=== PATIENT | male | born 1940 | race Caucasian/White ===

== ENCOUNTER 2018-07-21 14:22 | Observation (INO) ==
[2018-07-21] MEDS ORDERED: 0.9 % Sodium Chloride 1,000 ML IVC ONE (15:21)
[2018-07-21] MEDS ORDERED: methylPREDNISolone 125 MG/2 ML VIAL IVP ONE (15:21)
[2018-07-21] MEDS ORDERED: Isovue-370 500 ML INFUS..BTL IV ONE (15:21)
[2018-07-21] MEDS ORDERED: Azithromycin 500 MG in D5% in Water 250 ML IVPB ONE (15:21)
[2018-07-21] MEDS ORDERED: cefTRIAXone 1,000 MG in Water for inj. (sterile) 20 ML 10 ML IVP ONE (15:21)
[2018-07-21] MEDS ORDERED: Ipratropium/Albuterol Neb 3 ML IH ONE (15:21)
--- NOTE | 2018-07-21 15:53 | Emergency Department Note ---
Disposition Clinical Impression: Community acquired pneumonia Qualifiers: Laterality: right Lung location: lower lobe of lung Qualified Code(s): J18.1 - Lobar pneumonia, unspecified organism Disposition: Admitted As Inpatient Condition: Fair Referrals: Igor Casarez MD [Partnered Physician] - Forms: ED Satisfaction Letter Time of Disposition: 18:46 SOB HPI - General Chief Complaint: ED Shortness of Breath/Dyspnea Stated Complaint: SOB, constipation Time Seen by Provider: 07/21/18 14:50 Source: patient Mode of arrival: ambulatory Limitations: no limitations Nursing Notes Reviewed: Yes Vital Signs Reviewed: Yes - History of Present Illness 77-year-old male with medical history including liver cancer currently undergoing chemotherapy treatment as well as COPD. Patient did have surgery partially one year ago to remove part of the liver to remove the cancer there st ill seasonally still undergoing chemotherapy treatment. Did have chemotherapy done on currently on no 4 week course. He said he has not had a bowel movement since last which is abnormal for him but the main reasoning's years of hard time breathing that worsened over the last week and discontinued it worse. Does have COPD while or congestion a lot more sinus drainage. Patient status does not feel well they have noted fevers at home as well. Patient said he does not have pain anywhere or no abdominal pain no chest pain just does not feel well all over. Otherwise has no other complaints including nausea, vomiting, headache, blurry vision, neck pain, back pain, chest pain, abdominal pain, changes with pain with urination, pain or tingling going down the arms or legs or generalized weakness. - Related Data Home Medications Medication Instructions Recorded Confirmed ARIPiprazole [Abilify] 2 mg PO HS 06/11/18 07/17/18 Amlodipine Besylate 5 mg PO DAILY 06/11/18 07/17/18 Omeprazole [PriLOSEC] 20 mg PO DAILY 06/11/18 07/17/18 Ciclopirox/Ure/Camph/Menth/Euc 34.6 ml TP AD 06/26/18 07/17/18 [Ciclodan 8% Kit] Ipratropium/Albuterol Neb [Duoneb] 3 ml IH Q6HR 07/21/18 07/21/18 Trazodone HCl 100 mg PO HS 01/07/19 01/07/19 Previous Rx's Medication Instructions Recorded Ondansetron [Zofran] 8 mg PO Q8HR PRN #90 tablet 06/11/18 Prochlorperazine Maleate 10 mg PO Q8HR PRN #90 tablet 06/11/18 [Compazine] Allergies Allergy/AdvReac Type Severity Reaction Status Date / Time Bzjbosq-Hnj-Nsb Reductase AdvReac Joint Pain Verified 07/17/18 13:24 Inhibitor [Statins] Tetanus Vaccines and Toxoid AdvReac Rash Verified 07/17/18 13:24 [Tetanus Vaccines & Toxoid] All systems ED: reviewed and negative except as stated. Review of Systems: As Per HPI Past Medical History - Past Medical History Attestation: Yes The following information was validated with the patient. Source: patient Medical history: Reports: arthritis, cancer, COPD, coronary artery disease, RA, other Surgical history: Reports: angioplasty/stent, appendectomy Psychiatric history: Reports: no psych history - Social History Smoking Status: Former smoker Smokeless Tobacco Status: No Alcohol use: Reports: none Drug use: Reports: none Physical Exam - General Limitations: no limitations General appearance: alert, in no apparent distress - Head Head exam: atraumatic, normocephalic, normal inspection - Eye Eye exam: Present: normal appearance, PERRL, EOMI - ENT ENT exam: normal exam, normal oropharynx, mucous membranes moist - Neck Neck exam: Present: normal inspection, full ROM, trachea midline - Chest Chest inspection: Present: normal inspection, symmetric chest wall rise - Respiratory Respiratory exam: Present: wheezes (And rhonchi bilaterally throughout), accessory muscle use, prolonged expiratory phase. Absent: respiratory distress, stridor - Cardiovascular Cardiovascular exam: Present: normal rhythm, tachycardia, normal heart sounds - Abdominal Exam Abdominal exam: Present: soft, Non-Tender, normal bowel sounds. Absent: tenderness, distention, guarding, rebound, rigidity - Extremities Exam Extremities exam: Present: pedal edema (1+) - Expanded Lower Extremity Exam Hip/Pelvis exam: Present: normal inspection, full ROM Upper leg exam: Present: normal inspection, full ROM Knee exam: Present: normal inspection, full ROM Lower leg exam: Present: normal inspection, full ROM Ankle exam: Present: normal inspection, full ROM Foot/toe exam: Present: normal inspection, full ROM Neurovascular/Tendon exam: Absent: motor deficit, sensory deficit, tendon deficit - Back Exam Back exam: Present: normal inspection, full ROM. Absent: tenderness - Neurological Exam Neurological exam: Present: alert, oriented X3 - Skin Skin exam: Present: warm, dry, intact, normal color Course Course Narrative: Patient does meet Sirs criteria so we will get septic protocol set including CBC, BMP, lactate, blood cultures we will give patient 1 L IV fluids and reassess patient does have history of fluid overloaded so we will not give him the full 20 ml per kilogram bolus. We will give patient azithromycin and ceftriaxone IV as this most likely sounds like pneumonia. We will get chest x- ray. Patient does have cancer so there is risk for possible pulmonary embolism due to patient being hypoxic as well as tachycardic we will get CT Lilly of the chest. Patient most likely will be admitted for further evaluation. Patient is not in severe sepsis or septic shock at this time blood pressure is stable. - Reevaluation(s) Reevaluation #1: Patient was actively vomiting he says he normally takes Compazine and Zofran due to the worry about akathisia as I will just give patient 4 mg Zofran see if that helps and then reevaluate. Time: 16:01 Vital Signs Temperature 99.5 F 07/21/18 14:28 Pulse Rate 106 07/21/18 14:28 Respiratory Rate 22 07/21/18 14:28 Blood Pressure 145/66 07/21/18 14:28 O2 Sat by Pulse Oximetry 93 07/21/18 14:28 Temperature 100.1 F H 07/21/18 14:49 Pulse Rate 118 07/21/18 15:44 Respiratory Rate 26 07/21/18 15:44 Blood Pressure 145/66 07/21/18 14:49 O2 Sat by Pulse Oximetry 95 07/21/18 15:44 Oxygen Delivery Oxygen Delivery Nasal Cannula Shortness of Breath/Dyspnea - [facility] Narrative Medical decision making narrative: Patient here with history of hepatic carcinoma. He is currently on chemotherapy. He did meet Sirs criteria so we started patient on his 1 L of IV fluid as did not want to fluid overload the patient. He was on septic shock or and severe sepsis. Did start antibiotics ceftriaxone and azithromycin is most likely ischemia acquired pneumonia. Did get blood cultures which are still pending. Otherwise no labs at any acute findings. Patient was not neutropenic but did have low white count. Patient did have a fever. Patient is feeling much better after receiving 2 nebs antibiotics and fluid bolus. Due to patient having the kidney acquired pneumonia based on CT Lilly the chest with no pulmonary embolism we felt that admission was warranted. I spoke with Dr. Spicer who agreed to admit the patient to the hospitalist service. Patient is admitted in stable condition. Chest X-Ray 07/21/18 15:21 IMPRESSION: Mild pulmonary edema. D/ / 07/21/2018 16:38:55 Vinnie Hutchison MD / denton Interpreting Provider: Vinnie Hutchison MD Chest CTA 07/21/18 15:23 IMPRESSION: 1. No evidence for acute pulmonary embolism but note that studies somewhat limited due to less than optimal enhancement of particularly in the lobar and segmental pulmonary arteries. 2. New posterior right lower lobe bronchiolar wall thickening with some new patchy parenchymal densities and increase in bandlike reticular densities suggest bronchitis and atelectasis and possible developing pneumonia. D/ / Scout Pineda MD / Scout Pineda MD Interpreting Provider: Scout Pineda MD - Medical Records Medical records reviewed: Yes I reviewed the patient's medical records. - Lab Data Lab results reviewed: Yes I reviewed the patient's lab results. Result diagrams: 07/21/18 16:24 07/21/18 15:21 Lab Results 07/21/18 07/21/18 07/21/18 Range/Units 15:21 15:30 15:50 WBC (4.3-11.1) K/mcL RBC (4.19-5.50) M/mcL Hgb (12.9-16.9) g/dL Hct (37.5-50.1) % MCV (83.0-100.0) fL MCH (28.0-33.3) pg MCHC (31.6-35.5) g/dL RDW (11.5-14.5) % Plt Count (140-400) K/mcL MPV (9.4-12.4) fL Immature Gran % (0-4) % Seg Neutrophils % % Lymphocytes % % Monocytes % % Eosinophils % % Basophils % % Neutrophils # (1.6-8.9) K/mcL Lymphocytes # (0.6-4.6) K/mcL Monocytes # (0.0-1.3) K/mcL Eosinophils # (0.0-0.6) K/mcL Basophils # (0.0-0.2) K/mcL Sodium 133 L (136-145) mEq/L Potassium 4.5 (3.5-5.1) mEq/L Chloride 99 (98-107) mEq/L Carbon Dioxide 26 (23-29) mEq/L BUN 24 H (8-23) mg/dL Creatinine 0.99 (0.70-1.30) mg/dL Est GFR ( Amer) > 60 (> 60) Est GFR (Non-Af Amer) > 60 (> 60) BUN/Creatinine Ratio 24 (6-26) Glucose 180 H (70-105) mg/dL Calculated Osmolality 285 (280-300) Lactic Acid 1.1 (0.5-2.2) mmol/L Calcium 9.6 (8.6-10.3) mg/dL Troponin I < 0.03 (< 0.04) ng/mL B-Natriuretic Peptide (Less than 100) pg/mL Urine Color (Yellow) Urine Clarity (Clear) Urine pH (5.0-8.0) pH Units Ur Specific [place] (1.010-1.025) Urine Protein (Neg-Trace) mg/dL Urine Glucose (UA) (Normal) mg/dL Urine Ketones (Negative) mg/dL Urine Blood (Negative) Urine Nitrite (Negative) Urine Bilirubin (Negative) Urine Urobilinogen (Normal) mg/dL Ur Leukocyte Esterase (Negative) Urine Microscopic RBC (0-3) per hpf Urine Microscopic WBC (0-3) per hpf Ur Squamous Epith Cells (None-Few) per lpf Urine Bacteria (None-Few) per hpf Hyaline Casts (None-Few) per lpf Ur Culture Indicated? (NO) Specimen Rejected Clotted 07/21/18 07/21/18 07/21/18 Range/Units 16:00 16:24 16:24 WBC 4.5 (4.3-11.1) K/mcL RBC 4.45 (4.19-5.50) M/mcL Hgb 13.7 D (12.9-16.9) g/dL Hct 39.5 (37.5-50.1) % MCV 88.8 (83.0-100.0) fL MCH 30.8 (28.0-33.3) pg MCHC 34.7 (31.6-35.5) g/dL RDW 15.9 H (11.5-14.5) % Plt Count 155 (140-400) K/mcL MPV 10.0 (9.4-12.4) fL Immature Gran % 1.8 (0-4) % Seg Neutrophils % 53.4 % Lymphocytes % 34.7 % Monocytes % 6.5 % Eosinophils % 2.9 % Basophils % 0.7 % Neutrophils # 2.4 (1.6-8.9) K/mcL Lymphocytes # 1.6 (0.6-4.6) K/mcL Monocytes # 0.3 (0.0-1.3) K/mcL Eosinophils # 0.1 (0.0-0.6) K/mcL Basophils # 0.0 (0.0-0.2) K/mcL Sodium (136-145) mEq/L Potassium (3.5-5.1) mEq/L Chloride (98-107) mEq/L Carbon Dioxide (23-29) mEq/L BUN (8-23) mg/dL Creatinine (0.70-1.30) mg/dL Est GFR ( Amer) (> 60) Est GFR (Non-Af Amer) (> 60) BUN/Creatinine Ratio (6-26) Glucose (70-105) mg/dL Calculated Osmolality (280-300) Lactic Acid (0.5-2.2) mmol/L Calcium (8.6-10.3) mg/dL Troponin I (< 0.04) ng/mL B-Natriuretic Peptide 36 (Less than 100) pg/mL Urine Color Yellow (Yellow) Urine Clarity Clear (Clear) Urine pH 6.0 (5.0-8.0) pH Units Ur Specific [place] 1.016 (1.010-1.025) Urine Protein 30 H (Neg-Trace) mg/dL Urine Glucose (UA) Normal (Normal) mg/dL Urine Ketones Negative (Negative) mg/dL Urine Blood Negative (Negative) Urine Nitrite Negative (Negative) Urine Bilirubin Negative (Negative) Urine Urobilinogen Normal (Normal) mg/dL Ur Leukocyte Esterase Negative (Negative) Urine Microscopic RBC 0-3 (0-3) per hpf Urine Microscopic WBC 0-3 (0-3) per hpf Ur Squamous Epith Cells Moderate H (None-Few) per lpf Urine Bacteria None Seen (None-Few) per hpf Hyaline Casts None Seen (None-Few) per lpf Ur Culture Indicated? NO (NO) Specimen Rejected - Radiology Data Radiology results reviewed: Yes I reviewed the patient's radiology results. - EKG Data EKG attestation: Yes I reviewed and interpreted this EKG. EKG results narrative: EKG done at 1435 review myself and the attending shows sinus rhythm with a right bundle-branch block and PVCs at a rate of 114, GA interval 146, QRS 150, QTC 409. There is no acute ST changes no acute T-wave changes no other signs of ischemia. There is a right bundle branch block no other blocks. No hypertrophy, heart stent. No WPW/Brugada/HOCM. There are various PVCs. No changes except for the tachycardia in the old EKG done 08/17/16.
[2018-07-21] MEDS ORDERED: Prochlorperazine 10 MG/2 ML VIAL IVP STA (15:54)
[2018-07-21] MEDS ORDERED: Ondansetron 4 MG/2 ML VIAL IVP ONE (15:57)
--- NOTE | 2018-07-21 16:13 | Emergency Department Note ---
Disposition Clinical Impression: Community acquired pneumonia Disposition: Admitted As Inpatient Condition: Fair General Adult HPI - General Chief complaint: ED Shortness of Breath/Dyspnea Stated complaint: SOB, constipation Time Seen by Provider: 07/21/18 14:50 Source: patient Mode of arrival: ambulatory Limitations: no limitations Nursing Notes Reviewed: Yes Vital Signs Reviewed: Yes - History of Present Illness Pain Scale: 0 - Related Data Home Medications Medication Instructions Recorded Confirmed ARIPiprazole [Abilify] 2 mg PO HS 06/11/18 07/21/18 Omeprazole [PriLOSEC] 20 mg PO DAILY 06/11/18 07/21/18 RX: Amlodipine Besylate 5 mg PO DAILY 06/11/18 07/21/18 Ciclopirox/Ure/Camph/Menth/Euc 34.6 ml TP AD 06/26/18 07/21/18 [Ciclodan 8% Kit] Ipratropium/Albuterol Neb [Duoneb] 3 ml IH Q6HR 07/21/18 07/21/18 RX: Trazodone HCl 100 mg PO HS 07/21/18 07/21/18 Previous Rx's Medication Instructions Recorded Ondansetron [Zofran] 8 mg PO Q8HR PRN #90 tablet 06/11/18 Prochlorperazine Maleate 10 mg PO Q8HR PRN #90 tablet 06/11/18 [Compazine] Allergies Allergy/AdvReac Type Severity Reaction Status Date / Time Opdaisk-Aju-Jts Reductase AdvReac Joint Pain Verified 07/17/18 13:24 Inhibitor [Statins] Tetanus Vaccines and Toxoid AdvReac Rash Verified 07/17/18 13:24 [Tetanus Vaccines & Toxoid] Past Medical History - Past Medical History Medical history: Reports: arthritis, cancer, COPD, coronary artery disease, RA, other Surgical history: Reports: angioplasty/stent, appendectomy Psychiatric history: Reports: no psych history - Social History Smoking Status: Former smoker Smokeless Tobacco Status: No Alcohol use: Reports: none Drug use: Reports: none Physical Exam - General Limitations: no limitations General appearance: alert, in no apparent distress Course Vital Signs Temperature 99.5 F 07/21/18 14:28 Pulse Rate 106 07/21/18 14:28 Respiratory Rate 22 07/21/18 14:28 Blood Pressure 145/66 07/21/18 14:28 O2 Sat by Pulse Oximetry 93 07/21/18 14:28 Temperature 100.1 F H 07/21/18 14:49 Pulse Rate 118 07/21/18 15:44 Respiratory Rate 26 07/21/18 15:44 Blood Pressure 145/66 07/21/18 14:49 O2 Sat by Pulse Oximetry 95 07/21/18 15:44 Oxygen Delivery Oxygen Delivery Nasal Cannula Medical Decision Making - MDM Narrative Medical decision making narrative: Chest X-Ray 07/21/18 15:21 IMPRESSION: Mild pulmonary edema. D/ / 07/21/2018 16:38:55 Vinnie Hutchison MD / denton Interpreting Provider: Vinnie Hutchison MD 1643 hrs.: We will admit him into the hospital start him on antibiotics and then speak with oncology and hospitalist. Chest X-Ray 07/21/18 15:21 IMPRESSION: Mild pulmonary edema. D/ / 07/21/2018 16:38:55 Vinnie Hutchison MD / denton Interpreting Provider: Vinnie Hutchison MD Chest CTA 07/21/18 15:23 IMPRESSION: 1. No evidence for acute pulmonary embolism but note that studies somewhat limited due to less than optimal enhancement of particularly in the lobar and segmental pulmonary arteries. 2. New posterior right lower lobe bronchiolar wall thickening with some new patchy parenchymal densities and increase in bandlike reticular densities suggest bronchitis and atelectasis and possible developing pneumonia. D/ / Scout Pineda MD / Scout Pineda MD Interpreting Provider: Scout Pineda MD I controlled 2 1737 hrs.: Patient does have a developing pneumonia on CTA. Has not been in the hospital last 90 days so we will go and treat him as an outpatient pneumonia. Admission to the hospital. Patient's in agreement with plan. - Lab Data Result diagrams: 07/21/18 16:24 07/21/18 15:21 Lab Results 07/21/18 07/21/18 07/21/18 Range/Units 15:21 15:30 15:50 WBC (4.3-11.1) K/mcL RBC (4.19-5.50) M/mcL Hgb (12.9-16.9) g/dL Hct (37.5-50.1) % MCV (83.0-100.0) fL MCH (28.0-33.3) pg MCHC (31.6-35.5) g/dL RDW (11.5-14.5) % Plt Count (140-400) K/mcL MPV (9.4-12.4) fL Immature Gran % (0-4) % Seg Neutrophils % % Lymphocytes % % Monocytes % % Eosinophils % % Basophils % % Neutrophils # (1.6-8.9) K/mcL Lymphocytes # (0.6-4.6) K/mcL Monocytes # (0.0-1.3) K/mcL Eosinophils # (0.0-0.6) K/mcL Basophils # (0.0-0.2) K/mcL Sodium 133 L (136-145) mEq/L Potassium 4.5 (3.5-5.1) mEq/L Chloride 99 (98-107) mEq/L Carbon Dioxide 26 (23-29) mEq/L BUN 24 H (8-23) mg/dL Creatinine 0.99 (0.70-1.30) mg/dL Est GFR ( Amer) > 60 (> 60) Est GFR (Non-Af Amer) > 60 (> 60) BUN/Creatinine Ratio 24 (6-26) Glucose 180 H (70-105) mg/dL Calculated Osmolality 285 (280-300) Lactic Acid 1.1 (0.5-2.2) mmol/L Calcium 9.6 (8.6-10.3) mg/dL Troponin I < 0.03 (< 0.04) ng/mL B-Natriuretic Peptide (Less than 100) pg/mL Urine Color (Yellow) Urine Clarity (Clear) Urine pH (5.0-8.0) pH Units Ur Specific [place] (1.010-1.025) Urine Protein (Neg-Trace) mg/dL Urine Glucose (UA) (Normal) mg/dL Urine Ketones (Negative) mg/dL Urine Blood (Negative) Urine Nitrite (Negative) Urine Bilirubin (Negative) Urine Urobilinogen (Normal) mg/dL Ur Leukocyte Esterase (Negative) Urine Microscopic RBC (0-3) per hpf Urine Microscopic WBC (0-3) per hpf Ur Squamous Epith Cells (None-Few) per lpf Urine Bacteria (None-Few) per hpf Hyaline Casts (None-Few) per lpf Ur Culture Indicated? (NO) Specimen Rejected Clotted 07/21/18 07/21/18 07/21/18 Range/Units 16:00 16:24 16:24 WBC 4.5 (4.3-11.1) K/mcL RBC 4.45 (4.19-5.50) M/mcL Hgb 13.7 D (12.9-16.9) g/dL Hct 39.5 (37.5-50.1) % MCV 88.8 (83.0-100.0) fL MCH 30.8 (28.0-33.3) pg MCHC 34.7 (31.6-35.5) g/dL RDW 15.9 H (11.5-14.5) % Plt Count 155 (140-400) K/mcL MPV 10.0 (9.4-12.4) fL Immature Gran % 1.8 (0-4) % Seg Neutrophils % 53.4 % Lymphocytes % 34.7 % Monocytes % 6.5 % Eosinophils % 2.9 % Basophils % 0.7 % Neutrophils # 2.4 (1.6-8.9) K/mcL Lymphocytes # 1.6 (0.6-4.6) K/mcL Monocytes # 0.3 (0.0-1.3) K/mcL Eosinophils # 0.1 (0.0-0.6) K/mcL Basophils # 0.0 (0.0-0.2) K/mcL Sodium (136-145) mEq/L Potassium (3.5-5.1) mEq/L Chloride (98-107) mEq/L Carbon Dioxide (23-29) mEq/L BUN (8-23) mg/dL Creatinine (0.70-1.30) mg/dL Est GFR ( Amer) (> 60) Est GFR (Non-Af Amer) (> 60) BUN/Creatinine Ratio (6-26) Glucose (70-105) mg/dL Calculated Osmolality (280-300) Lactic Acid (0.5-2.2) mmol/L Calcium (8.6-10.3) mg/dL Troponin I (< 0.04) ng/mL B-Natriuretic Peptide 36 (Less than 100) pg/mL Urine Color Yellow (Yellow) Urine Clarity Clear (Clear) Urine pH 6.0 (5.0-8.0) pH Units Ur Specific [place] 1.016 (1.010-1.025) Urine Protein 30 H (Neg-Trace) mg/dL Urine Glucose (UA) Normal (Normal) mg/dL Urine Ketones Negative (Negative) mg/dL Urine Blood Negative (Negative) Urine Nitrite Negative (Negative) Urine Bilirubin Negative (Negative) Urine Urobilinogen Normal (Normal) mg/dL Ur Leukocyte Esterase Negative (Negative) Urine Microscopic RBC 0-3 (0-3) per hpf Urine Microscopic WBC 0-3 (0-3) per hpf Ur Squamous Epith Cells Moderate H (None-Few) per lpf Urine Bacteria None Seen (None-Few) per hpf Hyaline Casts None Seen (None-Few) per lpf Ur Culture Indicated? NO (NO) Specimen Rejected Attestation Statement - Attestation Attestation: This documentation is done with the assistance of Dragon dictation. Despite efforts made to ensure accuracy, there may be inaccuracies in hair or beauty salon manager or spelling and typographical errors. I examined this patient and my medical decision-making was reviewed with the Resident Physician. I agree with the documented findings, disposition and treatment plan as described except to the extent set forth below. Patient seen and evaluated by Dr. Aguilar and myself, agree with his evaluation and treatment plan, I supervised the care the patient's stay. Patient's in the cancer center with liver and kidney cancer. He is getting chemotherapy now. He said a history of COPD and has not been feeling very well. We will order a workup on him and he most likely will need admission. No focal deficits he needs SIRS criteria but does not appear toxic.
[2018-07-21 16:26] LABS: BUN/Creatinine Ratio 24 (6-26); Blood Urea Nitrogen 24 mg/dL (8-23); Calcium 9.6 mg/dL (8.6-10.3); Carbon Dioxide 26 mEq/L (23-29); Chloride 99 mEq/L (98-107); Glucose 180 mg/dL (70-105); Osmolality,Calculated 285 (280-300); Potassium 4.5 mEq/L (3.5-5.1); Sodium 133 mEq/L (136-145); Troponin I < 0.03 ng/mL (< 0.04); eGFR For Non-African Americans > 60 (> 60)
[2018-07-21 16:35] LABS: Basophils % 0.7 %; Eosinophils # 0.1 K/mcL (0.0-0.6); Eosinophils % 2.9 %; Hematocrit 39.5 % (37.5-50.1); Hemoglobin 13.7 g/dL (12.9-16.9); Immature Granulocytes % 1.8 % (0-4); Lymphocytes # 1.6 K/mcL (0.6-4.6); Lymphocytes % 34.7 %; Mean Corpuscular HGB Conc 34.7 g/dL (31.6-35.5); Mean Corpuscular Hemoglobin 30.8 pg (28.0-33.3); Mean Corpuscular Volume 88.8 fL (83.0-100.0); Monocytes # 0.3 K/mcL (0.0-1.3); Monocytes % 6.5 %; Neutrophils # 2.4 K/mcL (1.6-8.9); Platelet Count 155 K/mcL (140-400); Red Blood Count 4.45 M/mcL (4.19-5.50); Red Cell Distribution Width 15.9 % (11.5-14.5); Segmented Neutrophils % 53.4 %
[2018-07-21 16:47] LABS: Bilirubin,Urine Negative (Negative); Blood,Urine Negative (Negative); Clarity,Urine Clear (Clear); Color,Urine Yellow (Yellow); Glucose,Urine (UA) Normal (Normal); Ketones,Urine Negative (Negative); Leukocyte Esterase,Urine Negative (Negative); Nitrite,Urine Negative (Negative); Protein,Urine 30 mg/dL (Neg-Trace); Specific Gravity,Urine 1.016 (1.010-1.025); Urobilinogen,Urine Normal (Normal)
[2018-07-21 16:49] LABS: Bacteria,Urine None Seen per hpf (None-Few); Hyaline Casts,Urine None Seen per lpf (None-Few); RBC,Urine 0-3 per hpf (0-3); Squamous Epithelial Cell,Urine Moderate per lpf (None-Few); WBC,Urine 0-3 per hpf (0-3)
--- NOTE | 2018-07-21 20:46 | Internal Med History&Physical ---
Date of Encounter: 07/21/18 Time of Encounter: 20:35 Internal Medicine - H&P: HPI Chief complaint: SOB History of present illness: Mr. 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 Patient is currently on chemotherapy for his history of cholangiocarcinoma the last treatment of which was received . Comes in now with progressive shortness of breath for the past week. Patient was give only 1 L of IV fluid in ED due to concern for fluid overload. Patient was not neutropenic but did have low white count. Patient did have a low grade fever. Patient is feeling much better after receiving 2 nebs antibiotics and fluid bolus. Admitted for possible community-acquired pneumonia. Past Med Surg Social Fam HX - Past Medical History Medical history: arthritis, cancer, COPD, coronary artery disease, RA, other Additional medical history: Liver CA Psychiatric history: no psych history - Past Surgical History Surgical History: angioplasty/stent, appendectomy Additional surgical history: 2 stents 2009 - Social History Smoking Status: Former smoker Smokeless Tobacco Status: No Alcohol use: none Drug use: none Internal Medicine - H&P: Meds ARIPiprazole [Abilify] 2 mg PO HS 06/11/18 [History] Amlodipine Besylate 5 mg PO DAILY 06/11/18 [History] Omeprazole [PriLOSEC] 20 mg PO DAILY 06/11/18 [History] Ondansetron [Zofran] 8 mg PO Q8HR PRN #90 tablet 06/11/18 [Rx] Prochlorperazine Maleate [Compazine] 10 mg PO Q8HR PRN #90 tablet 06/11/18 [Rx] Ciclopirox/Ure/Camph/Menth/Euc [Ciclodan 8% Kit] 34.6 ml TP AD 06/26/18 [History] Ipratropium/Albuterol Neb [Duoneb] 3 ml IH Q6HR 07/21/18 [History] Trazodone HCl 100 mg PO HS 07/21/18 [History] Allergy/AdvReac Type Severity Reaction Status Date / Time Csoabct-Isd-Ino Reductase AdvReac Joint Pain Verified 07/17/18 13:24 Inhibitor [Statins] Tetanus Vaccines and Toxoid AdvReac Rash Verified 07/17/18 13:24 [Tetanus Vaccines & Toxoid] All Systems PM: A 10-system review of systems was performed and is negative for pertinent findings except as documented above in the HPI. - Constitutional Constitutional: no chills, no fever(s), no night sweats - EENT Eyes: no change in vision, no discharge, no pain, no photophobia Ears: no ear discharge, no ear pain, no tinnitus Nose, mouth and throat: no dysphagia, no nasal discharge, no neck pain, no sore throat - Cardiovascular Cardiovascular ROS IM: no chest pain, no diaphoresis, no dyspnea, no lightheadedness, no palpitations, no syncope - Respiratory Respiratory: no cough, no dyspnea, no wheezing, no excessive phlegm production - Gastrointestinal Gastrointestinal: no abdominal pain, no diarrhea, no hematemesis, no hematoche stormy, no melena, no nausea, no vomiting - Musculoskeletal Musculoskeletal ROS IM: no numbness, no tingling - Integumentary Integumentary IM: no rash, no unusual bruising - Neurological Neurological ROS: no confusion, no convulsions, no focal weakness, no numbness, no tingling, no tremor(s) - Hematologic/Lymphatic Hematologic/Lymphatic: no easy bruising - Constitutional Vitals: Temp Pulse Resp BP Pulse Ox 100.1 F H 118 26 145/66 95 07/21/18 14:49 07/21/18 15:44 07/21/18 15:44 07/21/18 14:49 07/21/18 15:44 Exam: General: Alert and oriented 3 lying in bed in no acute distress Skin:Normal color, no rash, no lesions. HEENT:EOM, pupils equal, round and reactive. Cardiovascular:Normal S1 & S2, no rubs, murmurs or gallops. No JVD. Pulse regular. Lungs: Diffuse expiratory wheeze noted Abdomen:Soft, non-tender, no rigidity. Extremities:No deformity, no edema or tenderness, no joint swelling or clubbing. Neurological:Normal cognition and motor skills. Pulses:Carotid and radial pulses normal +2. Rest of the physical exam is non contributory Internal Med - H&P Results - Labs CBC & Chem 7: 07/21/18 16:24 07/21/18 15:21 Labs: Short CBC 07/21/18 Range/Units 16:24 WBC 4.5 (4.3-11.1) K/mcL Hgb 13.7 D (12.9-16.9) g/dL Hct 39.5 (37.5-50.1) % Plt Count 155 (140-400) K/mcL Neutrophils # 2.4 (1.6-8.9) K/mcL BMP 07/21/18 15:21 Sodium 133 L Potassium 4.5 Chloride 99 Carbon Dioxide 26 BUN 24 H Creatinine 0.99 Glucose 180 H Calcium 9.6 Cardiac Enzymes 07/21/18 Range/Units 15:21 Troponin I < 0.03 (< 0.04) ng/mL Urine 07/21/18 Range/Units 16:00 Urine Color Yellow (Yellow) Urine Clarity Clear (Clear) Urine pH 6.0 (5.0-8.0) pH Units Ur Specific [place] 1.016 (1.010-1.025) Urine Protein 30 H (Neg-Trace) mg/dL Urine Glucose (UA) Normal (Normal) mg/dL - Impressions ITS Impressions Chest X-Ray 07/21/18 15:21 IMPRESSION: Mild pulmonary edema. D/ / 07/21/2018 16:38:55 Vinnie Hutchison MD / denton Interpreting Provider: Vinnie Hutchison MD Chest CTA 07/21/18 15:23 IMPRESSION: 1. No evidence for acute pulmonary embolism but note that studies somewhat limited due to less than optimal enhancement of particularly in the lobar and segmental pulmonary arteries. 2. New posterior right lower lobe bronchiolar wall thickening with some new patchy parenchymal densities and increase in bandlike reticular densities suggest bronchitis and atelectasis and possible developing pneumonia. D/ / Scout Pineda MD / Scout Pineda MD Interpreting Provider: Scout Pineda MD - Assessment and plan (1) Community acquired pneumonia Current Visit: Yes Status: Acute Assessment and plan: Patient presenting with several day history of progressive shortness of breath. Does have a history of COPD patient was started on antibiotics due to findings on CTA suggestive of pneumonia in the right lower lobe. Patient has a low-grade fever, was mildly tachypneic, tachycardic on arrival. Does not have leukocytosis. Was started on ceftriaxone and azithromycin for community-a cquired pneumonia. -Continue with antibiotics -Follow-up blood cultures -We will obtain respiratory infectious panel Qualifiers: Laterality: right Lung location: lower lobe of lung Qualified Code(s): J18.1 - Lobar pneumonia, unspecified organism (2) COPD with acute exacerbation Current Visit: No Status: Acute Assessment and plan: Mild COPD exacerbation in the setting of community-acquired pneumonia -Continue duo nebs -Steroids -Antibiotics (3) Hyponatremia Current Visit: No Status: Acute Assessment and plan: Mild hyponatremia of 133. Was given gentle hydration in the ED. 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 (6) DVT prophylaxis Current Visit: Yes Status: Acute Assessment and plan: Subcutaneous heparin - Time Spent With Patient Total time spent is greater than 50% in coordination of care (as documented) at patient's floor/unit and/or counseling patient:
[2018-07-21] MEDS ORDERED: Ondansetron ODT 4 MG TAB.RAPDIS PO PRN (20:49)
[2018-07-21] MEDS ORDERED: [UNRECOGNIZED DRUG - OTHER] TP SCH (21:00)
[2018-07-21] MEDS ORDERED: Sennosides 8.6 MG TABLET PO PRN (21:22)
[2018-07-21] MEDS: Ipratropium/Albuterol Neb 3 ML IH SCH (22:41)
[2018-07-21] MEDS: MethylPREDNISolone 40 MG/ML VIAL IVP SCH (23:21)
[2018-07-21] MEDS: ARIPiprazole 2 MG TABLET PO SCH (23:21)
[2018-07-21] MEDS: *HR* Heparin 5,000 UNIT/ML VIAL SQ SCH (23:22)
[2018-07-21] MEDS: traZODone 50 MG TABLET PO SCH (23:22)
[2018-07-22 00:40] LABS: Adenovirus Not Detected (Not Detect); Bordetella Pertussis Not Detected (Not Detect); Chlamydophila pneumoniae Not Detected (Not Detect); Coronavirus 229E Not Detected (Not Detect); Coronavirus HKU1 Not Detected (Not Detect); Coronavirus NL63 Not Detected (Not Detect); Coronavirus OC43 Not Detected (Not Detect); Human Metapneumovirus Not Detected (Not Detect); Human Rhinovirus/Enterovirus Not Detected (Not Detect); Influenza A Subtype 2009 H1 Not Detected (Not Detect); Influenza A Untypeable Not Detected (Not Detect); Influenza B Not Detected (Not Detect); Mycoplasma pneumoniae Not Detected (Not Detect); Parainfluenza Virus 1 Not Detected (Not Detect); Parainfluenza Virus 2 Not Detected (Not Detect); Parainfluenza Virus 3 Not Detected (Not Detect); Parainfluenza Virus 4 Not Detected (Not Detect); Respiratory Syncytial Virus DETECTED (Not Detect)
[2018-07-22] MEDS: Ipratropium/Albuterol Neb 3 ML IH SCH ×4 (04:02→22:56)
[2018-07-22] MEDS: *HR* Heparin 5,000 UNIT/ML VIAL SQ SCH ×3 (06:04→21:08)
[2018-07-22] MEDS: MethylPREDNISolone 40 MG/ML VIAL IVP SCH ×3 (06:04→17:19)
[2018-07-22] MEDS: amLODIPine 5 MG TABLET PO SCH (08:15)
[2018-07-22] MEDS: cefTRIAXone 1,000 MG in Water for inj. (sterile) 20 ML 10 ML IVP SCH (08:17)
[2018-07-22] MEDS: Azithromycin 500 MG in D5% in Water 250 ML IVPB SCH (08:19)
--- NOTE | 2018-07-22 09:29 | Internal Med Progress Note ---
Hospitalist Progress Note - Encounter Date of Encounter: 07/22/18 Time of Encounter: 11:00 - Subjective Interval History: Patient with a past medical history significant for adenocarcinoma, cholangiocarcinoma with liver metastases and COPD presents with shortness of breath found to have RSV and questionable pneumonia with COPD exacerbation. - Exam Vitals: Temp Pulse Resp BP Pulse Ox 97.6 F 82 16 110/70 95 07/22/18 07:38 07/22/18 07:38 07/22/18 07:38 07/22/18 07:38 07/22/18 07:38 Exam: General: Alert and oriented 3 lying in bed in no acute distress Skin:Normal color, no rash, no lesions. HEENT:EOM, pupils equal, round and reactive. Cardiovascular:Normal S1 & S2, no rubs, murmurs or gallops. No JVD. Pulse regular. Lungs: Diffuse expiratory wheeze noted Abdomen:Soft, non-tender, no rigidity. Extremities:No deformity, no edema or tenderness, no joint swelling or clubbing. Neurological:Normal cognition and motor skills. Pulses:Carotid and radial pulses normal +2. Rest of the physical exam is non contributory - Assessment and Plan (1) RSV (acute bronchiolitis due to respiratory syncytial virus) Current Visit: Yes Status: Acute Assessment and Plan: Patient presented with shortness of breath secondary to RSV and questionable pneumonia on CTPA Will continue supportive care for RSV and treatment for questionable pneumonia and COPD exacerbation as below (2) Community acquired pneumonia Current Visit: Yes Status: Acute Assessment and Plan: She presented with shortness of breath and findings on CTA suggestive of pneumonia in the right lower lobe. Patient with a MAXIMUM TEMPERATURE of 100.1 overnight Continue day 2 of IV azithromycin and ceftriaxone (3) COPD with acute exacerbation Current Visit: No Status: Acute Assessment and Plan: Suspect secondary to the above Will continue scheduled DuoNeb with IV Solu-Medrol (4) Cholangiocarcinoma Current Visit: No Status: Acute Assessment and Plan: Patient with a past medical history significant for adenocarcinoma, cholangiocarcinoma with liver metastases;currently receiving chemotherapy. DVT Prophylaxis: Heparin subcutaneous - Time Spent with Patient Total time spent is greater than 50% in coordination of care (as documented) at patient's floor/unit and/or counseling patient: Internal Medicine: Result - Labs CBC & Chem 7: 07/22/18 09:30 07/22/18 09:30 Labs: Short CBC 07/21/18 Range/Units 16:24 WBC 4.5 (4.3-11.1) K/mcL Hgb 13.7 D (12.9-16.9) g/dL Hct 39.5 (37.5-50.1) % Plt Count 155 (140-400) K/mcL Neutrophils # 2.4 (1.6-8.9) K/mcL BMP 07/21/18 15:21 Sodium 133 L Potassium 4.5 Chloride 99 Carbon Dioxide 26 BUN 24 H Creatinine 0.99 Glucose 180 H Calcium 9.6 Cardiac Enzymes 07/21/18 Range/Units 15:21 Troponin I < 0.03 (< 0.04) ng/mL Urine 07/21/18 Range/Units 16:00 Urine Color Yellow (Yellow) Urine Clarity Clear (Clear) Urine pH 6.0 (5.0-8.0) pH Units Ur Specific [place] 1.016 (1.010-1.025) Urine Protein 30 H (Neg-Trace) mg/dL Urine Glucose (UA) Normal (Normal) mg/dL - Impressions Impressions Chest X-Ray 07/21/18 15:21 IMPRESSION: Mild pulmonary edema. D/ / 07/21/2018 16:38:55 Vinnie Hutchison MD / denton Interpreting Provider: Vinnie Hutchison MD Chest CTA 07/21/18 15:23 IMPRESSION: 1. No evidence for acute pulmonary embolism but note that studies somewhat limited due to less than optimal enhancement of particularly in the lobar and segmental pulmonary arteries. 2. New posterior right lower lobe bronchiolar wall thickening with some new patchy parenchymal densities and increase in bandlike reticular densities suggest bronchitis and atelectasis and possible developing pneumonia. D/ / Scout Pineda MD / Scout Pineda MD Interpreting Provider: Scout Pineda MD Consult Discharge Plan - Plan Referrals: Igor Casarez MD [Primary Care Provider] - (2) Community acquired pneumonia Qualifiers: Laterality: right Lung location: lower lobe of lung Qualified Code(s): J18.1 - Lobar pneumonia, unspecified organism
[2018-07-22 09:59] LABS: Hematocrit 39.3 % (37.5-50.1); Hemoglobin 13.1 g/dL (12.9-16.9); Mean Corpuscular HGB Conc 33.3 g/dL (31.6-35.5); Mean Corpuscular Hemoglobin 30.3 pg (28.0-33.3); Platelet Count 174 K/mcL (140-400); Red Blood Count 4.32 M/mcL (4.19-5.50); Red Cell Distribution Width 15.3 % (11.5-14.5)
[2018-07-22 10:20] LABS: Alanine Aminotransferase 78 Units/L (7-52); Albumin 3.6 g/dL (3.5-5.7); Albumin/Globulin Ratio 1.7 (1.1-2.2); Alkaline Phosphatase 64 Units/L (34-104); Aspartate Amino Transferase 28 Units/L (13-39); BUN/Creatinine Ratio 26 (6-26); Bilirubin,Total 0.4 mg/dL (0.3-1.0); Blood Urea Nitrogen 28 mg/dL (8-23); Calcium 8.8 mg/dL (8.6-10.3); Carbon Dioxide 21 mEq/L (23-29); Chloride 100 mEq/L (98-107); Globulin 2.1 g/dL (2.4-3.5); Glucose 487 mg/dL (70-105); Osmolality,Calculated 299 (280-300); Potassium 4.4 mEq/L (3.5-5.1); Sodium 131 mEq/L (136-145); Total Protein 5.7 g/dL (6.4-8.9); eGFR For Non-African Americans > 60 (> 60)
[2018-07-22 10:22] LABS: Lymphocytes # 0.5 K/mcL (0.6-4.6); Monocytes # 0.1 K/mcL (0.0-1.3); Neutrophils # 2.9 K/mcL (1.6-8.9); Platelet Estimate Normal (Normal)
[2018-07-22] MEDS ORDERED: Lactulose Oral Soln 20 GM/30 ML UDC PO ONE (12:51)
[2018-07-22] MEDS ORDERED: Dextrose Gel 15 GM/37.5 ML TUBE PO PRN ×2 (13:03)
[2018-07-22] MEDS ORDERED: D5% in Water 1,000 ML IVC PRN (13:03)
[2018-07-22] MEDS ORDERED: *HR* Dextrose 50 % in Water (Syg) 50 ML SYRINGE IVP PRN (13:03)
[2018-07-22] MEDS: Insulin LISPRO 300 UNITS/3 ML VIAL SQ SCH (17:17)
--- NOTE | 2018-07-22 18:10 | Oncology Inp Consult Note ---
<Anna Garza - Last Filed: 07/23/18 11:25> Date of Encounter: 07/22/18 Time of Encounter: 16:45 Assessment and Plan (1) Cholangiocarcinoma Status: Acute Assessment and plan: Patient is due for cycle 2, day 8 gemcitabine this week. Discussed with patient that we will hold this week's treatment and likely continue with his week off as scheduled next week. We will plan to resume treatment the following week after discussing with Dr. Stevens Continue to monitor blood counts and treat supportively as below (2) RSV (acute bronchiolitis due to respiratory syncytial virus) Status: Acute Assessment and plan: Respiratory PCR reveals RSV. Admitted with COPD exacerbation and new developing right lower lobe pneumonia present on CTA. Reports subjective fevers at home, TMAX 100.1 since admission No neutropenia noted on labs currently, CBC mainly unrevealing Continue supportive management COPD exacerbation with IV Solu-Medrol and DuoNeb's. Currently on day 2 of IV azithromycin and ceftriaxone for pneumonia. (3) Constipation Status: Acute Assessment and plan: Continue senna-docusate and miralax Consider lactulose or RC for no BM on current regimen Qualifiers: Constipation type: unspecified constipation type Qualified Code(s): K59.00 - Constipation, unspecified - Data of Consult Requesting Physician: Alec Smith Primary Care Provider: Igor Casarez MD - Consult Narrative Reason for consult: Cholangiocarcinoma History of present illness: Mr. Louis is a 77 year old make currently in active treatment with gemcitabine single agent 2 weeks on, one week off regimen for poorly differentiated adenocarcinoma, cholangiocarcinoma with metastatic lesions in the liver. Prior treatment includes palliative Xeloda with radiographic regression and poor tolerability of medication. He does not have any targetable mutation per [facility] testing. She was evaluated at [facility] with recommendations to start gemcitabine on day 1, day 8 with 21 day regimen. Most recent cycle of gemcitabine was on 07/17/2018 Patient presented to [facility] ED with reports of increased shortness of breath, weakness and fevers. On admission he had a CTA of the chest which revealed no evidence of PE but did find new posterior right lower lobe wall thickening with new patchy parenchymal densities suggestive of colitis and possible developing pneumonia. Respiratory PCR is positive for RSV. He has been admitted with COPD exacerbation, supportive management of RSV and treatment of HCAP. Past Med Surg Social Fam HX - Past Medical History Medical history: arthritis, cancer, COPD, coronary artery disease, RA, other Additional medical history: Liver CA Psychiatric history: no psych history - Past Surgical History Surgical History: angioplasty/stent, appendectomy Additional surgical history: 2 stents 2009 - Social History Smoking Status: Former smoker Smokeless Tobacco Status: No Alcohol use: none Drug use: none Medications and Allergies ARIPiprazole [Abilify] 2 mg PO HS 06/11/18 [History] Amlodipine Besylate 5 mg PO DAILY 06/11/18 [History] Omeprazole [PriLOSEC] 20 mg PO DAILY 06/11/18 [History] Ondansetron [Zofran] 8 mg PO Q8HR PRN #90 tablet 06/11/18 [Rx] Prochlorperazine Maleate [Compazine] 10 mg PO Q8HR PRN #90 tablet 06/11/18 [Rx] Ciclopirox/Ure/Camph/Menth/Euc [Ciclodan 8% Kit] 34.6 ml TP AD 06/26/18 [History] Ipratropium/Albuterol Neb [Duoneb] 3 ml IH Q6HR 07/21/18 [History] Trazodone HCl 100 mg PO HS 07/21/18 [History] Allergy/AdvReac Type Severity Reaction Status Date / Time Ualqfiy-Exf-Ozz Reductase AdvReac Joint Pain Verified 07/17/18 13:24 Inhibitor [Statins] Tetanus Vaccines and Toxoid AdvReac Rash Verified 07/17/18 13:24 [Tetanus Vaccines & Toxoid] Constitutional: Present: anorexia, chills, fatigue, fever(s), malaise, weakness, weight loss Eyes: Absent: change in vision Nose, mouth and throat: Absent: dysphagia, odynophagia Cardiovascular: Absent: chest pain, palpitations Respiratory: Present: cough, dyspnea, chest congestion. Absent: hemoptysis Gastrointestinal: Present: constipation, nausea. Absent: diarrhea, vomiting Genitourinary: Absent: dysuria, hematuria Musculoskeletal: Present: muscle weakness Integumentary: Absent: rash, wounds Neurological: Absent: focal weakness, frequent falls Psychiatric: Present: as per HPI Hematologic/Lymphatic: Present: as per HPI Oncology - Exam - Constitutional General appearance: cooperative, no acute distress, no febrile - Head Head exam: Present: atraumatic - ENT ENT exam: Present: mucous membranes moist, normal oropharynx - Respiratory Respiratory exam: Present: wheezes. Absent: respiratory distress - Cardiovascular Cardiovascular exam: Present: RRR, +S1, +S2 - GI/Abdominal GI/Abdominal exam: Present: normal bowel sounds, soft. Absent: tenderness - Extremities Exam Extremities exam: Present: pedal edema. Absent: calf tenderness - Neurological Exam Neurological exam: Present: alert, oriented X3, no focal deficits, strengths equal and symetr throughout - Psychiatric Psychiatric exam: Present: normal affect, normal mood - Skin Skin exam: Present: dry, intact, normal color, warm Consult Discharge Plan - Plan Referrals: Igor Casarez MD [Primary Care Provider] - Inpatient Charges Provider: Dr. Smita Pollard <Clem Pollard - Last Filed: 07/24/18 07:20> Date of Encounter: 07/22/18 - Data of Consult Requesting Physician: Alec Smith Primary Care Provider: Igor Casarez MD - Attending Attestation I have seen and examined Mr. Louis and agree with the assessment from placed by Ms. garza. Mr. Louis is a very pleasant 77 year old man with metastatic cholangiocarcinoma. He is receiving palliative chemotherapy with single agent gemcitabine. He has presented with RSV pneumonia. He is not neutropenic. Breath sounds are diminished with some possible rales in both bases. He also has a tremor is quite anxious. We will hold his chemotherapy this week. Next week, he has off. We will plan to restart therapy in 2 weeks' time. Continue supportive measures to the primary team. Inpatient Charges Provider: Dr. Smita Pollard Consult - Inpatient Medicare Only: [id number]
[2018-07-22] MEDS ORDERED: Insulin LISPRO 300 UNITS/3 ML VIAL SQ SCH (21:00)
[2018-07-22] MEDS: traZODone 50 MG TABLET PO SCH (21:08)
[2018-07-22] MEDS: ARIPiprazole 2 MG TABLET PO SCH (21:08)
[2018-07-23] MEDS: MethylPREDNISolone 40 MG/ML VIAL IVP SCH ×3 (02:17→12:10)
[2018-07-23] MEDS: Ipratropium/Albuterol Neb 3 ML IH SCH ×4 (04:45→22:38)
[2018-07-23] MEDS: *HR* Heparin 5,000 UNIT/ML VIAL SQ SCH ×3 (06:20→21:45)
[2018-07-23] MEDS: cefTRIAXone 1,000 MG in Water for inj. (sterile) 20 ML 10 ML IVP SCH (08:27)
[2018-07-23] MEDS: amLODIPine 5 MG TABLET PO SCH (08:27)
[2018-07-23] MEDS: Insulin LISPRO 300 UNITS/3 ML VIAL SQ SCH ×3 (08:27→17:19)
[2018-07-23] MEDS: Azithromycin 500 MG in D5% in Water 250 ML IVPB SCH (08:28)
[2018-07-23] MEDS ORDERED: Insulin LISPRO 300 UNITS/3 ML VIAL SQ SCH (08:30)
[2018-07-23] MEDS: Insulin DETEMIR 100 UNIT/ML X5UNITS SQ SCH ×2 (10:34→21:46)
[2018-07-23 11:09] LABS: Estimated Average Glucose 163 mg/dl; Hemoglobin A1C 7.3 %
[2018-07-23] MEDS: Sennosides 8.6 MG TABLET PO SCH ×2 (12:09→21:44)
--- NOTE | 2018-07-23 12:41 | Internal Med Progress Note ---
Hospitalist Progress Note - Encounter Date of Encounter: 07/23/18 Time of Encounter: 08:50 - Subjective Interval History: Patient is awake and alert. Complaints of lack of sleep last night. He is also not had any bowel movement since coming in the hospital. Reports that his shortness of breath is improving. Denies any fevers or chills overnight. To lerating diet well. No abdominal pain. - Exam Vitals: Temp Pulse Resp BP Pulse Ox 97.8 F 84 18 161/80 95 07/23/18 11:36 07/23/18 11:36 07/23/18 11:52 07/23/18 11:36 07/23/18 11:52 Exam: General: Patient is alert, mild distress, oriented x 3 ENT: Mucous membranes moist Respiratory: Prolonged expiratory phase, bilateral wheezing Cardiovascular: Regular rate and rhythm. s1 and s2 normal No clicks, rubs, gallops, or murmurs. No pedal edema Abdomen: Abdomen is soft, nontender. Bowel sounds are present Musculoskeletal: Spontaneously moving all extremities Skin: warm, dry, intact. Neuro: Alert oriented x 3 normal cranial nerves, no focal deficits, resting tremors present - Assessment and Plan (1) COPD with acute exacerbation Current Visit: Yes Status: Acute Assessment and Plan: Patient continues to have bilateral wheezing. Currently on 2 L nasal cannula. We will continue to wean FiO2 as tolerated. Is RSV positive. We will begin to taper steroids. Continue antibiotics. Continue bronchodilators. (2) Community acquired pneumonia Current Visit: Yes Status: Suspected Assessment and Plan: On azithromycin and ceftriaxone. Blood cultures have been negative. Urine strep and Legionella antigens have been negative. We will transition to oral antibiotics. (3) Cholangiocarcinoma Current Visit: No Status: Acute Assessment and Plan: Follow-up outpatient (4) RSV (acute bronchiolitis due to respiratory syncytial virus) Current Visit: Yes Status: Acute Assessment and Plan: Treating symptomatically. With O2 supplementation and bronchodilators. (5) Diabetes mellitus, type 2 Current Visit: Yes Status: Acute Assessment and Plan: Patient blood sugars have been elevated. His A1c is 7.2%. New Diagnosis of diabetes mellitus type 2. Provided diabetes education. Monitor blood sugars. Sliding scale insulin and long-acting insulin. DVT Prophylaxis: On subcutaneous heparin - Time Spent with Patient Total time spent is greater than 50% in coordination of care (as documented) at patient's floor/unit and/or counseling patient: Internal Medicine: Result - Labs CBC & Chem 7: 07/22/18 09:30 07/22/18 09:30 Consult Discharge Plan - Plan Referrals: Igor Casarez MD [Primary Care Provider] - (2) Community acquired pneumonia Qualifiers: Laterality: right Lung location: lower lobe of lung Qualified Code(s): J18.1 - Lobar pneumonia, unspecified organism (5) Diabetes mellitus, type 2 Qualifiers: Diabetes mellitus detention insulin use: without terminal worker use Diabetes mellitus complication status: with hyperglycemia Qualified Code(s): E11.65 - Type 2 diabetes mellitus with hyperglycemia
--- NOTE | 2018-07-23 18:51 | Oncology Inp Progress Note ---
<Anna Garza L - Last Filed: 07/23/18 18:47> Date of Encounter: 07/23/18 Time of Encounter: 15:00 (1) Cholangiocarcinoma Current Visit: No Status: Acute Assessment and plan: Patient is due for cycle 2, day 8 gemcitabine this week. We will plan to hold this weeks treatment to allow him to recover from his acute illness Keep next week off treatment and will plan to resume treatment as scheduled on August 07 after evaluation first by Dr. Stevens Continue to monitor blood counts and treat supportively as below (2) RSV (acute bronchiolitis due to respiratory syncytial virus) Current Visit: Yes Status: Acute Assessment and plan: Respiratory PCR reveals RSV. Admitted with COPD exacerbation and new developing right lower lobe pneumonia present on CTA. Reports subjective fevers at home, TMAX 100.1 since admission No neutropenia noted on labs currently, CBC mainly unrevealing Continue supportive management COPD exacerbation with IV Solu-Medrol and DuoNeb's. Currently on day 3 of IV azithromycin and ceftriaxone for pneumonia Plan as above was discussed with patient and patients . We will plan to follow up as outpatient with treatment once he recovers. Otherwise, will plan to sign off at this time. Please feel free to consult for any other questions or concerns. Oncology: Subj Interval history: Mr. Louis is resting in bed, his is at bedside. His SOB is about the same, he continues to require oxygen supplementation. He desats in the upper 80's with ambulation to the bathroom. He did have a bowel movement today. No nausea, vomiting, fevers or chills. - Constitutional General appearance: cooperative, no acute distress, no febrile - Head Head exam: Present: atraumatic - ENT ENT exam: Present: mucous membranes moist, normal oropharynx - Respiratory Respiratory exam: Present: decreased breath sounds, wheezes. Absent: respiratory distress - Cardiovascular Cardiovascular exam: Present: RRR, +S1, +S2, tachycardia - GI/Abdominal GI/Abdominal exam: Present: normal bowel sounds, soft. Absent: guarding, tenderness - Extremities Exam Extremities exam: Present: pedal edema. Absent: calf tenderness - Neurological Exam Neurological exam: Present: alert, oriented X3, no focal deficits, strengths equal and symetr throughout - Psychiatric Psychiatric exam: Present: normal affect, normal mood - Skin Skin exam: Present: dry, intact, normal color, warm Oncology: Obj Data - Labs CBC & Chem 7: 07/22/18 09:30 07/22/18 09:30 Consult Discharge Plan - Plan Referrals: Igor Casarez MD [Primary Care Provider] - Inpatient Charges Provider: Dr. Smita Pollard <LatriceClem - Last Filed: 07/24/18 07:18> Date of Encounter: 07/23/18 Oncology: Obj Data - Labs CBC & Chem 7: 07/24/18 04:12 07/24/18 04:12 Inpatient Charges Provider: Dr. Smita Pollard Follow up - Inpatient: [id number] - Attending Attestation I examined this patient and my medical decision-making was reviewed with the Advanced Practice Nurse. I agree with the documented findings, disposition and treatment plan as described except to the extent set forth below. Clinically, he feels bit better today. He is breathing more comfortably. No fever, chill or sign of progressive infection. Exam with diminished breath sounds throughout but otherwise clear to auscultation. We will hold his chemotherapy for this week and next. We will plan for outpatient follow-up as previous scheduled in 2 weeks. We will otherwise sign off.
[2018-07-23] MEDS ORDERED: Melatonin 3 MG TABLET PO SCH (21:00)
[2018-07-23] MEDS: ARIPiprazole 2 MG TABLET PO SCH (21:44)
[2018-07-23] MEDS: traZODone 50 MG TABLET PO SCH (21:45)
[2018-07-23] MEDS: Cefdinir 300 MG CAPSULE PO SCH (21:47)
[2018-07-24] MEDS: Ipratropium/Albuterol Neb 3 ML IH SCH ×2 (04:26→10:42)
[2018-07-24 05:34] LABS: Hematocrit 40.6 % (37.5-50.1); Hemoglobin 13.4 g/dL (12.9-16.9); Mean Corpuscular Hemoglobin 30.4 pg (28.0-33.3); Mean Corpuscular Volume 92.1 fL (83.0-100.0); Mean Platelet Volume 10.4 fL (9.4-12.4); Nucleated Red Blood Cells 0.3 /100 WBC (0); Platelet Count 132 K/mcL (140-400); Red Blood Count 4.41 M/mcL (4.19-5.50); Red Cell Distribution Width 15.7 % (11.5-14.5)
[2018-07-24] MEDS: *HR* Heparin 5,000 UNIT/ML VIAL SQ SCH ×2 (05:51→13:50)
[2018-07-24 06:12] LABS: Lymphocytes # 1.2 K/mcL (0.6-4.6); Monocytes # 0.9 K/mcL (0.0-1.3); Neutrophils # 4.4 K/mcL (1.6-8.9); Platelet Estimate Decreased (Normal); Reactive Lymphocytes Present (Not Present)
[2018-07-24 06:44] LABS: BUN/Creatinine Ratio 30 (6-26); Blood Urea Nitrogen 26 mg/dL (8-23); Calcium 9.3 mg/dL (8.6-10.3); Carbon Dioxide 23 mEq/L (23-29); Chloride 99 mEq/L (98-107); Glucose 256 mg/dL (70-105); Osmolality,Calculated 288 (280-300); Potassium 4.4 mEq/L (3.5-5.1); Sodium 132 mEq/L (136-145); eGFR For Non-African Americans > 60 (> 60)
[2018-07-24] MEDS: Sennosides 8.6 MG TABLET PO SCH (08:25)
[2018-07-24] MEDS: amLODIPine 5 MG TABLET PO SCH (08:26)
[2018-07-24] MEDS: Cefdinir 300 MG CAPSULE PO SCH (08:27)
[2018-07-24] MEDS: Insulin LISPRO 300 UNITS/3 ML VIAL SQ SCH ×2 (08:32→12:17)
[2018-07-24] MEDS: Insulin DETEMIR 100 UNIT/ML X5UNITS SQ SCH (08:43)
[2018-07-24] MEDS ORDERED: Azithromycin 250 MG TABLET PO SCH (09:00)
[2018-07-24] MEDS ORDERED: predniSONE 20 MG TABLET PO SCH (09:00)
[2018-07-24 11:34] VITALS: BP 138/77
--- NOTE | 2018-07-24 12:51 | Discharge Summary ---
- NOTES TO OUTPATIENT PROVIDER Notes to Outpatient Provider: Patient with history of COPD, anemia, coronary artery disease status post PCI and stents, cholangiocarcinoma was hospitalized here with acute shortness of breath and respiratory failure related to COPD exacerbation and possible pneumonia. CT angiogram of the chest showed signs of bronchitis and possible developing pneumonia. His respiratory infection panel was positive for RSV. Patient was treated with antibiotics, steroids, bronchodilators and O2 supplementation. He slowly improved and is now doing much better. He is stable to be discharged from the hospital at this time and will continue to recover at home. He will complete course of antibiotics and steroid taper. He will follow up with his primary care provider for further management of his chronic medical conditions. Patient has been hypoxic and is requiring supplemental oxygen as confirmed by walk test done here. As such he will be prescribed home oxygen at 4 L/m. This is most likely due to his underlying diagnosis of COPD with superimposed bronchiolitis and pneumonia. Orders not resulted at time of discharge: Pending orders 07/21/18 15:43 Culture,Blood [BC] Stat Date of Encounter: 07/24/18 Time of Encounter: 12:48 - Discharge Diagnosis (1) COPD with acute exacerbation Priority: Primary Status: Acute (2) RSV (acute bronchiolitis due to respiratory syncytial virus) Priority: Secondary Status: Acute (3) Community acquired pneumonia Priority: Secondary Status: Suspected Qualifiers: Laterality: right Lung location: lower lobe of lung Qualified Code(s): J18.1 - Lobar pneumonia, unspecified organism (4) Cholangiocarcinoma Priority: Secondary Status: Acute (5) Diabetes mellitus, type 2 Priority: Secondary Status: Chronic 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 Louis is a 77 year old male Discharge discussed with: patient, nurse - Time Spent with Patient Total time spent providing and/or coordinating discharge services: Greater than 30 minutes (40 min) - Discharge Medications Prescriptions: Azithromycin [Zithromax] 500 mg PO DAILY #2 tablet Cefdinir [Omnicef] 300 mg PO BID #6 capsule Oxygen 1 each .ROUTE AD #1 each predniSONE [PredniSONE] 10 mg PO DAILY 8 Days tablet Home Medications: ARIPiprazole [Abilify] 2 mg PO HS 06/11/18 [History] Amlodipine Besylate 5 mg PO DAILY 06/11/18 [History] Omeprazole [PriLOSEC] 20 mg PO DAILY 06/11/18 [History] Ondansetron [Zofran] 8 mg PO Q8HR PRN #90 tablet 06/11/18 [Rx] Prochlorperazine Maleate [Compazine] 10 mg PO Q8HR PRN #90 tablet 06/11/18 [Rx] Ciclopirox/Ure/Camph/Menth/Euc [Ciclodan 8% Kit] 34.6 ml TP AD 06/26/18 [History] Ipratropium/Albuterol Neb [Duoneb] 3 ml IH Q6HR 07/21/18 [History] Trazodone HCl 100 mg PO HS 07/21/18 [History] Azithromycin [Zithromax] 500 mg PO DAILY #2 tablet 07/24/18 [Rx] Cefdinir [Omnicef] 300 mg PO BID #6 capsule 07/24/18 [Rx] Oxygen 1 each .ROUTE AD #1 each 07/24/18 [Rx] predniSONE [PredniSONE] 10 mg PO DAILY 8 Days tablet 07/24/18 [Rx] Allergies/Adverse Reactions: Allergy/AdvReac Type Severity Reaction Status Date / Time Vtjiuvz-Jou-Bta Reductase AdvReac Joint Pain Verified 07/17/18 13:24 Inhibitor [Statins] Tetanus Vaccines and Toxoid AdvReac Rash Verified 07/17/18 13:24 [Tetanus Vaccines & Toxoid] Date of admission: 07/21/18 19:19 Primary care physician: Igor Casarez MD Consults: 07/21/18 20:51 Consult to Nurse Navigator [CONS] Routine Comment: 07/22/18 10:30 Consult to Oncology Hematology [CONS] Routine Consulting Provider: Anna Garza Reason for Consult: Chemotherapy Call Completed: Yes 07/23/18 12:35 Consult to Diabetes Education [CONS] Routine Comment: Reason for Consult: new diabetes diagnosis Discharging clinician: Xuan Hammond Anticipated date of discharge: 07/24/18 - Constitutional Vitals: Temp Pulse Resp BP Pulse Ox 97.8 F 88 16 138/77 94 07/24/18 11:20 07/24/18 11:20 07/24/18 11:20 07/24/18 11:20 07/24/18 11:20 General appearance: Present: A&O X 3, pleasant, answers questions appropriately Exam: . - Neck Neck exam general surgery: Present: supple, trachea midline. Absent: lymphadenopathy - Respiratory Respiratory exam: Present: prolonged expiratory phase, wheezes. Absent: accessory muscle use, rales, rhonchi - Cardiovascular Cardiovascular exam: Present: RRR, +S1, +S2. Absent: diastolic murmur, gallop, rubs, systolic murmur - GI/Abdominal GI/Abdominal exam: Present: normal bowel sounds, soft, no peritoneal signs. Absent: distended, tenderness - Patient Status Disposition: Home, Self-Care Condition: Good Functional capacity at discharge: uses cane/walker Overall status at discharge: patient is progressing back to baseline - Discharge Instructions Instructions: Chronic Obstructive Pulmonary Disease (DC), Diabetes Mellitus Type 2 in Adults (DC) Follow Up With: Igor Casarez MD [Primary Care Provider] - (in 1-2 weeks) - Diet and Activity Activity: increase activity as tolerated Diet: diabetic diet, low fat, low cholesterol, low salt diet
--- NOTE | 2018-07-24 14:09 | Physician Discharge Referral ---
Home Health/Hosp Referral Info Transfer to: Home Health Provider in Charge Post Discharge: PCP - Diagnosis (1) COPD with acute exacerbation Priority: Primary Status: Acute (2) RSV (acute bronchiolitis due to respiratory syncytial virus) Priority: Secondary Status: Acute (3) Community acquired pneumonia Priority: Secondary Status: Suspected (4) Cholangiocarcinoma Priority: Secondary Status: Acute (5) Diabetes mellitus, type 2 Priority: Secondary Status: Chronic - Respiratory Orders Oxygen / L per min (4) Smoking Cessation: Smoking cessation has been advised. For more information, call the [place] [employer] Quit Line at 8-198-XQYQ-NOW. - Diet/Nutrition Diet/Nutrition Orders: Cardiac - Activity Activity Orders: Walker - Services Needed Following services are medically necessary services: Nursing, Physical Therapy, Occupational Therapy - Transfer Medications Prescriptions: Azithromycin [Zithromax] 500 mg PO DAILY #2 tablet Cefdinir [Omnicef] 300 mg PO BID #6 capsule Oxygen 1 each .ROUTE AD #1 each predniSONE [PredniSONE] 10 mg PO DAILY 8 Days tablet Home Medications: ARIPiprazole [Abilify] 2 mg PO HS 06/11/18 [History] Amlodipine Besylate 5 mg PO DAILY 06/11/18 [History] Omeprazole [PriLOSEC] 20 mg PO DAILY 06/11/18 [History] Ondansetron [Zofran] 8 mg PO Q8HR PRN #90 tablet 06/11/18 [Rx] Prochlorperazine Maleate [Compazine] 10 mg PO Q8HR PRN #90 tablet 06/11/18 [Rx] Ciclopirox/Ure/Camph/Menth/Euc [Ciclodan 8% Kit] 34.6 ml TP AD 06/26/18 [History] Ipratropium/Albuterol Neb [Duoneb] 3 ml IH Q6HR 07/21/18 [History] Trazodone HCl 100 mg PO HS 07/21/18 [History] Azithromycin [Zithromax] 500 mg PO DAILY #2 tablet 07/24/18 [Rx] Cefdinir [Omnicef] 300 mg PO BID #6 capsule 07/24/18 [Rx] Oxygen 1 each .ROUTE AD #1 each 07/24/18 [Rx] predniSONE [PredniSONE] 10 mg PO DAILY 8 Days tablet 07/24/18 [Rx] Allergies/Adverse Reactions: Allergy/AdvReac Type Severity Reaction Status Date / Time Fwivqag-Smd-Cgh Reductase AdvReac Joint Pain Verified 07/17/18 13:24 Inhibitor [Statins] Tetanus Vaccines and Toxoid AdvReac Rash Verified 07/17/18 13:24 [Tetanus Vaccines & Toxoid] Certification: Further, I certify that my clinical findings support that this patient is homebound (i.e. absences from home require considerable and taxing effort and are for medical reasons or [employer] services or infrequently or short duration when for other reasons) because: Homebound Reason: Patient requires assistance of a person or device to safely leave home Attestation: My signature below is to certify that this patient is under my care and that I, or nurse practitioner, or a physician's operating room assistant working with me, has a [id number] encounter with this patient.
== END 2018-07-24 16:05 | disposition home health service (06) ==
LOC: 3ANU 14:22 → EMEROOARM 14:22 → SUATTDRO 19:19 → 3ANU 20:38
PROVIDERS: ADMIT Internal Medicine; ATTEND Internal Medicine

== ENCOUNTER 2018-09-18 14:35 | Inpatient (IN) ==
--- NOTE | 2018-09-18 15:22 | Emergency Department Note ---
Disposition Clinical Impression: Chest wall pain, Hospital acquired PNA, Cholangiocarcinoma, Pulmonary nodule, Pneumonia, Liver cancer Disposition: Admitted As Inpatient Condition: Fair Referrals: Igor Casarez MD [Primary Care Provider] - Forms: ED Satisfaction Letter Time of Disposition: 19:16 General Adult HPI - General Chief complaint: ED Shortness of Breath/Dyspnea Stated complaint: [facility] Time Seen by Provider: 09/18/18 15:08 Source: patient, family Limitations: no limitations Nursing Notes Reviewed: Yes Vital Signs Reviewed: Yes - History of Present Illness HPI Narrative: 77-year-old male who presents emergency Department with complaints of bilateral rib pain. The patient states this has been ongoing for approximately 3 weeks. He states he was seen at [facility] today and was to have his chemotherapy infusion but they stated he needed to be evaluated prior to this due to his ongoing symptoms. He otherwise feels significant short of breath and notes that his bilateral rib pain is worsened by certain movements, coughing or sitting up. He states it is better when he lays down flat. He otherwise denies any fever, chills, nausea, vomiting, diarrhea, abdominal pain, back pain Pain Scale: 8 - Related Data Home Medications Medication Instructions Recorded Confirmed ARIPiprazole [Abilify] 2 mg PO HS 06/11/18 09/18/18 Amlodipine Besylate 5 mg PO DAILY 06/11/18 09/18/18 Omeprazole [PriLOSEC] 20 mg PO DAILY 06/11/18 09/18/18 Ciclopirox/Ure/Camph/Menth/Euc 34.6 ml TP AD 06/26/18 09/18/18 [Ciclodan 8% Kit] Ipratropium/Albuterol Neb [Duoneb] 3 ml IH Q6HR 07/21/18 09/18/18 Trazodone HCl 100 mg PO HS 07/21/18 09/18/18 Oxygen 1 each .ROUTE AD 08/07/18 09/18/18 Albuterol Sulfate [Ventolin Hfa] 18 gm IH DAILY 09/18/18 09/18/18 Budesonide/Formoterol 160/4.5 1 puff IH BIDR 09/18/18 09/18/18 [Symbicort 160/4.5] metFORMIN [Glucophage] 500 mg PO BIDWM 09/18/18 09/18/18 Previous Rx's Medication Instructions Recorded Ondansetron [Zofran] 8 mg PO Q8HR PRN #90 tablet 06/11/18 Prochlorperazine Maleate 10 mg PO Q8HR PRN #90 tablet 06/11/18 [Compazine] Cefdinir [Omnicef] 300 mg PO BID #6 capsule 07/24/18 Allergies Allergy/AdvReac Type Severity Reaction Status Date / Time Gqtwypz-Awa-Hzm Reductase AdvReac Joint Pain Verified 09/18/18 13:27 Inhibitor [Statins] Tetanus Vaccines and Toxoid AdvReac Rash Verified 09/18/18 13:27 [Tetanus Vaccines & Toxoid] All systems ED: reviewed and negative except as stated. Review of Systems: As Per HPI Past Medical History - Past Medical History Medical history: Reports: arthritis, cancer, COPD, coronary artery disease, RA, other Surgical history: Reports: angioplasty/stent, appendectomy Psychiatric history: Reports: no psych history - Social History Smoking Status: Former smoker Smokeless Tobacco Status: No Alcohol use: Reports: none Drug use: Reports: none Physical Exam General: Conversant. No apparent distress. Follow commands. Appears stated age. Neck: No JVD. Trachea midline. Neck supple. Eyes: PERRL. No scleral icterus. HENT: Normocephalic and atraumatic. Moist mucus membranes. Cardiovascular: Regular rate and rhythm. Normal S1 and S2. No murmurs appreciated. Normal capillary refill. Extremities well perfused with 2+ distal pulses bilaterally. No edema. No chest wall tenderness. No rash. Pulmonary: Slighly decreased breath sounds, bilateral bases. No wheezes. No rales. Not in respiratory distress. Speaks in full sentences. Abdomen: Soft, and tontender. No bruits or masses. No guarding. No fluid wave. Distended Neuro: Alert and oriented x3. No slurred speech. No focal deficits noted. Skin: No rashes noted on visualized skin. Musculoskeletal: No bony abnormalities visualized. Moves all extremities. Psych: Normal mood. Pleasant. Makes appropriate eye contact. - General Limitations: no limitations General appearance: alert, in no apparent distress Course Vital Signs Temperature 97.4 F L 09/18/18 14:59 Pulse Rate 74 09/18/18 14:59 Respiratory Rate 22 09/18/18 14:59 Blood Pressure 151/71 09/18/18 14:59 O2 Sat by Pulse Oximetry 92 09/18/18 14:59 Temperature 97.4 F L 09/18/18 15:13 Pulse Rate 74 09/18/18 15:13 Respiratory Rate 22 09/18/18 15:13 Blood Pressure 151/71 09/18/18 15:13 O2 Sat by Pulse Oximetry 92 09/18/18 15:13 Oxygen Delivery Oxygen Delivery Room Air Medical Decision Making - MDM Narrative Medical decision making narrative: 77 year old male who presents the emergency department with complaints of chest wall pain. He states he has had been progressively more short of breath and was sent from his oncology department. Initial workup including CT angios chest, CT abdomen pelvis with IV contrast as well as CBC, BMP and LFTs were obtained. CT angiogram shows no evidence of acute pulmonary embolism but does show bibasilar consolidation concerning for pneumonia. CT abdomen pelvis shows no evidence of ascites. Otherwise laboratory evaluation did appears approximately the patient's baseline. Given the patient's immunosuppression and shortness of breath will treat the patient has healthcare acquired pneumonia with vancomycin, Zosyn and azithromycin. The patient's vital signs are stable here in the emergency department. Discussed case with on-call hospitalist Dr. Hammond who agrees with plan for admission and accepts the patient to the inpatient service. Patient agrees with and understands course of treatment plan including plan for admission. All questions answered. - Medical Records Medical records reviewed: Yes I reviewed the patient's medical records. - Lab Data Lab results reviewed: Yes I reviewed the patient's lab results. Result diagrams: 09/18/18 15:26 09/18/18 15:26 Lab Results 09/18/18 09/18/18 09/18/18 Range/Units 15:26 15:26 15:56 WBC 5.2 (4.3-11.1) K/mcL RBC 4.15 L (4.19-5.50) M/mcL Hgb 13.0 (12.9-16.9) g/dL Hct 37.7 (37.5-50.1) % MCV 90.8 (83.0-100.0) fL MCH 31.3 (28.0-33.3) pg MCHC 34.5 (31.6-35.5) g/dL RDW 15.9 H (11.5-14.5) % Plt Count 112 L (140-400) K/mcL MPV 10.0 (9.4-12.4) fL Immature Gran % 6.3 H (0-4) % Seg Neutrophils % 31.1 % Lymphocytes % 35.7 % Monocytes % 7.9 % Eosinophils % 18.0 % Basophils % 1.0 % Neutrophils # 1.6 (1.6-8.9) K/mcL Lymphocytes # 1.9 (0.6-4.6) K/mcL Monocytes # 0.4 (0.0-1.3) K/mcL Eosinophils # 0.9 H (0.0-0.6) K/mcL Basophils # 0.1 (0.0-0.2) K/mcL Nucleated RBCs/100 WBC 0.4 H (0) /100 WBC Reactive Lymphocytes Present A (Not Present) Sodium 134 L (136-145) mEq/L Potassium 4.3 (3.5-5.1) mEq/L Chloride 101 (98-107) mEq/L Carbon Dioxide 23 (23-29) mEq/L BUN 20 (8-23) mg/dL Creatinine 1.09 (0.70-1.30) mg/dL Est GFR ( Amer) > 60 (> 60) Est GFR (Non-Af Amer) > 60 (> 60) BUN/Creatinine Ratio 18 (6-26) Glucose 141 H (70-105) mg/dL Calculated Osmolality 283 (280-300) Calcium 10.1 (8.6-10.3) mg/dL Magnesium 1.9 (1.6-2.6) mg/dL Total Bilirubin 0.6 (0.3-1.0) mg/dL Direct Bilirubin 0.2 (0.0-0.2) mg/dL Indirect Bilirubin 0.4 (0.0-1.2) mg/dL AST 48 H (13-39) Units/L ALT 88 H (7-52) Units/L Alkaline Phosphatase 79 (34-104) Units/L Serum Total Protein 6.2 L (6.4-8.9) g/dL Albumin 4.2 (3.5-5.7) g/dL Globulin 2.0 L (2.4-3.5) g/dL Albumin/Globulin Ratio 2.1 (1.1-2.2) Lipase 32 (11-82) Units/L - Radiology Data Radiology results reviewed: Yes I reviewed the patient's radiology results. Chest CTA 09/18/18 15:26 IMPRESSION: No evidence pulmonary embolism. Bibasilar mostly dependent airspace disease, atelectasis or pneumonia. D/ / Opal Slater Cha, MD / Opal Slater Cha, MD Interpreting Provider: Opal Slater Cha, MD Abdomen/Pelvis CT 09/18/18 16:58 IMPRESSION: Previous partial hepatectomy is again noted. There is progression of multiple hepatic nodules in the interval. New 8 mm nodule in the right middle lobe, suspicious for metastasis.. New right para iliac lymph node, suspicious for metastasis. Stable renal cysts and indeterminate hypodensities. No ascites is identified. D/ / Mukund Hernandez MD / Mukund Hernandez MD Interpreting Provider: Mukund Hernandez MD - EKG Data EKG #1 EKG attestation: Yes I reviewed and interpreted this EKG. EKG results narrative: Normal sinus rhythm rate of 74. Left axis deviation. No evidence of acute ST elevation. No prior available for comparison. Attestation Statement - Attestation Attestation: I, Joel Barrera DO, examined this patient [id number] and my medical decision-making was reviewed with Dr. Prisca Reina, Resident Physician. I agree with the documented findings, disposition and treatment plan as described except to the extent set forth below. Please see my progress notes for details.
[2018-09-18] MEDS ORDERED: Isovue-370 500 ML BOTTLE IVP ONE (15:26)
[2018-09-18 16:08] LABS: Basophils # 0.1 K/mcL (0.0-0.2); Eosinophils # 0.9 K/mcL (0.0-0.6); Hematocrit 37.7 % (37.5-50.1); Immature Granulocytes % 6.3 % (0-4); Lymphocytes # 1.9 K/mcL (0.6-4.6); Lymphocytes % 35.7 %; Mean Corpuscular HGB Conc 34.5 g/dL (31.6-35.5); Mean Corpuscular Hemoglobin 31.3 pg (28.0-33.3); Mean Corpuscular Volume 90.8 fL (83.0-100.0); Monocytes # 0.4 K/mcL (0.0-1.3); Monocytes % 7.9 %; Neutrophils # 1.6 K/mcL (1.6-8.9); Nucleated Red Blood Cells 0.4 /100 WBC (0); Platelet Count 112 K/mcL (140-400); Red Blood Count 4.15 M/mcL (4.19-5.50); Red Cell Distribution Width 15.9 % (11.5-14.5); Segmented Neutrophils % 31.1 %
[2018-09-18 16:23] LABS: Reactive Lymphocytes Present (Not Present)
[2018-09-18 16:26] LABS: BUN/Creatinine Ratio 18 (6-26); Blood Urea Nitrogen 20 mg/dL (8-23); Calcium 10.1 mg/dL (8.6-10.3); Carbon Dioxide 23 mEq/L (23-29); Chloride 101 mEq/L (98-107); Glucose 141 mg/dL (70-105); Osmolality,Calculated 283 (280-300); Potassium 4.3 mEq/L (3.5-5.1); Sodium 134 mEq/L (136-145); eGFR For Non-African Americans > 60 (> 60)
[2018-09-18 17:31] LABS: Albumin 4.2 g/dL (3.5-5.7); Albumin/Globulin Ratio 2.1 (1.1-2.2); Bilirubin,Direct 0.2 mg/dL (0.0-0.2); Bilirubin,Indirect 0.4 mg/dL (0.0-1.2); Bilirubin,Total 0.6 mg/dL (0.3-1.0); Magnesium 1.9 mg/dL (1.6-2.6); Total Protein 6.2 g/dL (6.4-8.9)
[2018-09-18] MEDS ORDERED: Piperacillin/Tazobactam 3.375 GM in Water for inj. (sterile) 20 ML 20 ML IVP STA (18:16)
[2018-09-18] MEDS ORDERED: Azithromycin 500 MG in D5% in Water 250 ML IVPB STA (18:16)
--- NOTE | 2018-09-18 18:52 | Emergency Department Note ---
Disposition Clinical Impression: Pneumonia, Liver cancer, Pulmonary nodule Disposition: Admitted As Inpatient Condition: Fair Forms: ED Satisfaction Letter Time of Disposition: 18:53 General Adult HPI - General Chief complaint: ED Shortness of Breath/Dyspnea Stated complaint: [facility] from [facility] Time Seen by Provider: 09/18/18 15:08 Source: patient, family Limitations: no limitations - History of Present Illness Pain Scale: 8 - Related Data Home Medications Medication Instructions Recorded Confirmed ARIPiprazole [Abilify] 2 mg PO HS 06/11/18 09/18/18 Amlodipine Besylate 5 mg PO DAILY 06/11/18 09/18/18 Omeprazole [PriLOSEC] 20 mg PO DAILY 06/11/18 09/18/18 Ciclopirox/Ure/Camph/Menth/Euc 34.6 ml TP AD 06/26/18 09/18/18 [Ciclodan 8% Kit] Ipratropium/Albuterol Neb [Duoneb] 3 ml IH Q6HR 07/21/18 09/18/18 Trazodone HCl 100 mg PO HS 07/21/18 09/18/18 Oxygen 1 each .ROUTE AD 08/07/18 09/18/18 Albuterol Sulfate [Ventolin Hfa] 18 gm IH DAILY 09/18/18 09/18/18 Budesonide/Formoterol 160/4.5 1 puff IH BIDR 09/18/18 09/18/18 [Symbicort 160/4.5] metFORMIN [Glucophage] 500 mg PO BIDWM 09/18/18 09/18/18 Previous Rx's Medication Instructions Recorded Ondansetron [Zofran] 8 mg PO Q8HR PRN #90 tablet 06/11/18 Prochlorperazine Maleate 10 mg PO Q8HR PRN #90 tablet 06/11/18 [Compazine] Cefdinir [Omnicef] 300 mg PO BID #6 capsule 07/24/18 Allergies Allergy/AdvReac Type Severity Reaction Status Date / Time Jpnzjnp-Ouw-Khe Reductase AdvReac Joint Pain Verified 09/18/18 13:27 Inhibitor [Statins] Tetanus Vaccines and Toxoid AdvReac Rash Verified 09/18/18 13:27 [Tetanus Vaccines & Toxoid] Past Medical History - Past Medical History Medical history: Reports: arthritis, cancer, COPD, coronary artery disease, RA, other Surgical history: Reports: angioplasty/stent, appendectomy Psychiatric history: Reports: no psych history - Social History Smoking Status: Former smoker Smokeless Tobacco Status: No Alcohol use: Reports: none Drug use: Reports: none Physical Exam - General Limitations: no limitations General appearance: alert, in no apparent distress Course Vital Signs Temperature 97.4 F L 09/18/18 14:59 Pulse Rate 74 09/18/18 14:59 Respiratory Rate 22 09/18/18 14:59 Blood Pressure 151/71 09/18/18 14:59 O2 Sat by Pulse Oximetry 92 09/18/18 14:59 Temperature 97.4 F L 09/18/18 15:13 Pulse Rate 74 09/18/18 15:13 Respiratory Rate 22 09/18/18 15:13 Blood Pressure 151/71 09/18/18 15:13 O2 Sat by Pulse Oximetry 92 09/18/18 15:13 Oxygen Delivery Oxygen Delivery Room Air Medical Decision Making - Lab Data Result diagrams: 09/18/18 15:26 09/18/18 15:26 Lab Results 09/18/18 09/18/18 09/18/18 Range/Units 15:26 15:26 15:56 WBC 5.2 (4.3-11.1) K/mcL RBC 4.15 L (4.19-5.50) M/mcL Hgb 13.0 (12.9-16.9) g/dL Hct 37.7 (37.5-50.1) % MCV 90.8 (83.0-100.0) fL MCH 31.3 (28.0-33.3) pg MCHC 34.5 (31.6-35.5) g/dL RDW 15.9 H (11.5-14.5) % Plt Count 112 L (140-400) K/mcL MPV 10.0 (9.4-12.4) fL Immature Gran % 6.3 H (0-4) % Seg Neutrophils % 31.1 % Lymphocytes % 35.7 % Monocytes % 7.9 % Eosinophils % 18.0 % Basophils % 1.0 % Neutrophils # 1.6 (1.6-8.9) K/mcL Lymphocytes # 1.9 (0.6-4.6) K/mcL Monocytes # 0.4 (0.0-1.3) K/mcL Eosinophils # 0.9 H (0.0-0.6) K/mcL Basophils # 0.1 (0.0-0.2) K/mcL Nucleated RBCs/100 WBC 0.4 H (0) /100 WBC Reactive Lymphocytes Present A (Not Present) Sodium 134 L (136-145) mEq/L Potassium 4.3 (3.5-5.1) mEq/L Chloride 101 (98-107) mEq/L Carbon Dioxide 23 (23-29) mEq/L BUN 20 (8-23) mg/dL Creatinine 1.09 (0.70-1.30) mg/dL Est GFR ( Amer) > 60 (> 60) Est GFR (Non-Af Amer) > 60 (> 60) BUN/Creatinine Ratio 18 (6-26) Glucose 141 H (70-105) mg/dL Calculated Osmolality 283 (280-300) Calcium 10.1 (8.6-10.3) mg/dL Magnesium 1.9 (1.6-2.6) mg/dL Total Bilirubin 0.6 (0.3-1.0) mg/dL Direct Bilirubin 0.2 (0.0-0.2) mg/dL Indirect Bilirubin 0.4 (0.0-1.2) mg/dL AST 48 H (13-39) Units/L ALT 88 H (7-52) Units/L Alkaline Phosphatase 79 (34-104) Units/L Serum Total Protein 6.2 L (6.4-8.9) g/dL Albumin 4.2 (3.5-5.7) g/dL Globulin 2.0 L (2.4-3.5) g/dL Albumin/Globulin Ratio 2.1 (1.1-2.2) Lipase 32 (11-82) Units/L Attestation Statement - Attestation Attestation: I, Joel Barrera DO, examined this patient [id number] and my medical decision-making was reviewed with Dr. Prisca Reina, Resident Physician. I agree with the documented findings, disposition and treatment plan as described except to the extent set forth below. Please see my progress notes for details. 77-year-old male presents emergency room at the request of his oncologist for evaluation of bilateral rib pain and abdominal discomfort and pressure. Patient has known liver cancer for which he is being treated actively at this time. They were concerned because the symptoms of pain this morning and recommended he come to the emergency room for evaluation. Patient was describing shortness of breath at their facility. Patient is denying chest pain fevers chills nausea vomiting or diarrhea. No headache or vision change. During denies burning with urination or other symptoms. Nonspecific complaining of abdominal pain other issues. On physical exam gentleman is resting comfortably in the bed. All the symptoms are worse when he sitting upright. Abdomen is soft slightly distended but a positive fluid wave is noted. No pulsatile masses or lesions are noted this time. Lungs are clear to auscultation bilaterally heart is regular. Cavities. Be normal with no specific signs of rash trauma or lesion. Patient has no signs of hypotension or concern for decompensation. Detailed workup will be completed with chest x-ray and CT the abdomen along with labs looking for progression of symptoms. Concern is noted for metastases to the bone or possible pneumonia secondary to the complaint of shortness of breath and fluid wave in the abdomen. These are all new findings with the patient this time. Patient is otherwise clinical stable with could have potentially life- threatening issues. Will monitor closely and disposition will be determined. See detailed documentation of the physical exam, medical intervention, medical decision-making and disposition in the resident physician's note. No critical care provider the patient's treatment course at this time. 1825 CT imaging the abdomen is concerning for metastases to the lungs. Pleural effusion versus pneumonia was noted. Labs are reviewed and no acute a bnormalities at this time outside of slight dehydration. Patient was started on antibiotics here in the emergency department covering for healthcare acquired pneumonia secondary to his immunosuppression. The hospitalist Dr. Hammond reviewed the case. Patient does not show any acute signs of sepsis or septic shock. Patient is otherwise clinically stable with concerning findings with the metastases and pneumonia. No other recommendations were noted from the hospitalist during the admission process. Patient's family was informed as well as the patient himself. Patient will be admitted for observation. We will monitor here in the emergency Department of the admission process is completed. CT angiography of the chest does not show any acute signs of pulmonary emboli but nodules are noted. CT scan of the abdomen is also concerning for metastases.
[2018-09-18] MEDS ORDERED: Naloxone 0.4 MG/ML INJ IVP PRN (22:47)
[2018-09-18] MEDS ORDERED: Dextrose Gel 15 GM/37.5 ML TUBE PO PRN ×2 (22:47)
[2018-09-18] MEDS ORDERED: *HR* Dextrose 50 % in Water (Syg) 50 ML SYRINGE IVP PRN (22:47)
[2018-09-18] MEDS ORDERED: D5% in Water 1,000 ML IVC PRN (22:47)
[2018-09-18] MEDS ORDERED: Albuterol 2.5 MG/3 ML NEBULIZER IH PRN (22:47)
[2018-09-18] MEDS ORDERED: Acetaminophen 325 MG TABLET PO PRN (22:47)
[2018-09-18] MEDS ORDERED: Dextrose 4 GM Chewable Tablets PO PRN ×2 (22:47)
[2018-09-18] MEDS ORDERED: traMADol 50 MG TABLET PO PRN (22:47)
[2018-09-18] MEDS ORDERED: 0.9 % Sodium Chloride 1,000 ML IVC SCH (23:00)
[2018-09-18] MEDS ORDERED: Levofloxacin 500 MG/100 ML 500 MG/100 ML BAG IVPB SCH (23:00)
[2018-09-18] MEDS ORDERED: Ondansetron 4 MG/2 ML VIAL IVP PRN (23:06)
[2018-09-18] MEDS: *HR* Heparin 5,000 UNIT/ML VIAL SQ SCH (23:38)
[2018-09-18] MEDS ORDERED: traZODone 50 MG TABLET PO SCH (23:45)
[2018-09-18] MEDS ORDERED: ARIPiprazole 2 MG TABLET PO SCH (23:45)
[2018-09-19 01:16] LABS: Influenza A PCR Negative (Negative); Influenza B PCR Negative (Negative); Resp. Syncytial Virus PCR Negative (Negative)
--- NOTE | 2018-09-19 01:44 | Internal Med History&Physical ---
Date of Encounter: 09/19/18 Time of Encounter: 21:10 Internal Medicine - H&P: HPI Chief complaint: SOB; cough; rib pain Admitted From: Emergency Dept Plans for Post Hospital Care: Home History of present illness: Mr. Louis is a 77 year old male who presents with a 2 to 3 -week history of right-sided rib pain, cough, shortness of breath, and subjective fevers. 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 However, he informed his oncologist of the symptoms he has been having. He was therefore sent to the ER for further evaluation and workup. He was found to have evidence of pneumonia on imaging and clinical exam. He was therefore admitted to hospitalist service. Upon my assessment of the patient, he and his confirmed the above history. He has had some vague, nonproductive cough. He has had shortness of breath, subjective fevers, and pleuritic type chest pain, especially with coughing. He has had some nausea but no vomiting or diarrhea. He denies any hemoptysis. He has had ill contacts. He has had recurrent bouts of pneumonia over the last few months according to his . He was admitted and treated for RSV bronchiolitis in July of this year. Past Med Surg Social Fam HX - Past Medical History Attestation: Yes The following information was validated with the patient. Source: patient, old records reviewed, obtained from family Medical history: arthritis, cancer, COPD, coronary artery disease, RA Additional medical history: Liver CA Psychiatric history: no psych history - Past Surgical History Surgical History: angioplasty/stent, appendectomy Additional surgical history: 2 stents 2009 - Social History Smoking Status: Former smoker Smokeless Tobacco Status: No Alcohol use: none Drug use: none Current living situation: Home, With Family Activity Level: Independent ambulation Recent Out of Country Travel Within the Last 8 Weeks: No - Family History Sister Hx Family Cancer: Yes Internal Medicine - H&P: Meds ARIPiprazole [Abilify] 2 mg PO HS 06/11/18 [History] Omeprazole [PriLOSEC] 20 mg PO DAILY 06/11/18 [History] Prochlorperazine Maleate [Compazine] 10 mg PO Q8HR PRN #90 tablet 06/11/18 [Rx] Ipratropium/Albuterol Neb [Duoneb] 3 ml IH TID 01/07/19 [History] Trazodone HCl 100 mg PO HS 07/21/18 [History] Albuterol Sulfate [Ventolin Hfa] 2 puff IH Q6H PRN 09/18/18 [History] Amlodipine Besylate 5 mg PO DAILY 09/18/18 [History] Budesonide/Formoterol 160/4.5 [Symbicort 160/4.5] 2 puff IH BIDR 09/18/18 [History] Ondansetron HCl 8 mg PO Q8H PRN 09/18/18 [History] metFORMIN [Glucophage] 1,000 mg PO BIDWM 09/18/18 [History] Allergy/AdvReac Type Severity Reaction Status Date / Time Oozqsdn-Pyk-Bnj Reductase AdvReac Joint Pain Verified 09/18/18 13:27 Inhibitor [Statins] Tetanus Vaccines and Toxoid AdvReac Rash Verified 09/18/18 13:27 [Tetanus Vaccines & Toxoid] - Constitutional Constitutional: fever(s), weakness, no chills, no fatigue, no night sweats - EENT Eyes: no blurry vision, no change in vision Ears: no ear pain, no tinnitus Nose, mouth and throat: no nasal congestion, no sinus pressure, no sore throat - Cardiovascular Cardiovascular ROS IM: chest pain (right sided ribs), dyspnea, no orthopnea, no paroxysmal nocturnal dyspnea, no syncope - Respiratory Respiratory: cough, dyspnea, pain with cough, no hemoptysis, no chest congestion, no excessive phlegm production, no change in phlegm color - Gastrointestinal Gastrointestinal: nausea, no abdominal pain, no diarrhea, no hematemesis, no hematochezia, no melena, no vomiting - Genitourinary Genitourinary ROS male: no dysuria, no flank pain, no hematuria - Musculoskeletal Musculoskeletal ROS IM: no arthralgias, no back pain, no myalgias - Integumentary Integumentary IM: no rash, no jaundice - Neurological Neurological ROS: no disequilibrium, no dizziness, no focal weakness, no frequent falls, no headache(s) - Psychiatric Psychiatric: no anxiety, no depression - Endocrine Endocrine IM: no cold intolerance, no heat intolerance, no polydipsia, no polyuria - Allergic/Immunologic Allergic/Immunologic: no wheezing, no GI upset with certain foods - Constitutional Vitals: Temp Pulse Resp BP Pulse Ox 98.2 F 84 14 134/77 93 09/18/18 23:49 09/18/18 23:49 09/18/18 23:49 09/18/18 23:49 09/18/18 23:49 General appearance: Present: cooperative, A&O X 3, pleasant, answers questions appropriately Exam: see below - Head Head exam: Present: atraumatic, normal inspection - Eye Eye exam: Present: EOMI, PERRL. Absent: scleral icterus Pupils: Present: normal accommodation - ENT ENT exam: Present: mucous membranes dry, normal exam, normal oropharynx - Neck Neck exam general surgery: Present: full ROM, supple, trachea midline. Absent: tenderness, nuchal rigidity, thyromegaly - Respiratory Respiratory exam: Present: chest wall tenderness (right lower ribs), rales (right > left base), rhonchi. Absent: CTAB, wheezes - Cardiovascular Cardiovascular exam: Present: distant heart sounds, RRR, +S1, +S2. Absent: diastolic murmur, systolic murmur - GI/Abdominal GI/Abdominal exam: Present: normal bowel sounds, soft. Absent: guarding, hepatomegaly, rebound, splenomegaly, tenderness - Extremities Exam Extremities exam: Present: full ROM, normal capillary refill, warm, radial pulses palpable and symmetrical. Absent: calf tenderness, pedal edema, tenderness - Back Exam Back exam: Present: full ROM. Absent: CVA tenderness (L), CVA tenderness (R) - Neurological Exam Neurological exam: Present: alert, CN II-XII intact, oriented X3, no focal deficits, strengths equal and symetr throughout - Psychiatric Psychiatric exam: Present: normal affect, normal mood - Skin Skin exam: Present: dry, intact, warm Internal Med - H&P Results - Labs CBC & Chem 7: 09/18/18 15:26 09/18/18 15:26 Labs: Short CBC 09/18/18 Range/Units 15:26 WBC 5.2 (4.3-11.1) K/mcL Hgb 13.0 (12.9-16.9) g/dL Hct 37.7 (37.5-50.1) % Plt Count 112 L (140-400) K/mcL Neutrophils # 1.6 (1.6-8.9) K/mcL BMP 09/18/18 15:26 Sodium 134 L Potassium 4.3 Chloride 101 Carbon Dioxide 23 BUN 20 Creatinine 1.09 Glucose 141 H Calcium 10.1 Liver Function 09/18/18 Range/Units 15:56 Total Bilirubin 0.6 (0.3-1.0) mg/dL Direct Bilirubin 0.2 (0.0-0.2) mg/dL AST 48 H (13-39) Units/L ALT 88 H (7-52) Units/L Alkaline Phosphatase 79 (34-104) Units/L Albumin 4.2 (3.5-5.7) g/dL - Impressions ITS Impressions Chest CTA 09/18/18 15:26 IMPRESSION: No evidence pulmonary embolism. Bibasilar mostly dependent airspace disease, atelectasis or pneumonia. D/ / Opal Slater Cha, MD / Opal Slater Cha, MD Interpreting Provider: Opal Slater Cha, MD Abdomen/Pelvis CT 09/18/18 16:58 IMPRESSION: Previous partial hepatectomy is again noted. There is progression of multiple hepatic nodules in the interval. New 8 mm nodule in the right middle lobe, suspicious for metastasis.. New right para iliac lymph node, suspicious for metastasis. Stable renal cysts and indeterminate hypodensities. No ascites is identified. D/ / Mukund Hernandez MD / Mukund Hernandez MD Interpreting Provider: Mukund Hernandez MD - Diagnostic Studies CT scan - chest Status: image reviewed by me (bibasilar infiltrates) - Assessment and Plan (1) Hospital acquired PNA Current Visit: Yes Status: Acute Assessment and plan: 1. Will order sputum culture and gram stain. 2. Blood cultures obtained in ER. 3. Will order influenza and RSV testing. 4. Oxygen and aerosols as needed for support. (2) Cholangiocarcinoma Current Visit: Yes Status: Chronic Assessment and plan: 1. Outpatient follow up with HEM/ONC. 2. Patient and report that his chemotherapy is palliative. (3) Type 2 diabetes mellitus Current Visit: Yes Status: Chronic Assessment and plan: 1. Hold Metformin. 2. Will order SSI and monitor glucose. 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 Heparin SQ.
[2018-09-19] MEDS: Ipratropium/Albuterol Neb 3 ML IH SCH ×2 (04:35→09:45)
[2018-09-19 05:19] LABS: Basophils # 0.1 K/mcL (0.0-0.2); Basophils % 1.2 %; Eosinophils # 1.1 K/mcL (0.0-0.6); Eosinophils % 17.5 %; Hematocrit 37.2 % (37.5-50.1); Hemoglobin 12.7 g/dL (12.9-16.9); Immature Granulocytes % 5.1 % (0-4); Lymphocytes # 1.6 K/mcL (0.6-4.6); Mean Corpuscular HGB Conc 34.1 g/dL (31.6-35.5); Mean Corpuscular Hemoglobin 31.4 pg (28.0-33.3); Mean Corpuscular Volume 91.9 fL (83.0-100.0); Mean Platelet Volume 10.5 fL (9.4-12.4); Monocytes # 0.5 K/mcL (0.0-1.3); Monocytes % 7.9 %; Neutrophils # 2.6 K/mcL (1.6-8.9); Platelet Count 100 K/mcL (140-400); Red Blood Count 4.05 M/mcL (4.19-5.50); Red Cell Distribution Width 15.9 % (11.5-14.5); Segmented Neutrophils % 42.3 %
[2018-09-19 05:22] LABS: Prothrombin Time 11.6 Seconds (9.4-12.1)
[2018-09-19 05:25] LABS: Activated Partial Thrombo Time 31.1 Seconds (26.0-36.0)
[2018-09-19 05:34] LABS: Alanine Aminotransferase 76 Units/L (7-52); Albumin 3.9 g/dL (3.5-5.7); Albumin/Globulin Ratio 2.1 (1.1-2.2); Alkaline Phosphatase 68 Units/L (34-104); Aspartate Amino Transferase 38 Units/L (13-39); BUN/Creatinine Ratio 20 (6-26); Bilirubin,Total 0.5 mg/dL (0.3-1.0); Blood Urea Nitrogen 19 mg/dL (8-23); Calcium 9.1 mg/dL (8.6-10.3); Carbon Dioxide 20 mEq/L (23-29); Chloride 104 mEq/L (98-107); Globulin 1.9 g/dL (2.4-3.5); Glucose 173 mg/dL (70-105); Magnesium 1.8 mg/dL (1.6-2.6); Osmolality,Calculated 284 (280-300); Potassium 3.9 mEq/L (3.5-5.1); Sodium 134 mEq/L (136-145); Total Protein 5.8 g/dL (6.4-8.9); eGFR For Non-African Americans > 60 (> 60)
[2018-09-19 06:41] LABS: Platelet Estimate Decreased (Normal)
[2018-09-19] MEDS: *HR* Heparin 5,000 UNIT/ML VIAL SQ SCH (07:45)
[2018-09-19] MEDS: Insulin LISPRO 300 UNITS/3 ML VIAL SQ SCH ×2 (07:47→11:53)
[2018-09-19] MEDS ORDERED: Piperacillin/Tazobactam 3.375 GM in 0.9 % Sodium Chloride Mini Bag 100 ML IVPB SCH (08:00)
[2018-09-19] MEDS ORDERED: amLODIPine 5 MG TABLET PO SCH (09:00)
[2018-09-19] MEDS ORDERED: Budesonide/Formoterol 160/4.5 1 PUFF INH IH SCH (10:00)
[2018-09-19 10:42] VITALS: BP 106/57
--- NOTE | 2018-09-19 11:24 | Discharge Summary ---
- NOTES TO OUTPATIENT PROVIDER Notes to Outpatient Provider: Treated for pneumonia, clinicially improving, sent home on Levaquin. Patient reports chronic weakness, consider outpatient PT. CT imaging showed possible new metastatic lesions in iliac lymph nodes and lung, I let oncology know about this Orders not resulted at time of discharge: Pending orders 09/18/18 18:33 Culture,Blood [BC] Stat 09/18/18 22:47 Culture,Sputum with Gram Stain [RM] Stat 09/19/18 06:00 ECG 12 lead ECG [ECG] AM 0600 Date of Encounter: 09/19/18 Time of Encounter: 11:21 - Discharge Diagnosis (1) Pneumonia Priority: Primary Status: Acute Qualifiers: Pneumonia type: due to unspecified organism Laterality: bilateral Lung location: lower lobe of lung Qualified Code(s): J18.1 - Lobar pneumonia, unspecified organism (2) Pleurisy Priority: Secondary Status: Acute (3) Cholangiocarcinoma Priority: Secondary Status: Chronic (4) Type 2 diabetes mellitus Priority: Secondary Status: Chronic Qualifiers: Diabetes mellitus mcc insulin use: without mcc use Diabetes mellitus complication status: without complication Qualified Code(s): E11.9 - Type 2 diabetes mellitus without complications (5) COPD (chronic obstructive pulmonary disease) Priority: Secondary Status: Chronic Qualifiers: COPD type: COPD with acute lower respiratory infection Qualified Code(s): J44.0 - Chronic obstructive pulmonary disease with acute lower respiratory infection Hospital course: Mr. Louis is a 77 year old male with history of COPD, cholangiocarcinoma metastatic disease presented with pleurisy and shortness of breath. CT of the chest revealed bilateral lower lobe infiltrates. He was treated for pneumonia with vancomycin, Zosyn, Levaquin. MRSA screening was negative so vancomycin was stopped. Patient states that he feels much better. He is not requiring any oxygen. He is afebrile, no leukocytosis. RSV, influenza A and B testing was negative. Patient is requesting to leave. At this point I feel like he is stable from a clinical standpoint and given that he is actively undergoing chemotherapy and safest to recover at home. Patient will be discharged home in stable condition. Of note CT scans did reveal progression of multiple hepatic nodules, new 8 mm right middle lobe lung nodule, new iliac lymph node nodule concerning for metastatic disease. I did call the oncology service and made them aware and they stated that they will follow up closely as an outpatient. Discharge discussed with: patient - Time Spent with Patient Total time spent providing and/or coordinating discharge services: - Discharge Medications Prescriptions: New Acetaminophen [Tylenol] 650 mg PO Q6HR PRN tablet PRN Reason: Mild Pain/Fever levoFLOXacin [Levaquin] 750 mg PO DAILY #4 tablet Continue ARIPiprazole [Abilify] 2 mg PO HS Omeprazole [PriLOSEC] 20 mg PO DAILY Prochlorperazine Maleate [Compazine] 10 mg PO Q8HR PRN #90 tablet PRN Reason: Nausea Trazodone HCl 100 mg PO HS Ipratropium/Albuterol Neb [Duoneb] 3 ml IH TID metFORMIN [Glucophage] 1,000 mg PO BIDWM Budesonide/Formoterol 160/4.5 [Symbicort 160/4.5] 2 puff IH BIDR Albuterol Sulfate [Ventolin Hfa] 2 puff IH Q6H PRN PRN Reason: Shortness Of Breath Amlodipine Besylate 5 mg PO DAILY Ondansetron HCl 8 mg PO Q8H PRN PRN Reason: Nausea And Vomiting Home Medications: ARIPiprazole [Abilify] 2 mg PO HS 06/11/18 [History] Omeprazole [PriLOSEC] 20 mg PO DAILY 06/11/18 [History] Prochlorperazine Maleate [Compazine] 10 mg PO Q8HR PRN #90 tablet 06/11/18 [Rx] Ipratropium/Albuterol Neb [Duoneb] 3 ml IH TID 07/21/18 [History] Trazodone HCl 100 mg PO HS 07/21/18 [History] Albuterol Sulfate [Ventolin Hfa] 2 puff IH Q6H PRN 09/18/18 [History] Amlodipine Besylate 5 mg PO DAILY 09/18/18 [History] Budesonide/Formoterol 160/4.5 [Symbicort 160/4.5] 2 puff IH BIDR 09/18/18 [ History] Ondansetron HCl 8 mg PO Q8H PRN 09/18/18 [History] metFORMIN [Glucophage] 1,000 mg PO BIDWM 09/18/18 [History] Acetaminophen [Tylenol] 650 mg PO Q6HR PRN tablet 09/19/18 [Rx] levoFLOXacin [Levaquin] 750 mg PO DAILY #4 tablet 09/19/18 [Rx] Allergies/Adverse Reactions: Allergy/AdvReac Type Severity Reaction Status Date / Time Gxxupxz-Bie-Ttu Reductase AdvReac Joint Pain Verified 09/18/18 13:27 Inhibitor [Statins] Tetanus Vaccines and Toxoid AdvReac Rash Verified 09/18/18 13:27 [Tetanus Vaccines & Toxoid] Date of admission: 09/18/18 23:08 Primary care physician: Igor Casarez MD Discharging clinician: Vinh Lieberman Anticipated date of discharge: 09/19/18 - Constitutional Vitals: Temp Pulse Resp BP Pulse Ox 98.1 F 76 15 106/57 91 09/19/18 10:41 09/19/18 10:41 09/19/18 10:41 09/19/18 10:41 09/19/18 10:41 General appearance: Present: cooperative, A&O X 3, pleasant, answers questions appropriately Exam: . - Respiratory Respiratory exam: Present: CTAB. Absent: rales, rhonchi, wheezes - Cardiovascular Cardiovascular exam: Present: RRR. Absent: gallop, rubs, systolic murmur - Patient Status Disposition: Home, Self-Care Condition: Fair Functional capacity at discharge: uses cane/walker Overall status at discharge: patient is progressing back to baseline - Discharge Instructions Follow Up With: Igor Casarez MD [Primary Care Provider] - (1 week) Mariama Ward MD [Partnered Physician] - (as scheduled) Additional Instructions: Please follow-up with your primary care physician within one week. Please follow up with oncology as scheduled. Please take your antibiotic until completed. Please resume your other home medications. Please return for any new or worsening symptoms. - Diet and Activity Activity: increase activity as tolerated Diet: diabetic diet
--- NOTE | 2018-09-19 16:20 | Electrocardiograph Report ---
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
== END 2018-09-19 12:51 | disposition home or self-care (01) | DRG 194 ==
LOC: 3ANU 14:35 → EMEROOARM 14:35 → 3ANU 20:23
PROVIDERS: ADMIT Internal Medicine; ATTEND Internal Medicine

== ENCOUNTER 2019-09-15 09:02 | Inpatient (IN) ==
[2019-09-15] MEDS ORDERED: Aspirin 325 MG TABLET PO ONE (09:26)
[2019-09-15] MEDS ORDERED: Ipratropium/Albuterol Neb 3 ML IH ONE ×2 (09:26→10:52)
[2019-09-15] MEDS ORDERED: methylPREDNISolone 125 MG/2 ML VIAL IVP ONE (09:26)
[2019-09-15 09:56] LABS: Basophils % 0.3 %; Mean Corpuscular Volume 96.7 fL (83.0-100.0); Red Cell Distribution Width 17.2 % (11.5-14.5)
[2019-09-15 09:58] LABS: Eosinophils # 0.5 K/mcL (0.0-0.6); Eosinophils % 12.3 %; Hematocrit 35.1 % (37.5-50.1); Hemoglobin 11.4 g/dL (12.9-16.9); Immature Granulocytes % 0.8 % (0-4); Immature Platelets 3.5 % (1.1-6.1); Lymphocytes # 0.6 K/mcL (0.6-4.6); Lymphocytes % 15.9 %; Mean Corpuscular HGB Conc 32.5 g/dL (31.6-35.5); Mean Corpuscular Hemoglobin 31.4 pg (28.0-33.3); Mean Platelet Volume 10.5 fL (9.4-12.4); Monocytes # 0.1 K/mcL (0.0-1.3); Monocytes % 2.1 %; Neutrophils # 2.7 K/mcL (1.6-8.9); Red Blood Count 3.63 M/mcL (4.19-5.50); Segmented Neutrophils % 68.6 %; White Blood Count 3.9 K/mcL (4.3-11.1)
[2019-09-15 10:00] LABS: Platelet Count 74 K/mcL (140-400)
[2019-09-15 10:02] LABS: INR 1.2; Prothrombin Time 13.2 Seconds (9.4-12.1)
[2019-09-15 10:05] LABS: Activated Partial Thrombo Time 33.7 Seconds (26.0-36.0)
[2019-09-15 10:33] LABS: Alanine Aminotransferase 49 Units/L (7-52); Albumin 3.7 g/dL (3.5-5.7); Albumin/Globulin Ratio 1.4 (1.1-2.2); Alkaline Phosphatase 99 Units/L (34-104); Aspartate Amino Transferase 42 Units/L (13-39); BUN/Creatinine Ratio 18 (6-26); Bilirubin,Direct 0.3 mg/dL (0.0-0.2); Bilirubin,Indirect 0.7 mg/dL (0.0-1.0); Blood Urea Nitrogen 17 mg/dL (8-23); Calcium 9.6 mg/dL (8.6-10.3); Carbon Dioxide 26 mEq/L (23-29); Chloride 100 mEq/L (98-107); Globulin 2.6 g/dL (2.4-3.5); Glucose 172 mg/dL (70-105); Lipase 20 Units/L (11-82); Osmolality,Calculated 282 (280-300); Potassium 4.4 mEq/L (3.5-5.1); Sodium 133 mEq/L (136-145); Total Protein 6.3 g/dL (6.4-8.9); Troponin I < 0.03 ng/mL (< 0.04); eGFR For African Americans > 60 (> 60); eGFR For Non-African Americans > 60 (> 60)
[2019-09-15] MEDS ORDERED: Piperacillin/Tazobactam 3.375 GM in Water for inj. (sterile) 20 ML IVP ONE (11:32)
[2019-09-15] MEDS ORDERED: Naloxone 0.4 MG/ML INJ IVP PRN (13:05)
[2019-09-15] MEDS ORDERED: Ondansetron 4 MG/2 ML VIAL IVP PRN (13:05)
[2019-09-15] MEDS ORDERED: *HR* HYDROcodone/Acet 5/325 mg TABLET PO PRN (13:05)
[2019-09-15] MEDS ORDERED: Acetaminophen 325 MG TABLET PO PRN (13:05)
[2019-09-15] MEDS ORDERED: D5% in Water 1,000 ML IVC PRN (13:10)
[2019-09-15] MEDS ORDERED: *HR* Dextrose 50 % in Water (Syg) 50 ML SYRINGE IVP PRN (13:10)
[2019-09-15] MEDS ORDERED: Dextrose Gel 15 GM/37.5 ML TUBE PO PRN ×2 (13:10)
[2019-09-15] MEDS ORDERED: Ipratropium/Albuterol Neb 3 ML IH PRN (13:27)
[2019-09-15] MEDS ORDERED: Nitroglycerin 0.4 MG TAB.SUBL SL PRN (15:29)
[2019-09-15] MEDS ORDERED: LIDOCAINE HCL APPL TP PRN (15:29)
[2019-09-15] MEDS: Azithromycin 500 MG in 0.9 % Sodium Chloride 250 ML IVPB SCH (15:43)
[2019-09-15] MEDS: Insulin LISPRO 300 UNITS/3 ML VIAL SQ SCH (15:50)
[2019-09-15] MEDS: Ipratropium/Albuterol Neb 3 ML IH SCH ×2 (16:31→21:38)
[2019-09-15] MEDS: Piperacillin/Tazobactam 3.375 GM in 0.9 % Sodium Chloride Mini Bag 100 ML IVPB SCH (18:19)
[2019-09-15] MEDS: traZODone 50 MG TABLET PO SCH (20:36)
[2019-09-15] MEDS ORDERED: Insulin LISPRO 300 UNITS/3 ML VIAL SQ SCH (21:00)
[2019-09-15] MEDS ORDERED: ARIPiprazole 2 MG TABLET PO SCH (21:00)
[2019-09-15] MEDS: Budesonide/Formoterol 160/4.5 1 PUFF INH IH SCH (21:38)
[2019-09-16] MEDS: Piperacillin/Tazobactam 3.375 GM in 0.9 % Sodium Chloride Mini Bag 100 ML IVPB SCH ×3 (02:49→17:16)
[2019-09-16] MEDS: Ipratropium/Albuterol Neb 3 ML IH SCH ×6 (03:55→19:48)
[2019-09-16 05:26] LABS: Basophils % 0.4 %; Eosinophils % 0.8 %; Hematocrit 33.1 % (37.5-50.1); Immature Granulocytes % 2.4 % (0-4); Lymphocytes # 0.7 K/mcL (0.6-4.6); Mean Corpuscular HGB Conc 33.2 g/dL (31.6-35.5); Mean Corpuscular Volume 96.2 fL (83.0-100.0); Mean Platelet Volume 10.4 fL (9.4-12.4); Monocytes # 0.1 K/mcL (0.0-1.3); Monocytes % 3.6 %; Neutrophils # 1.7 K/mcL (1.6-8.9); Red Blood Count 3.44 M/mcL (4.19-5.50); Red Cell Distribution Width 16.9 % (11.5-14.5); Segmented Neutrophils % 66.8 %; White Blood Count 2.5 K/mcL (4.3-11.1)
[2019-09-16 05:33] LABS: Platelet Count 58 K/mcL (140-400)
[2019-09-16 05:38] LABS: BUN/Creatinine Ratio 24 (6-26); Blood Urea Nitrogen 23 mg/dL (8-23); Calcium 9.7 mg/dL (8.6-10.3); Carbon Dioxide 25 mEq/L (23-29); Chloride 102 mEq/L (98-107); Glucose 279 mg/dL (70-105); Osmolality,Calculated 290 (280-300); Potassium 4.4 mEq/L (3.5-5.1); Sodium 133 mEq/L (136-145); eGFR For African Americans > 60 (> 60); eGFR For Non-African Americans > 60 (> 60)
[2019-09-16] MEDS: Cyanocobalamin (B-12) 1,000 MCG TABLET PO SCH (08:50)
[2019-09-16] MEDS: Insulin LISPRO 300 UNITS/3 ML VIAL SQ SCH ×3 (08:50→17:16)
[2019-09-16] MEDS: Budesonide/Formoterol 160/4.5 1 PUFF INH IH SCH ×2 (10:45→19:47)
[2019-09-16] MEDS ORDERED: Insulin LISPRO 300 UNITS/3 ML VIAL SQ SCH (11:03)
[2019-09-16] MEDS ORDERED: QUEtiapine Fumarate 25 MG TABLET PO PRN (11:03)
[2019-09-16 12:24] LABS: Adenovirus Not Detected (Not Detect); Bordetella Pertussis Not Detected (Not Detect); Chlamydophila pneumoniae Not Detected (Not Detect); Coronavirus 229E Not Detected (Not Detect); Coronavirus HKU1 Not Detected (Not Detect); Coronavirus NL63 Not Detected (Not Detect); Coronavirus OC43 Not Detected (Not Detect); Human Metapneumovirus Not Detected (Not Detect); Human Rhinovirus/Enterovirus Not Detected (Not Detect); Influenza A Subtype 2009 H1 Not Detected (Not Detect); Influenza B Not Detected (Not Detect); Mycoplasma pneumoniae Not Detected (Not Detect); Parainfluenza Virus 1 Not Detected (Not Detect); Parainfluenza Virus 2 Not Detected (Not Detect); Parainfluenza Virus 3 Not Detected (Not Detect); Parainfluenza Virus 4 Not Detected (Not Detect); Respiratory Syncytial Virus Not Detected (Not Detect)
[2019-09-16] MEDS: Azithromycin 500 MG in 0.9 % Sodium Chloride 250 ML IVPB SCH (14:53)
[2019-09-16] MEDS: Sennosides/Docusate Sodium TABLET PO SCH (17:15)
[2019-09-16] MEDS: polyethylene glycoL 3350 17 GM POWD.PACK PO SCH (17:16)
[2019-09-16] MEDS: traZODone 50 MG TABLET PO SCH (21:28)
[2019-09-17] MEDS: Ipratropium/Albuterol Neb 3 ML IH SCH ×3 (00:04→07:38)
[2019-09-17] MEDS: Piperacillin/Tazobactam 3.375 GM in 0.9 % Sodium Chloride Mini Bag 100 ML IVPB SCH ×2 (02:57→08:35)
[2019-09-17 03:19] LABS: Hemoglobin 11.6 g/dL (12.9-16.9); Red Cell Distribution Width 17.3 % (11.5-14.5)
[2019-09-17 03:21] LABS: Basophils % 0.6 %; Eosinophils # 0.3 K/mcL (0.0-0.6); Eosinophils % 9.1 %; Hematocrit 35.5 % (37.5-50.1); Immature Granulocytes % 3.4 % (0-4); Immature Platelets 1.7 % (1.1-6.1); Lymphocytes # 0.8 K/mcL (0.6-4.6); Lymphocytes % 25.1 %; Mean Corpuscular HGB Conc 32.7 g/dL (31.6-35.5); Mean Corpuscular Volume 98.1 fL (83.0-100.0); Mean Platelet Volume 9.4 fL (9.4-12.4); Monocytes # 0.3 K/mcL (0.0-1.3); Monocytes % 7.8 %; Neutrophils # 1.7 K/mcL (1.6-8.9); Red Blood Count 3.62 M/mcL (4.19-5.50); White Blood Count 3.2 K/mcL (4.3-11.1)
[2019-09-17 03:49] LABS: BUN/Creatinine Ratio 19 (6-26); Blood Urea Nitrogen 22 mg/dL (8-23); Calcium 9.4 mg/dL (8.6-10.3); Carbon Dioxide 24 mEq/L (23-29); Chloride 104 mEq/L (98-107); Glucose 230 mg/dL (70-105); Magnesium 2.1 mg/dL (1.6-2.6); Osmolality,Calculated 291 (280-300); Potassium 4.3 mEq/L (3.5-5.1); Sodium 135 mEq/L (136-145); eGFR For African Americans > 60 (> 60); eGFR For Non-African Americans > 60 (> 60)
[2019-09-17 03:57] LABS: Platelet Count 56 K/mcL (140-400)
[2019-09-17] MEDS: Budesonide/Formoterol 160/4.5 1 PUFF INH IH SCH (07:38)
[2019-09-17] MEDS: Cyanocobalamin (B-12) 1,000 MCG TABLET PO SCH (08:34)
[2019-09-17] MEDS: lisinopriL 5 MG TABLET PO SCH ×2 (08:34→09:21)
[2019-09-17] MEDS: Sennosides/Docusate Sodium TABLET PO SCH (08:35)
[2019-09-17] MEDS: polyethylene glycoL 3350 17 GM POWD.PACK PO SCH (08:36)
[2019-09-17] MEDS: Insulin LISPRO 300 UNITS/3 ML VIAL SQ SCH (08:36)
[2019-09-17 10:12] VITALS: BP 135/73
== END 2019-09-17 11:17 | disposition home or self-care (01) ==
LOC: 3BNU 09:02 → EMEROOARM 09:02 → SUATTDRO 13:58 → 3BNU 14:44
PROVIDERS: ADMIT Internal Medicine; ATTEND Internal Medicine

== ENCOUNTER 2020-03-27 19:40 | Inpatient (IN) ==
[2020-03-27] MEDS ORDERED: Ipratropium/Albuterol Neb 3 ML IH ONE (19:48)
[2020-03-27] MEDS ORDERED: methylPREDNISolone 125 MG/2 ML VIAL IVP ONE (19:49)
[2020-03-27] MEDS ORDERED: 0.9 % Sodium Chloride 1,000 ML ONE (20:05)
[2020-03-27 20:12] LABS: Bilirubin,Urine Small (Negative); Blood,Urine Small (Negative); Clarity,Urine Clear (Clear); Color,Urine Yellow (Yellow); Glucose,Urine (UA) Normal (Normal); Ketones,Urine Trace mg/dL (Negative); Leukocyte Esterase,Urine Small (Negative); Nitrite,Urine Negative (Negative); PH,Urine 5.5 pH Units (5.0-8.0); Protein,Urine 100 mg/dL (Neg-Trace); Specific Gravity,Urine 1.025 (1.010-1.025); Urobilinogen,Urine Normal (Normal)
[2020-03-27 20:13] LABS: Bacteria,Urine Few per hpf (None-Few); Mucus,Urine Few per lpf (None-Few); Squamous Epithelial Cell,Urine Few per hpf (None-Few); WBC,Urine TNTC per hpf (0-3)
[2020-03-27 20:13] LABS: Basophils % 0.2 %; Hemoglobin 13.7 g/dL (12.9-16.9); Lymphocytes % 6.7 %
[2020-03-27 20:15] LABS: Eosinophils # 0.2 K/mcL (0.0-0.6); Eosinophils % 1.2 %; Hematocrit 41.5 % (37.5-50.1); Immature Granulocytes % 4.8 % (0-4); Immature Platelets 9.2 % (1.1-6.1); Lymphocytes # 1.3 K/mcL (0.6-4.6); Mean Corpuscular Hemoglobin 31.3 pg (28.0-33.3); Mean Corpuscular Volume 94.7 fL (83.0-100.0); Monocytes % 20.8 %; Neutrophils # 12.6 K/mcL (1.6-8.9); Red Blood Count 4.38 M/mcL (4.19-5.50); Red Cell Distribution Width 16.2 % (11.5-14.5); Segmented Neutrophils % 66.3 %
[2020-03-27 20:17] LABS: Platelet Count 84 K/mcL (140-400)
[2020-03-27] MEDS ORDERED: Piperacillin/Tazobactam 3.375 GM in Water for inj. (sterile) 20 ML IVP ONE (20:32)
[2020-03-27 20:33] LABS: BUN/Creatinine Ratio 21 (6-26); Blood Urea Nitrogen 21 mg/dL (8-23); Calcium 10.8 mg/dL (8.6-10.3); Carbon Dioxide 23 mEq/L (23-29); Chloride 99 mEq/L (98-107); Glucose 151 mg/dL (70-105); Osmolality,Calculated 282 (280-300); Potassium 4.3 mEq/L (3.5-5.1); Sodium 133 mEq/L (136-145); eGFR For African Americans > 60 (> 60); eGFR For Non-African Americans > 60 (> 60)
[2020-03-27 20:34] LABS: Troponin I < 0.03 ng/mL (< 0.04)
[2020-03-27] MEDS ORDERED: 0.9 % Sodium Chloride 1,000 ML IVC ONE ×2 (20:34→21:39)
[2020-03-27] MEDS ORDERED: Vancomycin 1,500 MG/265 ML IV.SOLN IVPB ONE (20:45)
[2020-03-27] MEDS ORDERED: Isovue-370 500 ML BOTTLE IVP ONE (21:20)
[2020-03-27 21:37] LABS: Adenovirus Not Detected (Not Detect); Bordetella Pertussis Not Detected (Not Detect); Chlamydophila pneumoniae Not Detected (Not Detect); Coronavirus 229E Not Detected (Not Detect); Coronavirus HKU1 Not Detected (Not Detect); Coronavirus NL63 Not Detected (Not Detect); Coronavirus OC43 Not Detected (Not Detect); Human Metapneumovirus Not Detected (Not Detect); Human Rhinovirus/Enterovirus Not Detected (Not Detect); Influenza A Subtype 2009 H1 Not Detected (Not Detect); Influenza B Not Detected (Not Detect); Mycoplasma pneumoniae Not Detected (Not Detect); Parainfluenza Virus 1 Not Detected (Not Detect); Parainfluenza Virus 2 Not Detected (Not Detect); Parainfluenza Virus 3 Not Detected (Not Detect); Parainfluenza Virus 4 Not Detected (Not Detect); Respiratory Syncytial Virus Not Detected (Not Detect); SARS-CoV-2 Not Detected (Not Detect)
[2020-03-28] MEDS ORDERED: *HR* Promethazine 25 MG/ML VIAL IVP PRN (00:08)
[2020-03-28] MEDS ORDERED: Naloxone 0.4 MG/ML INJ IVP PRN (00:08)
[2020-03-28] MEDS ORDERED: Acetaminophen 325 MG TABLET PO PRN (00:08)
[2020-03-28] MEDS ORDERED: D5% in Water 1,000 ML IVC PRN (02:58)
[2020-03-28] MEDS ORDERED: *HR* Dextrose 50 % in Water (Vial) 50 ML VIAL IVP PRN (02:58)
[2020-03-28] MEDS ORDERED: Dextrose Gel 15 GM/37.5 ML TUBE PO PRN ×2 (02:58)
[2020-03-28 05:59] LABS: Basophils % 0.1 %
[2020-03-28 06:00] LABS: Hematocrit 36.7 % (37.5-50.1); Hemoglobin 11.9 g/dL (12.9-16.9); Immature Granulocytes % 3.2 % (0-4); Immature Platelets 5.2 % (1.1-6.1); Lymphocytes # 0.6 K/mcL (0.6-4.6); Lymphocytes % 6.3 %; Mean Corpuscular HGB Conc 32.4 g/dL (31.6-35.5); Mean Corpuscular Hemoglobin 31.2 pg (28.0-33.3); Mean Corpuscular Volume 96.1 fL (83.0-100.0); Mean Platelet Volume 10.6 fL (9.4-12.4); Monocytes # 0.4 K/mcL (0.0-1.3); Red Blood Count 3.82 M/mcL (4.19-5.50); Red Cell Distribution Width 16.1 % (11.5-14.5); Segmented Neutrophils % 86.4 %; White Blood Count 10.1 K/mcL (4.3-11.1)
[2020-03-28 06:01] LABS: Neutrophils # 8.7 K/mcL (1.6-8.9); Platelet Count 73 K/mcL (140-400)
[2020-03-28 06:14] LABS: INR 1.4; Prothrombin Time 15.9 Seconds (9.4-12.1)
[2020-03-28 06:15] LABS: BUN/Creatinine Ratio 26 (6-26); Blood Urea Nitrogen 24 mg/dL (8-23); Calcium 9.7 mg/dL (8.6-10.3); Carbon Dioxide 24 mEq/L (23-29); Chloride 103 mEq/L (98-107); Glucose 227 mg/dL (70-105); Magnesium 1.8 mg/dL (1.6-2.6); Osmolality,Calculated 291 (280-300); Phosphorous 3.4 mg/dL (2.7-4.5); Potassium 4.3 mEq/L (3.5-5.1); Sodium 135 mEq/L (136-145); eGFR For African Americans > 60 (> 60); eGFR For Non-African Americans > 60 (> 60)
[2020-03-28] MEDS ORDERED: Piperacillin/Tazobactam 3.375 GM in 0.9 % Sodium Chloride Mini Bag 100 ML IVPB SCH (08:00)
[2020-03-28] MEDS: Insulin LISPRO 300 UNITS/3 ML VIAL SQ SCH ×4 (08:38→17:17)
[2020-03-28] MEDS: MethylPREDNISolone 40 MG/ML VIAL IVP SCH ×2 (09:41→17:17)
[2020-03-28] MEDS ORDERED: Ipratropium/Albuterol Neb 3 ML IH SCH (10:00)
[2020-03-28] MEDS: Budesonide/Formoterol 160/4.5 1 PUFF INH IH SCH ×2 (10:14→19:42)
[2020-03-28] MEDS ORDERED: cefTRIAXone 2,000 MG in Water for inj. (sterile) 20 ML IVP SCH ×2 (12:00→15:00)
[2020-03-28] MEDS: Azithromycin 500 MG in 0.9 % Sodium Chloride 250 ML IVPB SCH (14:59)
[2020-03-28] MEDS: cefTRIAXone 1,000 MG in Water for inj. (sterile) 10 ML IVP SCH (15:07)
[2020-03-28] MEDS: Ipratropium/Albuterol Neb 3 ML IH SCH ×3 (15:34→23:38)
[2020-03-28] MEDS: traZODone 50 MG TABLET PO SCH (21:03)
[2020-03-28] MEDS: ARIPiprazole 2 MG TABLET PO SCH (21:03)
[2020-03-29] MEDS: MethylPREDNISolone 40 MG/ML VIAL IVP SCH ×2 (00:08→08:36)
[2020-03-29] MEDS: Ipratropium/Albuterol Neb 3 ML IH SCH ×5 (04:20→19:37)
[2020-03-29] MEDS: Budesonide/Formoterol 160/4.5 1 PUFF INH IH SCH ×2 (07:22→19:37)
[2020-03-29] MEDS: Insulin LISPRO 300 UNITS/3 ML VIAL SQ SCH ×3 (08:37→17:50)
[2020-03-29 09:26] LABS: Red Cell Distribution Width 15.9 % (11.5-14.5)
[2020-03-29 09:28] LABS: Hematocrit 38.7 % (37.5-50.1); Hemoglobin 12.7 g/dL (12.9-16.9); Immature Granulocytes % 1.6 % (0-4); Immature Platelets 7.2 % (1.1-6.1); Lymphocytes # 0.5 K/mcL (0.6-4.6); Lymphocytes % 6.4 %; Mean Corpuscular HGB Conc 32.8 g/dL (31.6-35.5); Mean Corpuscular Hemoglobin 31.1 pg (28.0-33.3); Mean Corpuscular Volume 94.9 fL (83.0-100.0); Mean Platelet Volume 10.7 fL (9.4-12.4); Monocytes # 0.5 K/mcL (0.0-1.3); Monocytes % 5.8 %; Platelet Count 86 K/mcL (140-400); Red Blood Count 4.08 M/mcL (4.19-5.50); Segmented Neutrophils % 86.2 %; White Blood Count 8.1 K/mcL (4.3-11.1)
[2020-03-29 09:49] LABS: BUN/Creatinine Ratio 35 (6-26); Blood Urea Nitrogen 29 mg/dL (8-23); Calcium 9.7 mg/dL (8.6-10.3); Carbon Dioxide 25 mEq/L (23-29); Chloride 102 mEq/L (98-107); Glucose 188 mg/dL (70-105); Osmolality,Calculated 291 (280-300); Potassium 4.3 mEq/L (3.5-5.1); Sodium 135 mEq/L (136-145); eGFR For African Americans > 60 (> 60); eGFR For Non-African Americans > 60 (> 60)
[2020-03-29 09:59] LABS: Thyroid Stimulating Hormone 1.649 mcIU/mL (0.340-5.600)
[2020-03-29] MEDS: Azithromycin 500 MG in 0.9 % Sodium Chloride 250 ML IVPB SCH (13:30)
[2020-03-29] MEDS: cefTRIAXone 1,000 MG in Water for inj. (sterile) 10 ML IVP SCH (16:15)
[2020-03-29] MEDS: traZODone 50 MG TABLET PO SCH (20:45)
[2020-03-29] MEDS: ARIPiprazole 2 MG TABLET PO SCH (20:45)
[2020-03-30 05:59] LABS: Basophils % 0.2 %; Eosinophils % 0.2 %; Hematocrit 38.1 % (37.5-50.1); Hemoglobin 12.1 g/dL (12.9-16.9); Immature Granulocytes % 1.5 % (0-4); Immature Platelets 7.2 % (1.1-6.1); Lymphocytes # 0.8 K/mcL (0.6-4.6); Lymphocytes % 12.8 %; Mean Corpuscular HGB Conc 31.8 g/dL (31.6-35.5); Mean Corpuscular Volume 97.7 fL (83.0-100.0); Mean Platelet Volume 11.8 fL (9.4-12.4); Monocytes # 0.8 K/mcL (0.0-1.3); Monocytes % 13.7 %; Neutrophils # 4.2 K/mcL (1.6-8.9); Platelet Count 77 K/mcL (140-400); Red Cell Distribution Width 16.1 % (11.5-14.5); Segmented Neutrophils % 71.6 %; White Blood Count 5.9 K/mcL (4.3-11.1)
[2020-03-30 06:27] LABS: BUN/Creatinine Ratio 34 (6-26); Blood Urea Nitrogen 28 mg/dL (8-23); Calcium 9.3 mg/dL (8.6-10.3); Carbon Dioxide 25 mEq/L (23-29); Chloride 103 mEq/L (98-107); Glucose 186 mg/dL (70-105); Osmolality,Calculated 290 (280-300); Potassium 4.2 mEq/L (3.5-5.1); Sodium 135 mEq/L (136-145); eGFR For African Americans > 60 (> 60); eGFR For Non-African Americans > 60 (> 60)
[2020-03-30] MEDS: Budesonide/Formoterol 160/4.5 1 PUFF INH IH SCH (07:31)
[2020-03-30] MEDS: Ipratropium/Albuterol Neb 3 ML IH SCH ×2 (07:34→16:12)
[2020-03-30] MEDS: Insulin LISPRO 300 UNITS/3 ML VIAL SQ SCH ×2 (08:13→11:42)
[2020-03-30] MEDS ORDERED: predniSONE 20 MG TABLET PO SCH (09:00)
[2020-03-30 10:06] VITALS: BP 148/76
[2020-03-30] MEDS ORDERED: Docusate Oral Soln 100 MG/10 ML UDC PO SCH (10:30)
[2020-03-30] MEDS: cefTRIAXone 1,000 MG in Water for inj. (sterile) 10 ML IVP SCH (15:00)
[2020-03-30] MEDS: Azithromycin 500 MG in 0.9 % Sodium Chloride 250 ML IVPB SCH (15:00)
== END 2020-03-30 16:50 | disposition home health service (06) | DRG 871 ==
LOC: EMEROOARM 19:40 → 3ANU 19:40
PROVIDERS: ADMIT Internal Medicine; ATTEND Internal Medicine

== ENCOUNTER 2020-08-25 14:28 | Inpatient (IN) ==
[2020-08-25 15:42] LABS: Mean Corpuscular Volume 94.2 fL (83.0-100.0)
[2020-08-25 15:44] LABS: Hematocrit 35.9 % (37.5-50.1); Hemoglobin 11.8 g/dL (12.9-16.9); Immature Platelets 2.9 % (1.1-6.1); Mean Corpuscular HGB Conc 32.9 g/dL (31.6-35.5); Mean Platelet Volume 10.3 fL (9.4-12.4); Red Blood Count 3.81 M/mcL (4.19-5.50); Red Cell Distribution Width 14.8 % (11.5-14.5); White Blood Count 6.6 K/mcL (4.3-11.1)
[2020-08-25 15:50] LABS: Platelet Count 93 K/mcL (140-400)
[2020-08-25 15:57] LABS: INR 1.2; Prothrombin Time 13.5 Seconds (9.4-12.1)
[2020-08-25 15:59] LABS: Activated Partial Thrombo Time 30.9 Seconds (26.0-36.0)
[2020-08-25 16:06] LABS: Alanine Aminotransferase 18 Units/L (7-52); Albumin 3.9 g/dL (3.5-5.7); Albumin/Globulin Ratio 1.4 (1.1-2.2); Alkaline Phosphatase 160 Units/L (34-104); Aspartate Amino Transferase 22 Units/L (13-39); BUN/Creatinine Ratio 25 (6-26); Bilirubin,Direct 0.2 mg/dL (0.0-0.2); Bilirubin,Indirect 0.3 mg/dL (0.0-1.0); Bilirubin,Total 0.5 mg/dL (0.3-1.0); Blood Urea Nitrogen 68 mg/dL (8-23); Calcium 10.4 mg/dL (8.6-10.3); Carbon Dioxide 19 mEq/L (23-29); Chloride 106 mEq/L (98-107); Eosinophils # 1.1 K/mcL (0.0-0.6); Ethanol < 10 mg/dL (Less than 10); Globulin 2.7 g/dL (2.4-3.5); Glucose 103 mg/dL (70-105); Large Platelets Present (Not Present); Lymphocytes # 0.8 K/mcL (0.6-4.6); Monocytes # 0.7 K/mcL (0.0-1.3); Neutrophils # 4.1 K/mcL (1.6-8.9); Osmolality,Calculated 304 (280-300); Platelet Estimate Decreased (Normal); Potassium 4.4 mEq/L (3.5-5.1); Sodium 137 mEq/L (136-145); Total Protein 6.6 g/dL (6.4-8.9); Troponin I < 0.03 ng/mL (< 0.04); eGFR For African Americans 27 (> 60); eGFR For Non-African Americans 22 (> 60)
[2020-08-25 16:16] LABS: Bacteria,Urine Few per hpf (None-Few); Bilirubin,Urine Negative (Negative); Blood,Urine Trace (Negative); Clarity,Urine Clear (Clear); Color,Urine Light-Yellow (Yellow); Glucose,Urine (UA) Normal (Normal); Ketones,Urine Negative (Negative); Leukocyte Esterase,Urine Trace (Negative); Mucus,Urine Few per lpf (None-Few); Nitrite,Urine Negative (Negative); Protein,Urine 30 mg/dL (Neg-Trace); Specific Gravity,Urine 1.014 (1.010-1.025); Urobilinogen,Urine Normal (Normal); WBC,Urine 15-30 per hpf (0-3)
[2020-08-25 16:23] LABS: Amphetamine Screen,Urine Negative ng/mL (Cutoff=1000); Barbiturate Screen,Urine Negative ng/mL (Cutoff=200); Benzodiazepines Screen,Urine Negative ng/mL (Cutoff=200); Cannabinoid Screen,Urine Negative ng/mL (Cutoff = 50); Cocaine Screen,Urine Negative ng/mL (Cutoff= 300); Opiate Screen,Urine Negative ng/mL (Cutoff=300); Phencyclidine Screen,Urine Negative ng/mL (Cutoff=25)
[2020-08-25] MEDS ORDERED: cefTRIAXone 1,000 MG in 0.9 % Sodium Chloride Mini Bag 100 ML IVPB ONE (16:24)
[2020-08-25] MEDS ORDERED: 0.9 % Sodium Chloride 500 ML IVC ONE (16:24)
[2020-08-25] MEDS ORDERED: MOM Conc 10 ML UD.LIQ PO PRN (17:51)
[2020-08-25] MEDS ORDERED: Naloxone 0.4 MG/ML INJ IVP PRN (17:51)
[2020-08-25] MEDS ORDERED: Ondansetron ODT 4 MG TAB.RAPDIS SL PRN (17:51)
[2020-08-25] MEDS ORDERED: Nitroglycerin 0.4 MG TAB.SUBL SL PRN (17:53)
[2020-08-25] MEDS ORDERED: 0.9 % Sodium Chloride 1,000 ML IVC SCH (18:00)
[2020-08-25] MEDS ORDERED: D5% in Water 1,000 ML IVC PRN (18:05)
[2020-08-25] MEDS ORDERED: *HR* Dextrose 50 % in Water (Vial) 50 ML VIAL IVP PRN (18:05)
[2020-08-25] MEDS ORDERED: Dextrose Gel 15 GM/37.5 ML TUBE PO PRN ×2 (18:05)
[2020-08-25] MEDS: Budesonide/Formoterol 160/4.5 1 PUFF INH IH SCH (19:57)
[2020-08-25] MEDS: Insulin LISPRO 300 UNITS/3 ML VIAL SUBQ SCH (20:53)
[2020-08-25] MEDS: traZODone 50 MG TABLET PO SCH (21:00)
[2020-08-25] MEDS: *HR* Acetylcysteine 20% 600 MG/3 ML ORAL SYRINGE PO SCH (21:00)
[2020-08-25] MEDS: ARIPiprazole 2 MG TABLET PO SCH (21:00)
[2020-08-25] MEDS: Ipratropium/Albuterol Neb 3 ML IH PRN (21:59)
[2020-08-26] MEDS: Ipratropium/Albuterol Neb 3 ML IH PRN (04:07)
[2020-08-26 06:03] LABS: Hematocrit 31.4 % (37.5-50.1); Hemoglobin 10.4 g/dL (12.9-16.9); Mean Corpuscular HGB Conc 33.1 g/dL (31.6-35.5); Mean Corpuscular Hemoglobin 30.8 pg (28.0-33.3); Mean Corpuscular Volume 92.9 fL (83.0-100.0); Mean Platelet Volume 10.4 fL (9.4-12.4); Red Blood Count 3.38 M/mcL (4.19-5.50); Red Cell Distribution Width 14.6 % (11.5-14.5); White Blood Count 5.5 K/mcL (4.3-11.1)
[2020-08-26 06:04] LABS: INR 1.2; Prothrombin Time 14.2 Seconds (9.4-12.1)
[2020-08-26 06:05] LABS: Platelet Count 87 K/mcL (140-400)
[2020-08-26 06:23] LABS: Albumin 3.4 g/dL (3.5-5.7); Albumin/Globulin Ratio 1.4 (1.1-2.2); Bilirubin,Total 0.6 mg/dL (0.3-1.0); Calcium 9.7 mg/dL (8.6-10.3); Globulin 2.4 g/dL (2.4-3.5); Total Protein 5.8 g/dL (6.4-8.9)
[2020-08-26] MEDS: Budesonide/Formoterol 160/4.5 1 PUFF INH IH SCH ×2 (07:40→22:23)
[2020-08-26] MEDS: Insulin LISPRO 300 UNITS/3 ML VIAL SUBQ SCH ×4 (08:07→20:46)
[2020-08-26] MEDS: cefTRIAXone 1,000 MG in Water for inj. (sterile) 10 ML IVP SCH (08:27)
[2020-08-26] MEDS: Cyanocobalamin (B-12) 1,000 MCG TABLET PO SCH (08:29)
[2020-08-26] MEDS: *HR* Acetylcysteine 20% 600 MG/3 ML ORAL SYRINGE PO SCH ×2 (09:31→20:47)
[2020-08-26 15:08] LABS: Uric Acid 8.3 mg/dL (2.3-7.6)
[2020-08-26] MEDS: ARIPiprazole 2 MG TABLET PO SCH (20:47)
[2020-08-26] MEDS: traZODone 50 MG TABLET PO SCH (20:47)
[2020-08-26] MEDS ORDERED: NON-FORMULARY MEDICATION 1 EACH EACH (Acetylcysteine [N-Acetyl-L-Cysteine] 600 MG) PO SCH (21:00)
[2020-08-27 04:16] LABS: Red Cell Distribution Width 14.7 % (11.5-14.5)
[2020-08-27 04:17] LABS: Hematocrit 31.8 % (37.5-50.1); Hemoglobin 10.7 g/dL (12.9-16.9); Immature Platelets 2.3 % (1.1-6.1); Mean Corpuscular HGB Conc 33.6 g/dL (31.6-35.5); Mean Corpuscular Hemoglobin 30.8 pg (28.0-33.3); Mean Corpuscular Volume 91.6 fL (83.0-100.0); Mean Platelet Volume 10.4 fL (9.4-12.4); Red Blood Count 3.47 M/mcL (4.19-5.50); White Blood Count 5.5 K/mcL (4.3-11.1)
[2020-08-27 04:34] LABS: Calcium 9.4 mg/dL (8.6-10.3)
[2020-08-27] MEDS: Budesonide/Formoterol 160/4.5 1 PUFF INH IH SCH ×2 (07:33→20:52)
[2020-08-27] MEDS: Insulin LISPRO 300 UNITS/3 ML VIAL SUBQ SCH ×4 (08:43→21:13)
[2020-08-27] MEDS: *HR* Acetylcysteine 20% 600 MG/3 ML ORAL SYRINGE PO SCH ×2 (08:45→21:17)
[2020-08-27] MEDS: Cyanocobalamin (B-12) 1,000 MCG TABLET PO SCH (08:45)
[2020-08-27] MEDS: Lactobacillus 1 EACH CAP.SPRINK PO SCH (08:45)
[2020-08-27] MEDS: cefTRIAXone 1,000 MG in Water for inj. (sterile) 10 ML IVP SCH (08:49)
[2020-08-27] MEDS ORDERED: 0.9 % Sodium Chloride 500 ML IVC ONE (12:01)
[2020-08-27] MEDS: Amoxicillin/Clavulanate 500 MG TABLET PO SCH ×2 (12:34→17:42)
[2020-08-27] MEDS ORDERED: 0.9 % Sodium Chloride 1,000 ML IVC SCH (13:15)
[2020-08-27 14:00] LABS: Bacteria,Urine Few per hpf (None-Few); Bilirubin,Urine Negative (Negative); Blood,Urine Trace (Negative); Clarity,Urine Clear (Clear); Color,Urine Colorless (Yellow); Glucose,Urine (UA) Normal (Normal); Ketones,Urine Negative (Negative); Leukocyte Esterase,Urine Negative (Negative); Mucus,Urine Few per lpf (None-Few); Nitrite,Urine Negative (Negative); Protein,Urine Trace mg/dL (Neg-Trace); RBC,Urine 0-3 per hpf (0-3); Squamous Epithelial Cell,Urine Few per hpf (None-Few); Urobilinogen,Urine Normal (Normal)
[2020-08-27 14:09] LABS: Protein/Creatinine Ratio,Urine 0.79 mg/mg (0.00-0.20); Sodium, Urine 63.1 mEq/L
[2020-08-27] MEDS: *HR* Heparin 5,000 UNIT/ML VIAL SQ SCH (17:43)
[2020-08-27] MEDS: traZODone 50 MG TABLET PO SCH (21:17)
[2020-08-27] MEDS: ARIPiprazole 2 MG TABLET PO SCH (21:17)
[2020-08-28] MEDS: *HR* Heparin 5,000 UNIT/ML VIAL SQ SCH ×2 (05:35→17:55)
[2020-08-28 06:23] LABS: Hematocrit 32.9 % (37.5-50.1); Hemoglobin 11.1 g/dL (12.9-16.9); Immature Platelets 1.8 % (1.1-6.1); Mean Corpuscular HGB Conc 33.7 g/dL (31.6-35.5); Mean Corpuscular Hemoglobin 30.4 pg (28.0-33.3); Mean Corpuscular Volume 90.1 fL (83.0-100.0); Mean Platelet Volume 9.3 fL (9.4-12.4); Red Blood Count 3.65 M/mcL (4.19-5.50); Red Cell Distribution Width 14.3 % (11.5-14.5)
[2020-08-28 06:41] LABS: Calcium 9.8 mg/dL (8.6-10.3); Potassium 4.3 mEq/L (3.5-5.1)
[2020-08-28] MEDS: Budesonide/Formoterol 160/4.5 1 PUFF INH IH SCH ×2 (07:49→20:30)
[2020-08-28] MEDS: Insulin LISPRO 300 UNITS/3 ML VIAL SUBQ SCH ×4 (08:02→20:52)
[2020-08-28] MEDS: Cyanocobalamin (B-12) 1,000 MCG TABLET PO SCH (09:20)
[2020-08-28] MEDS: *HR* Acetylcysteine 20% 600 MG/3 ML ORAL SYRINGE PO SCH ×2 (09:20→21:04)
[2020-08-28] MEDS: Lactobacillus 1 EACH CAP.SPRINK PO SCH (09:20)
[2020-08-28] MEDS: Amoxicillin/Clavulanate 500 MG TABLET PO SCH ×2 (09:20→17:55)
[2020-08-28] MEDS: 0.9 % Sodium Chloride 1,000 ML IVC SCH (11:03)
[2020-08-28] MEDS: Ipratropium/Albuterol Neb 3 ML IH PRN (18:08)
[2020-08-28] MEDS: traZODone 50 MG TABLET PO SCH (21:04)
[2020-08-28] MEDS: ARIPiprazole 2 MG TABLET PO SCH (21:04)
[2020-08-29 01:26] LABS: Hematocrit 33.4 % (37.5-50.1); Hemoglobin 11.1 g/dL (12.9-16.9); Immature Platelets 2.9 % (1.1-6.1); Mean Corpuscular HGB Conc 33.2 g/dL (31.6-35.5); Mean Corpuscular Volume 90.3 fL (83.0-100.0); Mean Platelet Volume 9.8 fL (9.4-12.4); Red Blood Count 3.7 M/mcL (4.19-5.50); Red Cell Distribution Width 14.4 % (11.5-14.5); White Blood Count 6.5 K/mcL (4.3-11.1)
[2020-08-29 01:44] LABS: Calcium 9.7 mg/dL (8.6-10.3); Potassium 4.2 mEq/L (3.5-5.1)
[2020-08-29] MEDS: 0.9 % Sodium Chloride 1,000 ML IVC SCH (03:57)
[2020-08-29] MEDS: *HR* Heparin 5,000 UNIT/ML VIAL SQ SCH ×2 (05:48→17:22)
[2020-08-29] MEDS: Insulin LISPRO 300 UNITS/3 ML VIAL SUBQ SCH ×4 (07:23→21:27)
[2020-08-29] MEDS: Budesonide/Formoterol 160/4.5 1 PUFF INH IH SCH ×2 (07:49→20:03)
[2020-08-29] MEDS: Cyanocobalamin (B-12) 1,000 MCG TABLET PO SCH (10:10)
[2020-08-29] MEDS: Lactobacillus 1 EACH CAP.SPRINK PO SCH (10:10)
[2020-08-29] MEDS: *HR* Acetylcysteine 20% 600 MG/3 ML ORAL SYRINGE PO SCH ×2 (10:10→21:23)
[2020-08-29] MEDS: Amoxicillin 500 MG CAPSULE PO SCH ×2 (10:20→21:22)
[2020-08-29] MEDS: Ipratropium/Albuterol Neb 3 ML IH PRN ×2 (10:47→20:03)
[2020-08-29] MEDS: ARIPiprazole 2 MG TABLET PO SCH (21:23)
[2020-08-29] MEDS: traZODone 50 MG TABLET PO SCH (21:25)
[2020-08-30] MEDS: GuaiFENesin Liq 200 MG/10 ML UDC PO PRN ×3 (01:34→17:03)
[2020-08-30 04:47] LABS: Hematocrit 31.4 % (37.5-50.1); Hemoglobin 10.5 g/dL (12.9-16.9); Immature Platelets 3.6 % (1.1-6.1); Mean Corpuscular HGB Conc 33.4 g/dL (31.6-35.5); Mean Corpuscular Hemoglobin 30.1 pg (28.0-33.3); Mean Platelet Volume 10.5 fL (9.4-12.4); Red Blood Count 3.49 M/mcL (4.19-5.50); Red Cell Distribution Width 14.4 % (11.5-14.5)
[2020-08-30 05:02] LABS: Calcium 9.3 mg/dL (8.6-10.3); Potassium 4.2 mEq/L (3.5-5.1)
[2020-08-30] MEDS: *HR* Heparin 5,000 UNIT/ML VIAL SQ SCH ×2 (06:09→17:02)
[2020-08-30] MEDS: Budesonide/Formoterol 160/4.5 1 PUFF INH IH SCH ×2 (07:25→20:00)
[2020-08-30] MEDS: *HR* Acetylcysteine 20% 600 MG/3 ML ORAL SYRINGE PO SCH ×2 (09:20→20:16)
[2020-08-30] MEDS: Insulin LISPRO 300 UNITS/3 ML VIAL SUBQ SCH ×3 (09:20→17:03)
[2020-08-30] MEDS: Amoxicillin 500 MG CAPSULE PO SCH ×2 (09:20→20:14)
[2020-08-30] MEDS: Lactobacillus 1 EACH CAP.SPRINK PO SCH (09:20)
[2020-08-30] MEDS: Cyanocobalamin (B-12) 1,000 MCG TABLET PO SCH (09:20)
[2020-08-30 18:38] LABS: Adenovirus Not Detected (Not Detect); Bordetella Pertussis Not Detected (Not Detect); Chlamydophila pneumoniae Not Detected (Not Detect); Coronavirus 229E Not Detected (Not Detect); Coronavirus HKU1 Not Detected (Not Detect); Coronavirus NL63 Not Detected (Not Detect); Coronavirus OC43 Not Detected (Not Detect); Human Metapneumovirus Not Detected (Not Detect); Human Rhinovirus/Enterovirus Not Detected (Not Detect); Influenza A Subtype 2009 H1 Not Detected (Not Detect); Influenza B Not Detected (Not Detect); Mycoplasma pneumoniae Not Detected (Not Detect); Parainfluenza Virus 1 Not Detected (Not Detect); Parainfluenza Virus 2 Not Detected (Not Detect); Parainfluenza Virus 3 Not Detected (Not Detect); Parainfluenza Virus 4 Not Detected (Not Detect); Respiratory Syncytial Virus Not Detected (Not Detect); SARS-CoV-2 Not Detected (Not Detect)
[2020-08-30 19:16] VITALS: BP 156/78
[2020-08-30] MEDS: Ipratropium/Albuterol Neb 3 ML IH PRN (20:00)
[2020-08-30] MEDS: ARIPiprazole 2 MG TABLET PO SCH (20:13)
[2020-08-30] MEDS: traZODone 50 MG TABLET PO SCH (20:16)
== END 2020-08-30 20:40 | disposition other institution (70) | DRG 683 ==
LOC: EMEROOARM 14:28 → 3ANU 14:28 → SUATTDRO 17:18 → 3ANU 17:54
PROVIDERS: ADMIT Family Medicine; ATTEND Family Medicine

== ENCOUNTER 2020-09-22 17:45 | Inpatient (IN) ==
[2020-09-22] MEDS ORDERED: Ondansetron ODT 4 MG TAB.RAPDIS SL PRN (20:45)
[2020-09-22] MEDS ORDERED: Naloxone 0.4 MG/ML INJ IVP PRN (20:45)
[2020-09-22] MEDS ORDERED: Dextrose Gel 15 GM/37.5 ML TUBE PO PRN ×2 (20:50)
[2020-09-22] MEDS ORDERED: *HR* Dextrose 50 % in Water (Vial) 50 ML VIAL IVP PRN (20:50)
[2020-09-22] MEDS ORDERED: D5% in Water 1,000 ML IVC PRN (20:50)
[2020-09-23 01:17] LABS: Basophils % 0.2 %; Eosinophils # 0.4 K/mcL (0.0-0.6); Hematocrit 30.3 % (37.5-50.1); Immature Granulocytes % 5.7 % (0-4); Lymphocytes # 0.9 K/mcL (0.6-4.6); Lymphocytes % 10.6 %; Mean Corpuscular Hemoglobin 30.5 pg (28.0-33.3); Mean Corpuscular Volume 92.4 fL (83.0-100.0); Monocytes # 1.8 K/mcL (0.0-1.3); Monocytes % 20.4 %; Neutrophils # 5.2 K/mcL (1.6-8.9); Platelet Count 105 K/mcL (140-400); Red Blood Count 3.28 M/mcL (4.19-5.50); Red Cell Distribution Width 14.4 % (11.5-14.5); Segmented Neutrophils % 59.1 %; White Blood Count 8.8 K/mcL (4.3-11.1)
[2020-09-23 01:25] LABS: INR 1.3; Prothrombin Time 14.5 Seconds (9.4-12.1)
[2020-09-23 01:36] LABS: Platelet Estimate Slight Decrease (Normal); Reactive Lymphocytes Present (Not Present)
[2020-09-23 01:37] LABS: Anisocytosis 1+ (Not Present); Smudge Cells Present (Not Present)
[2020-09-23 01:40] LABS: BUN/Creatinine Ratio 35 (6-26); Blood Urea Nitrogen 47 mg/dL (8-23); Calcium 10.1 mg/dL (8.6-10.3); Carbon Dioxide 26 mEq/L (23-29); Chloride 98 mEq/L (98-107); Glucose 129 mg/dL (70-105); Magnesium 2.1 mg/dL (1.6-2.6); Osmolality,Calculated 290 (280-300); Potassium 4.7 mEq/L (3.5-5.1); Sodium 133 mEq/L (136-145); eGFR For African Americans > 60 (> 60); eGFR For Non-African Americans 51 (> 60)
[2020-09-23] MEDS: Insulin LISPRO 300 UNITS/3 ML VIAL SUBQ SCH ×3 (08:05→17:42)
[2020-09-23] MEDS ORDERED: Melatonin 3 MG TABLET PO PRN (10:26)
[2020-09-23 11:11] LABS: Bilirubin,Urine Negative (Negative); Blood,Urine Trace (Negative); Clarity,Urine Clear (Clear); Color,Urine Light-Yellow (Yellow); Glucose,Urine (UA) Normal (Normal); Hyaline Casts,Urine Few per lpf (None Seen); Ketones,Urine Negative (Negative); Leukocyte Esterase,Urine Negative (Negative); Mucus,Urine Few per lpf (None-Few); Nitrite,Urine Negative (Negative); Protein,Urine 30 mg/dL (Neg-Trace); Specific Gravity,Urine 1.015 (1.010-1.025); Squamous Epithelial Cell,Urine Few per hpf (None-Few); Urobilinogen,Urine Normal (Normal)
[2020-09-23] MEDS: Ipratropium/Albuterol Neb 3 ML IH SCH ×3 (12:08→22:07)
[2020-09-23] MEDS: Lactulose Oral Soln 20 GM/30 ML UDC PO SCH ×2 (15:41→20:49)
[2020-09-23] MEDS ORDERED: cefTRIAXone 1,000 MG in Water for inj. (sterile) 10 ML IVP SCH (17:00)
[2020-09-23] MEDS: traZODone 50 MG TABLET PO SCH (20:48)
[2020-09-23] MEDS: ARIPiprazole 2 MG TABLET PO SCH (20:49)
[2020-09-23] MEDS: Budesonide/Formoterol 160/4.5 1 PUFF INH IH SCH (22:08)
[2020-09-24] MEDS: GuaiFENesin Liq 200 MG/10 ML UDC PO PRN (00:46)
[2020-09-24] MEDS: Ipratropium/Albuterol Neb 3 ML IH SCH ×4 (03:59→22:10)
[2020-09-24 06:07] LABS: Basophils % 0.2 %; Eosinophils # 0.4 K/mcL (0.0-0.6); Eosinophils % 4.3 %; Hematocrit 30.9 % (37.5-50.1); Hemoglobin 10.4 g/dL (12.9-16.9); Immature Granulocytes % 2.4 % (0-4); Lymphocytes % 10.1 %; Mean Corpuscular HGB Conc 33.7 g/dL (31.6-35.5); Mean Corpuscular Hemoglobin 30.5 pg (28.0-33.3); Mean Corpuscular Volume 90.6 fL (83.0-100.0); Mean Platelet Volume 10.2 fL (9.4-12.4); Monocytes # 2.1 K/mcL (0.0-1.3); Monocytes % 22.1 %; Neutrophils # 5.8 K/mcL (1.6-8.9); Platelet Count 112 K/mcL (140-400); Red Blood Count 3.41 M/mcL (4.19-5.50); Red Cell Distribution Width 14.6 % (11.5-14.5); Segmented Neutrophils % 60.9 %; White Blood Count 9.5 K/mcL (4.3-11.1)
[2020-09-24 06:26] LABS: BUN/Creatinine Ratio 34 (6-26); Blood Urea Nitrogen 45 mg/dL (8-23); Calcium 9.9 mg/dL (8.6-10.3); Carbon Dioxide 23 mEq/L (23-29); Chloride 99 mEq/L (98-107); Glucose 125 mg/dL (70-105); Osmolality,Calculated 285 (280-300); Potassium 4.6 mEq/L (3.5-5.1); Sodium 131 mEq/L (136-145); eGFR For African Americans > 60 (> 60); eGFR For Non-African Americans 53 (> 60)
[2020-09-24] MEDS: Insulin LISPRO 300 UNITS/3 ML VIAL SUBQ SCH ×3 (07:58→16:23)
[2020-09-24] MEDS: Venlafaxine XR (24 HR) 37.5 MG CAP.ER.24H PO SCH (07:58)
[2020-09-24] MEDS: Cyanocobalamin (B-12) 1,000 MCG TABLET PO SCH (07:58)
[2020-09-24] MEDS: Finasteride 5 MG TABLET PO SCH (07:58)
[2020-09-24] MEDS: Lactulose Oral Soln 20 GM/30 ML UDC PO SCH ×3 (07:58→20:20)
[2020-09-24] MEDS: Lactobacillus 1 EACH CAP.SPRINK PO SCH (07:58)
[2020-09-24] MEDS: Triamcinolone Acet 0.1% CRM 15 GM TUBE TP SCH (07:59)
[2020-09-24] MEDS ORDERED: Saline Nasal Spray 44 ML BOTTLE NS PRN (09:00)
[2020-09-24] MEDS: Budesonide/Formoterol 160/4.5 1 PUFF INH IH SCH ×2 (10:24→22:11)
[2020-09-24] MEDS: traZODone 50 MG TABLET PO SCH (20:20)
[2020-09-24] MEDS: ARIPiprazole 2 MG TABLET PO SCH (20:20)
[2020-09-24] MEDS: *HR* LORazepam 0.5 MG TABLET PO PRN (20:21)
[2020-09-25] MEDS: Ipratropium/Albuterol Neb 3 ML IH SCH ×3 (04:19→15:47)
[2020-09-25] MEDS: Insulin LISPRO 300 UNITS/3 ML VIAL SUBQ SCH ×3 (07:42→17:39)
[2020-09-25] MEDS: Lactobacillus 1 EACH CAP.SPRINK PO SCH (07:42)
[2020-09-25] MEDS: Triamcinolone Acet 0.1% CRM 15 GM TUBE TP SCH (07:42)
[2020-09-25] MEDS: Cyanocobalamin (B-12) 1,000 MCG TABLET PO SCH (07:42)
[2020-09-25] MEDS: Venlafaxine XR (24 HR) 37.5 MG CAP.ER.24H PO SCH (07:42)
[2020-09-25] MEDS: Finasteride 5 MG TABLET PO SCH (07:42)
[2020-09-25] MEDS: Lactulose Oral Soln 20 GM/30 ML UDC PO SCH ×3 (07:42→20:51)
[2020-09-25 07:50] LABS: Hematocrit 33.9 % (37.5-50.1); Lymphocytes # 0.7 K/mcL (0.6-4.6); Mean Corpuscular HGB Conc 32.4 g/dL (31.6-35.5); Mean Corpuscular Hemoglobin 30.4 pg (28.0-33.3); Mean Corpuscular Volume 93.6 fL (83.0-100.0); Mean Platelet Volume 10.4 fL (9.4-12.4); Platelet Count 104 K/mcL (140-400); Red Blood Count 3.62 M/mcL (4.19-5.50); Red Cell Distribution Width 14.7 % (11.5-14.5); White Blood Count 10.3 K/mcL (4.3-11.1)
[2020-09-25] MEDS: GuaiFENesin Liq 200 MG/10 ML UDC PO PRN ×3 (07:50→20:50)
[2020-09-25 08:11] LABS: Calcium 10.1 mg/dL (8.6-10.3); Potassium 4.3 mEq/L (3.5-5.1)
[2020-09-25 08:26] LABS: Eosinophils # 0.3 K/mcL (0.0-0.6); Monocytes # 1.3 K/mcL (0.0-1.3); Neutrophils # 7.8 K/mcL (1.6-8.9); Platelet Estimate Slight Decrease (Normal); Reactive Lymphocytes Present (Not Present)
[2020-09-25] MEDS: Budesonide/Formoterol 160/4.5 1 PUFF INH IH SCH ×2 (09:39→21:14)
[2020-09-25] MEDS ORDERED: 0.9 % Sodium Chloride 250 ML IVC SCH (11:30)
[2020-09-25] MEDS: Acetaminophen 325 MG TABLET PO PRN ×2 (13:38→22:33)
[2020-09-25] MEDS: *HR* LORazepam 0.5 MG TABLET PO PRN (20:50)
[2020-09-25] MEDS: ARIPiprazole 2 MG TABLET PO SCH (20:50)
[2020-09-25] MEDS: traZODone 50 MG TABLET PO SCH (20:51)
[2020-09-25] MEDS: Levalbuterol Neb 0.63 MG/3 ML IH SCH (21:14)
[2020-09-25] MEDS: Piperacillin/Tazobactam 3.375 GM in 0.9 % Sodium Chloride Mini Bag 100 ML IVPB SCH (23:01)
[2020-09-26 02:55] LABS: Hematocrit 32.6 % (37.5-50.1); Hemoglobin 10.8 g/dL (12.9-16.9); Mean Corpuscular HGB Conc 33.1 g/dL (31.6-35.5); Mean Corpuscular Hemoglobin 30.6 pg (28.0-33.3); Mean Corpuscular Volume 92.4 fL (83.0-100.0); Mean Platelet Volume 10.1 fL (9.4-12.4); Platelet Count 104 K/mcL (140-400); Red Blood Count 3.53 M/mcL (4.19-5.50); Red Cell Distribution Width 14.9 % (11.5-14.5); White Blood Count 10.6 K/mcL (4.3-11.1)
[2020-09-26 03:06] LABS: INR 1.4; Prothrombin Time 15.8 Seconds (9.4-12.1)
[2020-09-26 03:16] LABS: Calcium 9.8 mg/dL (8.6-10.3); Potassium 5.1 mEq/L (3.5-5.1)
[2020-09-26] MEDS: Levalbuterol Neb 0.63 MG/3 ML IH SCH ×4 (03:18→22:05)
[2020-09-26 03:22] LABS: Lymphocytes # 0.2 K/mcL (0.6-4.6); Monocytes # 1.5 K/mcL (0.0-1.3); Neutrophils # 8.3 K/mcL (1.6-8.9)
[2020-09-26 03:23] LABS: Anisocytosis 1+ (Not Present); Platelet Estimate Slight Decrease (Normal); Toxic Granulation Present (Not Present)
[2020-09-26] MEDS: Piperacillin/Tazobactam 3.375 GM in 0.9 % Sodium Chloride Mini Bag 100 ML IVPB SCH ×3 (06:09→23:07)
[2020-09-26] MEDS ORDERED: 0.9 % Sodium Chloride 1,000 ML IVC SCH (07:30)
[2020-09-26] MEDS: Insulin LISPRO 300 UNITS/3 ML VIAL SUBQ SCH ×3 (09:07→17:02)
[2020-09-26 09:15] LABS: Uric Acid 5.8 mg/dL (2.3-7.6)
[2020-09-26] MEDS: Finasteride 5 MG TABLET PO SCH (09:19)
[2020-09-26] MEDS: Lactulose Oral Soln 20 GM/30 ML UDC PO SCH ×3 (09:19→20:44)
[2020-09-26] MEDS: Venlafaxine XR (24 HR) 37.5 MG CAP.ER.24H PO SCH (09:19)
[2020-09-26] MEDS: Lactobacillus 1 EACH CAP.SPRINK PO SCH (09:19)
[2020-09-26] MEDS: Triamcinolone Acet 0.1% CRM 15 GM TUBE TP SCH (09:19)
[2020-09-26] MEDS: Cyanocobalamin (B-12) 1,000 MCG TABLET PO SCH (09:19)
[2020-09-26 09:38] LABS: Hepatitis B Surface Antigen Nonreactive (Nonreactive)
[2020-09-26 10:07] LABS: Hepatitis B Core IgM Nonreactive (Nonreactive)
[2020-09-26 10:08] LABS: Hepatitis C Virus Antibody Nonreactive (Nonreactive)
[2020-09-26 10:09] LABS: Hepatitis A Antibody IgM Nonreactive (Nonreactive)
[2020-09-26] MEDS: Budesonide/Formoterol 160/4.5 1 PUFF INH IH SCH ×2 (10:52→22:06)
[2020-09-26] MEDS: 0.9 % Sodium Chloride 1,000 ML IVC SCH ×2 (12:40→23:07)
[2020-09-26] MEDS: traZODone 50 MG TABLET PO SCH (20:44)
[2020-09-26] MEDS: ARIPiprazole 2 MG TABLET PO SCH (20:44)
[2020-09-27] MEDS: Levalbuterol Neb 0.63 MG/3 ML IH SCH ×4 (03:57→22:53)
[2020-09-27] MEDS: Piperacillin/Tazobactam 3.375 GM in 0.9 % Sodium Chloride Mini Bag 100 ML IVPB SCH ×3 (05:09→22:20)
[2020-09-27 06:04] LABS: Hemoglobin 9.4 g/dL (12.9-16.9)
[2020-09-27 06:07] LABS: Hematocrit 28.1 % (37.5-50.1); Immature Platelets 3.4 % (1.1-6.1); Mean Corpuscular HGB Conc 33.5 g/dL (31.6-35.5); Mean Corpuscular Hemoglobin 30.3 pg (28.0-33.3); Mean Corpuscular Volume 90.6 fL (83.0-100.0); Mean Platelet Volume 10.4 fL (9.4-12.4); Red Cell Distribution Width 14.9 % (11.5-14.5); White Blood Count 8.3 K/mcL (4.3-11.1)
[2020-09-27 06:17] LABS: Platelet Count 87 K/mcL (140-400)
[2020-09-27 06:23] LABS: Potassium 4.8 mEq/L (3.5-5.1)
[2020-09-27 06:41] LABS: Eosinophils # 1.2 K/mcL (0.0-0.6); Lymphocytes # 0.5 K/mcL (0.6-4.6); Neutrophils # 4.7 K/mcL (1.6-8.9); Platelet Estimate Decreased (Normal)
[2020-09-27] MEDS: Insulin LISPRO 300 UNITS/3 ML VIAL SUBQ SCH ×3 (07:30→17:40)
[2020-09-27] MEDS: Cyanocobalamin (B-12) 1,000 MCG TABLET PO SCH (09:23)
[2020-09-27] MEDS: Lactobacillus 1 EACH CAP.SPRINK PO SCH (09:23)
[2020-09-27] MEDS: Triamcinolone Acet 0.1% CRM 15 GM TUBE TP SCH (09:23)
[2020-09-27] MEDS: Finasteride 5 MG TABLET PO SCH (09:23)
[2020-09-27] MEDS: Venlafaxine XR (24 HR) 37.5 MG CAP.ER.24H PO SCH (09:23)
[2020-09-27] MEDS: Lactulose Oral Soln 20 GM/30 ML UDC PO SCH ×3 (09:23→20:28)
[2020-09-27] MEDS: Budesonide/Formoterol 160/4.5 1 PUFF INH IH SCH ×2 (09:46→22:53)
[2020-09-27] MEDS ORDERED: Sodium Bicarbonate 75 MEQ in 0.45 % Sodium Chloride 1,000 ML IVC SCH (10:00)
[2020-09-27] MEDS ORDERED: Levalbuterol Neb 1.25 MG/3 ML ONE (15:28)
[2020-09-27 17:44] LABS: Sodium, Urine 40.5 mEq/L
[2020-09-27] MEDS: traZODone 50 MG TABLET PO SCH (20:28)
[2020-09-27] MEDS: ARIPiprazole 2 MG TABLET PO SCH (20:28)
[2020-09-28] MEDS: Levalbuterol Neb 0.63 MG/3 ML IH SCH ×4 (03:41→22:45)
[2020-09-28] MEDS: Piperacillin/Tazobactam 3.375 GM in 0.9 % Sodium Chloride Mini Bag 100 ML IVPB SCH ×3 (05:10→22:11)
[2020-09-28 06:37] LABS: Potassium 4.5 mEq/L (3.5-5.1)
[2020-09-28 06:40] LABS: Hematocrit 27.3 % (37.5-50.1); Hemoglobin 9.1 g/dL (12.9-16.9); Mean Corpuscular HGB Conc 33.3 g/dL (31.6-35.5); Mean Platelet Volume 10.2 fL (9.4-12.4)
[2020-09-28 06:42] LABS: Basophils % 0.3 %; Eosinophils # 0.3 K/mcL (0.0-0.6); Immature Granulocytes % 1.3 % (0-4); Immature Platelets 3.4 % (1.1-6.1); Lymphocytes # 0.7 K/mcL (0.6-4.6); Lymphocytes % 9.9 %; Mean Corpuscular Hemoglobin 30.3 pg (28.0-33.3); Monocytes # 1.6 K/mcL (0.0-1.3); Monocytes % 23.8 %; Neutrophils # 4.1 K/mcL (1.6-8.9); Red Cell Distribution Width 14.9 % (11.5-14.5); Segmented Neutrophils % 59.7 %; White Blood Count 6.8 K/mcL (4.3-11.1)
[2020-09-28 06:49] LABS: Platelet Count 81 K/mcL (140-400)
[2020-09-28] MEDS: Lactulose Oral Soln 20 GM/30 ML UDC PO SCH ×3 (08:04→19:42)
[2020-09-28] MEDS: Lactobacillus 1 EACH CAP.SPRINK PO SCH (08:08)
[2020-09-28] MEDS: Insulin LISPRO 300 UNITS/3 ML VIAL SUBQ SCH ×3 (08:08→16:58)
[2020-09-28] MEDS: Triamcinolone Acet 0.1% CRM 15 GM TUBE TP SCH (08:08)
[2020-09-28] MEDS: Cyanocobalamin (B-12) 1,000 MCG TABLET PO SCH (08:08)
[2020-09-28] MEDS: Finasteride 5 MG TABLET PO SCH (08:08)
[2020-09-28] MEDS: Venlafaxine XR (24 HR) 37.5 MG CAP.ER.24H PO SCH (08:08)
[2020-09-28] MEDS: Budesonide/Formoterol 160/4.5 1 PUFF INH IH SCH ×2 (10:31→22:45)
[2020-09-28] MEDS: traZODone 50 MG TABLET PO SCH (19:44)
[2020-09-28] MEDS: ARIPiprazole 2 MG TABLET PO SCH (19:44)
[2020-09-29] MEDS: Levalbuterol Neb 0.63 MG/3 ML IH SCH ×4 (03:30→23:40)
[2020-09-29 04:17] LABS: Hemoglobin 8.7 g/dL (12.9-16.9); Mean Corpuscular HGB Conc 33.5 g/dL (31.6-35.5); Mean Corpuscular Hemoglobin 31.1 pg (28.0-33.3); Mean Corpuscular Volume 92.9 fL (83.0-100.0); Mean Platelet Volume 10.8 fL (9.4-12.4); Red Cell Distribution Width 14.6 % (11.5-14.5)
[2020-09-29 04:19] LABS: Platelet Count 80 K/mcL (140-400)
[2020-09-29 04:31] LABS: Calcium 8.4 mg/dL (8.6-10.3); Magnesium 1.9 mg/dL (1.6-2.6); Potassium 4.3 mEq/L (3.5-5.1)
[2020-09-29 04:34] LABS: Albumin 3.2 g/dL (3.5-5.7); Albumin/Globulin Ratio 1.3 (1.1-2.2); Bilirubin,Direct 0.1 mg/dL (0.0-0.2); Bilirubin,Indirect 0.3 mg/dL (0.0-1.0); Bilirubin,Total 0.4 mg/dL (0.3-1.0); Globulin 2.5 g/dL (2.4-3.5); Total Protein 5.7 g/dL (6.4-8.9)
[2020-09-29] MEDS: Piperacillin/Tazobactam 3.375 GM in 0.9 % Sodium Chloride Mini Bag 100 ML IVPB SCH ×2 (06:17→15:02)
[2020-09-29] MEDS: Lactulose Oral Soln 20 GM/30 ML UDC PO SCH ×3 (08:14→19:29)
[2020-09-29] MEDS: Venlafaxine XR (24 HR) 37.5 MG CAP.ER.24H PO SCH (08:28)
[2020-09-29] MEDS: Insulin LISPRO 300 UNITS/3 ML VIAL SUBQ SCH ×3 (08:28→16:47)
[2020-09-29] MEDS: Triamcinolone Acet 0.1% CRM 15 GM TUBE TP SCH (08:28)
[2020-09-29] MEDS: Cyanocobalamin (B-12) 1,000 MCG TABLET PO SCH (08:28)
[2020-09-29] MEDS: Lactobacillus 1 EACH CAP.SPRINK PO SCH (08:28)
[2020-09-29] MEDS: Finasteride 5 MG TABLET PO SCH (08:28)
[2020-09-29] MEDS ORDERED: 0.9 % Sodium Chloride 1,000 ML IVC SCH (10:30)
[2020-09-29] MEDS: Budesonide/Formoterol 160/4.5 1 PUFF INH IH SCH ×2 (11:11→23:40)
[2020-09-29] MEDS: ARIPiprazole 2 MG TABLET PO SCH (19:36)
[2020-09-29] MEDS: traZODone 50 MG TABLET PO SCH (19:37)
[2020-09-30 02:38] LABS: Calcium 8.8 mg/dL (8.6-10.3); Potassium 4.3 mEq/L (3.5-5.1)
[2020-09-30] MEDS: Levalbuterol Neb 0.63 MG/3 ML IH SCH ×4 (04:09→22:43)
[2020-09-30] MEDS: Lactulose Oral Soln 20 GM/30 ML UDC PO SCH ×3 (07:42→19:41)
[2020-09-30] MEDS: Finasteride 5 MG TABLET PO SCH (07:57)
[2020-09-30] MEDS: Venlafaxine XR (24 HR) 37.5 MG CAP.ER.24H PO SCH (07:57)
[2020-09-30] MEDS: Insulin LISPRO 300 UNITS/3 ML VIAL SUBQ SCH ×3 (07:57→16:44)
[2020-09-30] MEDS: Cyanocobalamin (B-12) 1,000 MCG TABLET PO SCH (07:57)
[2020-09-30] MEDS: Lactobacillus 1 EACH CAP.SPRINK PO SCH (07:57)
[2020-09-30] MEDS: Triamcinolone Acet 0.1% CRM 15 GM TUBE TP SCH (07:58)
[2020-09-30] MEDS: Budesonide/Formoterol 160/4.5 1 PUFF INH IH SCH ×2 (11:36→22:43)
[2020-09-30] MEDS: traZODone 50 MG TABLET PO SCH (20:26)
[2020-09-30] MEDS: ARIPiprazole 2 MG TABLET PO SCH (20:26)
[2020-10-01] MEDS: GuaiFENesin Liq 200 MG/10 ML UDC PO PRN (02:54)
[2020-10-01] MEDS: Levalbuterol Neb 0.63 MG/3 ML IH SCH ×4 (04:34→22:23)
[2020-10-01] MEDS: Insulin LISPRO 300 UNITS/3 ML VIAL SUBQ SCH ×3 (08:06→16:47)
[2020-10-01] MEDS: Finasteride 5 MG TABLET PO SCH (08:23)
[2020-10-01] MEDS: Lactulose Oral Soln 20 GM/30 ML UDC PO SCH ×3 (08:24→20:41)
[2020-10-01] MEDS: Venlafaxine XR (24 HR) 37.5 MG CAP.ER.24H PO SCH (08:26)
[2020-10-01] MEDS: Cyanocobalamin (B-12) 1,000 MCG TABLET PO SCH (08:33)
[2020-10-01] MEDS: Lactobacillus 1 EACH CAP.SPRINK PO SCH (08:40)
[2020-10-01 09:22] LABS: Basophils % 0.1 %
[2020-10-01 09:24] LABS: Eosinophils # 0.3 K/mcL (0.0-0.6); Eosinophils % 4.5 %; Hematocrit 28.1 % (37.5-50.1); Hemoglobin 9.3 g/dL (12.9-16.9); Immature Granulocytes % 10.5 % (0-4); Immature Platelets 2.8 % (1.1-6.1); Lymphocytes # 0.8 K/mcL (0.6-4.6); Lymphocytes % 10.5 %; Mean Corpuscular HGB Conc 33.1 g/dL (31.6-35.5); Mean Corpuscular Hemoglobin 30.5 pg (28.0-33.3); Mean Corpuscular Volume 92.1 fL (83.0-100.0); Mean Platelet Volume 9.7 fL (9.4-12.4); Monocytes # 1.2 K/mcL (0.0-1.3); Monocytes % 16.8 %; Neutrophils # 4.3 K/mcL (1.6-8.9); Platelet Count 78 K/mcL (140-400); Red Blood Count 3.05 M/mcL (4.19-5.50); Red Cell Distribution Width 14.6 % (11.5-14.5); Segmented Neutrophils % 57.6 %; White Blood Count 7.4 K/mcL (4.3-11.1)
[2020-10-01 09:38] LABS: Calcium 9.1 mg/dL (8.6-10.3); Potassium 4.6 mEq/L (3.5-5.1)
[2020-10-01] MEDS: Budesonide/Formoterol 160/4.5 1 PUFF INH IH SCH ×2 (11:26→22:23)
[2020-10-01] MEDS: Triamcinolone Acet 0.1% CRM 15 GM TUBE TP SCH (12:33)
[2020-10-01] MEDS: ARIPiprazole 2 MG TABLET PO SCH (20:40)
[2020-10-01] MEDS: *HR* LORazepam 0.5 MG TABLET PO PRN (20:41)
[2020-10-01] MEDS: Acetaminophen 325 MG TABLET PO PRN (20:41)
[2020-10-01] MEDS: traZODone 50 MG TABLET PO SCH (20:41)
[2020-10-02] MEDS: Levalbuterol Neb 0.63 MG/3 ML IH SCH ×4 (03:55→22:23)
[2020-10-02] MEDS: Venlafaxine XR (24 HR) 37.5 MG CAP.ER.24H PO SCH (07:47)
[2020-10-02] MEDS: Lactobacillus 1 EACH CAP.SPRINK PO SCH (07:47)
[2020-10-02] MEDS: Finasteride 5 MG TABLET PO SCH (07:48)
[2020-10-02] MEDS: Insulin LISPRO 300 UNITS/3 ML VIAL SUBQ SCH ×3 (07:48→16:40)
[2020-10-02] MEDS: Lactulose Oral Soln 20 GM/30 ML UDC PO SCH ×3 (07:48→20:13)
[2020-10-02] MEDS: Cyanocobalamin (B-12) 1,000 MCG TABLET PO SCH (07:48)
[2020-10-02 09:06] LABS: Red Cell Distribution Width 14.6 % (11.5-14.5)
[2020-10-02 09:08] LABS: Basophils % 0.4 %; Eosinophils # 0.4 K/mcL (0.0-0.6); Hematocrit 30.5 % (37.5-50.1); Hemoglobin 9.9 g/dL (12.9-16.9); Immature Granulocytes % 3.4 % (0-4); Immature Platelets 2.9 % (1.1-6.1); Lymphocytes # 0.8 K/mcL (0.6-4.6); Lymphocytes % 9.8 %; Mean Corpuscular HGB Conc 32.5 g/dL (31.6-35.5); Mean Corpuscular Hemoglobin 29.9 pg (28.0-33.3); Mean Corpuscular Volume 92.1 fL (83.0-100.0); Mean Platelet Volume 9.9 fL (9.4-12.4); Monocytes # 1.2 K/mcL (0.0-1.3); Monocytes % 15.4 %; Neutrophils # 5.2 K/mcL (1.6-8.9); Platelet Count 90 K/mcL (140-400); Red Blood Count 3.31 M/mcL (4.19-5.50); White Blood Count 7.9 K/mcL (4.3-11.1)
[2020-10-02 09:26] LABS: Calcium 9.4 mg/dL (8.6-10.3); Potassium 4.3 mEq/L (3.5-5.1)
[2020-10-02] MEDS: Budesonide/Formoterol 160/4.5 1 PUFF INH IH SCH ×2 (11:13→22:23)
[2020-10-02] MEDS: Triamcinolone Acet 0.1% CRM 15 GM TUBE TP SCH (13:04)
[2020-10-02] MEDS: *HR* LORazepam 0.5 MG TABLET PO PRN (20:13)
[2020-10-02] MEDS: ARIPiprazole 2 MG TABLET PO SCH (20:13)
[2020-10-02] MEDS: traZODone 50 MG TABLET PO SCH (20:13)
[2020-10-03 01:40] LABS: Calcium 8.9 mg/dL (8.6-10.3); Potassium 4.3 mEq/L (3.5-5.1)
[2020-10-03] MEDS: Levalbuterol Neb 0.63 MG/3 ML IH SCH ×4 (03:46→21:31)
[2020-10-03] MEDS: Insulin LISPRO 300 UNITS/3 ML VIAL SUBQ SCH ×3 (07:43→17:00)
[2020-10-03] MEDS: Lactulose Oral Soln 20 GM/30 ML UDC PO SCH ×3 (08:09→21:22)
[2020-10-03] MEDS: Finasteride 5 MG TABLET PO SCH (08:09)
[2020-10-03] MEDS: Venlafaxine XR (24 HR) 37.5 MG CAP.ER.24H PO SCH (08:09)
[2020-10-03] MEDS: Lactobacillus 1 EACH CAP.SPRINK PO SCH (08:09)
[2020-10-03] MEDS: Cyanocobalamin (B-12) 1,000 MCG TABLET PO SCH (08:09)
[2020-10-03] MEDS: Triamcinolone Acet 0.1% CRM 15 GM TUBE TP SCH (08:10)
[2020-10-03] MEDS: Budesonide/Formoterol 160/4.5 1 PUFF INH IH SCH ×2 (10:24→21:32)
[2020-10-03] MEDS: ARIPiprazole 2 MG TABLET PO SCH (21:22)
[2020-10-03] MEDS: traZODone 50 MG TABLET PO SCH (21:22)
[2020-10-04] MEDS: Levalbuterol Neb 0.63 MG/3 ML IH SCH ×2 (03:31→10:05)
[2020-10-04 07:24] VITALS: BP 146/70
[2020-10-04] MEDS: Insulin LISPRO 300 UNITS/3 ML VIAL SUBQ SCH ×2 (07:44→13:12)
[2020-10-04] MEDS: Venlafaxine XR (24 HR) 37.5 MG CAP.ER.24H PO SCH (07:56)
[2020-10-04] MEDS: Finasteride 5 MG TABLET PO SCH (07:56)
[2020-10-04] MEDS: Cyanocobalamin (B-12) 1,000 MCG TABLET PO SCH (07:56)
[2020-10-04] MEDS: Lactobacillus 1 EACH CAP.SPRINK PO SCH (07:56)
[2020-10-04] MEDS: Triamcinolone Acet 0.1% CRM 15 GM TUBE TP SCH (07:57)
[2020-10-04] MEDS: Lactulose Oral Soln 20 GM/30 ML UDC PO SCH (08:01)
[2020-10-04] MEDS: Budesonide/Formoterol 160/4.5 1 PUFF INH IH SCH (10:04)
== END 2020-10-04 13:45 | disposition hospice, home (50) | DRG 871 ==
LOC: 3BNU → SUATTDRO 19:33
PROVIDERS: ADMIT Family Medicine; ATTEND Internal Medicine

== ENCOUNTER 2020-10-22 10:32 | Observation (INO) ==
[2020-10-22] MEDS ORDERED: 0.9 % Sodium Chloride 1,000 ML IVC ONE ×2 (11:06→11:47)
[2020-10-22] MEDS ORDERED: Isovue-370 500 ML BOTTLE IVP ONE (11:09)
[2020-10-22] MEDS ORDERED: Piperacillin/Tazobactam 3.375 GM in 0.9 % Sodium Chloride Mini Bag 100 ML IVPB ONE (11:12)
[2020-10-22 11:28] LABS: Basophils % 0.2 %; Eosinophils # 0.5 K/mcL (0.0-0.6); Eosinophils % 5.5 %; Hematocrit 31.6 % (37.5-50.1); Hemoglobin 10.3 g/dL (12.9-16.9); Immature Granulocytes % 4.2 % (0-4); Lymphocytes # 0.9 K/mcL (0.6-4.6); Lymphocytes % 10.5 %; Mean Corpuscular HGB Conc 32.6 g/dL (31.6-35.5); Mean Corpuscular Hemoglobin 30.1 pg (28.0-33.3); Mean Corpuscular Volume 92.4 fL (83.0-100.0); Mean Platelet Volume 10.4 fL (9.4-12.4); Monocytes # 1.2 K/mcL (0.0-1.3); Monocytes % 14.7 %; Neutrophils # 5.3 K/mcL (1.6-8.9); Red Blood Count 3.42 M/mcL (4.19-5.50); Red Cell Distribution Width 14.9 % (11.5-14.5); Segmented Neutrophils % 64.9 %; White Blood Count 8.2 K/mcL (4.3-11.1)
[2020-10-22 11:29] LABS: Platelet Count 79 K/mcL (140-400)
[2020-10-22 11:30] LABS: Platelet Estimate Decreased (Normal)
[2020-10-22 11:49] LABS: Alanine Aminotransferase 38 Units/L (7-52); Albumin 3.9 g/dL (3.5-5.7); Albumin/Globulin Ratio 1.4 (1.1-2.2); Alkaline Phosphatase 223 Units/L (34-104); Aspartate Amino Transferase 18 Units/L (13-39); BUN/Creatinine Ratio 26 (6-26); Bilirubin,Direct 0.1 mg/dL (0.0-0.2); Bilirubin,Indirect 0.4 mg/dL (0.0-1.0); Bilirubin,Total 0.5 mg/dL (0.3-1.0); Blood Urea Nitrogen 82 mg/dL (8-23); Calcium 9.7 mg/dL (8.6-10.3); Carbon Dioxide 14 mEq/L (23-29); Chloride 106 mEq/L (98-107); Globulin 2.8 g/dL (2.4-3.5); Glucose 143 mg/dL (70-105); Lipase 62 Units/L (11-82); Osmolality,Calculated 303 (280-300); Potassium 4.2 mEq/L (3.5-5.1); Sodium 133 mEq/L (136-145); Total Protein 6.7 g/dL (6.4-8.9); Troponin I < 0.03 ng/mL (< 0.04); eGFR For African Americans 23 (> 60); eGFR For Non-African Americans 19 (> 60)
[2020-10-22] MEDS ORDERED: Vancomycin 1,250 MG/262.5 ML IV.SOLN IVPB ONE (12:00)
[2020-10-22 13:57] LABS: Bacteria,Urine Few per hpf (None-Few); Bilirubin,Urine Negative (Negative); Blood,Urine Trace (Negative); Clarity,Urine Turbid (Clear); Color,Urine Light-Yellow (Yellow); Glucose,Urine (UA) Normal (Normal); Hyaline Casts,Urine Few per lpf (None Seen); Ketones,Urine Negative (Negative); Leukocyte Esterase,Urine Large (Negative); Mucus,Urine Few per lpf (None-Few); Nitrite,Urine Negative (Negative); Protein,Urine 30 mg/dL (Neg-Trace); RBC,Urine 15-30 per hpf (0-3); Squamous Epithelial Cell,Urine Few per hpf (None-Few); Urobilinogen,Urine Normal (Normal); WBC,Urine TNTC per hpf (0-3)
[2020-10-22] MEDS ORDERED: Naloxone 0.4 MG/ML INJ IVP PRN (14:34)
[2020-10-22] MEDS ORDERED: Ondansetron 4 MG/2 ML VIAL IVP PRN (14:34)
[2020-10-22 15:03] LABS: Magnesium 1.9 mg/dL (1.6-2.6)
[2020-10-22] MEDS ORDERED: Haloperidol Oral Conc 10 MG/5 ML UDC PO PRN (15:06)
[2020-10-22] MEDS ORDERED: Nitroglycerin 0.4 MG TAB.SUBL SL PRN (15:06)
[2020-10-22] MEDS: 0.9 % Sodium Chloride 1,000 ML IVC SCH (15:16)
[2020-10-22] MEDS ORDERED: Dextrose Gel 15 GM/37.5 ML TUBE PO PRN ×2 (15:18)
[2020-10-22] MEDS ORDERED: *HR* Dextrose 50 % in Water (Vial) 50 ML VIAL IVP PRN (15:18)
[2020-10-22] MEDS ORDERED: D5% in Water 1,000 ML IVC PRN (15:18)
[2020-10-22] MEDS: Insulin LISPRO 300 UNITS/3 ML VIAL SUBQ SCH ×2 (16:13→21:34)
[2020-10-22] MEDS: Saline Nasal Spray 44 ML BOTTLE NS SCH (16:14)
[2020-10-22] MEDS: Ipratropium/Albuterol Neb 3 ML IH SCH ×2 (16:32→22:08)
[2020-10-22] MEDS: *HR* Heparin 5,000 UNIT/ML VIAL SQ SCH (17:37)
[2020-10-22] MEDS ORDERED: Lactulose Oral Soln 20 GM/30 ML UDC PO SCH (21:00)
[2020-10-22] MEDS: Lactulose Oral Soln 20 GM/30 ML UDC PO SCH (21:30)
[2020-10-22] MEDS: ARIPiprazole 2 MG TABLET PO SCH (21:33)
[2020-10-22] MEDS: traZODone 50 MG TABLET PO SCH (21:33)
[2020-10-22] MEDS: Budesonide/Formoterol 160/4.5 1 PUFF INH IH SCH (22:08)
[2020-10-23] MEDS: Piperacillin/Tazobactam 3.375 GM in 0.9 % Sodium Chloride Mini Bag 100 ML IVPB SCH ×2 (00:48→12:09)
[2020-10-23] MEDS: Ipratropium/Albuterol Neb 3 ML IH SCH ×4 (03:54→22:28)
[2020-10-23] MEDS: 0.9 % Sodium Chloride 1,000 ML IVC SCH ×2 (05:32→16:51)
[2020-10-23 05:41] LABS: Hematocrit 29.1 % (37.5-50.1); Mean Corpuscular Volume 94.5 fL (83.0-100.0); Red Blood Count 3.08 M/mcL (4.19-5.50)
[2020-10-23 05:43] LABS: Basophils % 0.3 %; Eosinophils # 0.5 K/mcL (0.0-0.6); Eosinophils % 7.3 %; Hemoglobin 9.4 g/dL (12.9-16.9); Immature Granulocytes % 3.9 % (0-4); Immature Platelets 2.1 % (1.1-6.1); Lymphocytes # 0.9 K/mcL (0.6-4.6); Mean Corpuscular HGB Conc 32.3 g/dL (31.6-35.5); Mean Corpuscular Hemoglobin 30.5 pg (28.0-33.3); Mean Platelet Volume 10.3 fL (9.4-12.4); Monocytes # 1.1 K/mcL (0.0-1.3); Monocytes % 17.6 %; Neutrophils # 3.5 K/mcL (1.6-8.9); Platelet Count 68 K/mcL (140-400); Segmented Neutrophils % 56.9 %; White Blood Count 6.1 K/mcL (4.3-11.1)
[2020-10-23 06:01] LABS: Calcium 8.8 mg/dL (8.6-10.3); Potassium 3.7 mEq/L (3.5-5.1)
[2020-10-23] MEDS: *HR* Heparin 5,000 UNIT/ML VIAL SQ SCH ×2 (06:39→16:51)
[2020-10-23] MEDS: Lactulose Oral Soln 20 GM/30 ML UDC PO SCH ×2 (08:49→19:55)
[2020-10-23] MEDS: *HR* Acetylcysteine 20% 600 MG/3 ML ORAL SYRINGE PO SCH (08:49)
[2020-10-23] MEDS: Insulin LISPRO 300 UNITS/3 ML VIAL SUBQ SCH ×4 (08:50→19:42)
[2020-10-23] MEDS: Venlafaxine XR (24 HR) 37.5 MG CAP.ER.24H PO SCH (08:50)
[2020-10-23] MEDS: Lactobacillus 1 EACH CAP.SPRINK PO SCH (08:50)
[2020-10-23] MEDS: Finasteride 5 MG TABLET PO SCH (08:51)
[2020-10-23] MEDS ORDERED: [UNRECOGNIZED DRUG - OTHER] TP SCH (09:00)
[2020-10-23] MEDS ORDERED: PETROLATUM WHITE TP SCH (09:00)
[2020-10-23] MEDS ORDERED: ZINC OXIDE TP SCH (09:00)
[2020-10-23] MEDS: Budesonide/Formoterol 160/4.5 1 PUFF INH IH SCH ×2 (09:30→22:27)
[2020-10-23] MEDS: Saline Nasal Spray 44 ML BOTTLE NS SCH (14:35)
[2020-10-23] MEDS: ARIPiprazole 2 MG TABLET PO SCH (19:55)
[2020-10-23] MEDS: traZODone 50 MG TABLET PO SCH (19:55)
[2020-10-24] MEDS: Piperacillin/Tazobactam 3.375 GM in 0.9 % Sodium Chloride Mini Bag 100 ML IVPB SCH ×2 (01:01→11:52)
[2020-10-24] MEDS: Ipratropium/Albuterol Neb 3 ML IH SCH ×4 (03:26→21:28)
[2020-10-24 05:18] LABS: Eosinophils % 7.7 %; Hemoglobin 8.6 g/dL (12.9-16.9); Red Cell Distribution Width 15.1 % (11.5-14.5)
[2020-10-24 05:20] LABS: Basophils % 0.3 %; Eosinophils # 0.4 K/mcL (0.0-0.6); Immature Platelets 1.9 % (1.1-6.1); Lymphocytes # 0.8 K/mcL (0.6-4.6); Lymphocytes % 14.2 %; Mean Corpuscular HGB Conc 31.9 g/dL (31.6-35.5); Mean Corpuscular Hemoglobin 30.2 pg (28.0-33.3); Mean Corpuscular Volume 94.7 fL (83.0-100.0); Mean Platelet Volume 10.5 fL (9.4-12.4); Monocytes # 0.9 K/mcL (0.0-1.3); Monocytes % 15.7 %; Neutrophils # 3.4 K/mcL (1.6-8.9); Red Blood Count 2.85 M/mcL (4.19-5.50); Segmented Neutrophils % 59.1 %; White Blood Count 5.7 K/mcL (4.3-11.1)
[2020-10-24 05:28] LABS: Platelet Count 62 K/mcL (140-400)
[2020-10-24 05:42] LABS: Calcium 8.8 mg/dL (8.6-10.3); Potassium 3.7 mEq/L (3.5-5.1)
[2020-10-24] MEDS: *HR* Heparin 5,000 UNIT/ML VIAL SQ SCH ×2 (06:24→17:08)
[2020-10-24] MEDS: Nystatin POWDER 30 GM BOTTLE TP SCH ×3 (06:25→20:47)
[2020-10-24] MEDS: 0.9 % Sodium Chloride 1,000 ML IVC SCH (07:11)
[2020-10-24] MEDS: Insulin LISPRO 300 UNITS/3 ML VIAL SUBQ SCH ×4 (08:16→20:34)
[2020-10-24] MEDS: Lactulose Oral Soln 20 GM/30 ML UDC PO SCH ×2 (09:12→20:44)
[2020-10-24] MEDS: *HR* Acetylcysteine 20% 600 MG/3 ML ORAL SYRINGE PO SCH (09:14)
[2020-10-24] MEDS: Lactobacillus 1 EACH CAP.SPRINK PO SCH (09:15)
[2020-10-24] MEDS: Venlafaxine XR (24 HR) 37.5 MG CAP.ER.24H PO SCH (09:16)
[2020-10-24] MEDS: Finasteride 5 MG TABLET PO SCH (09:16)
[2020-10-24] MEDS ORDERED: Bisacodyl 10 MG RECTAL SUPPOSITORY RC PRN (10:07)
[2020-10-24] MEDS: Budesonide/Formoterol 160/4.5 1 PUFF INH IH SCH ×2 (11:06→21:28)
[2020-10-24] MEDS: Saline Nasal Spray 44 ML BOTTLE NS SCH (15:27)
[2020-10-24] MEDS ORDERED: Amoxicillin 500 MG CAPSULE PO SCH (16:00)
[2020-10-24] MEDS: Amoxicillin 500 MG CAPSULE PO SCH (20:44)
[2020-10-24] MEDS: ARIPiprazole 2 MG TABLET PO SCH (20:45)
[2020-10-24] MEDS: traZODone 50 MG TABLET PO SCH (20:46)
[2020-10-25 03:17] LABS: Basophils % 0.3 %
[2020-10-25 03:19] LABS: Eosinophils # 0.6 K/mcL (0.0-0.6); Hematocrit 27.8 % (37.5-50.1); Hemoglobin 8.8 g/dL (12.9-16.9); Immature Granulocytes % 1.8 % (0-4); Immature Platelets 2.3 % (1.1-6.1); Lymphocytes % 14.9 %; Mean Corpuscular HGB Conc 31.7 g/dL (31.6-35.5); Mean Corpuscular Hemoglobin 29.9 pg (28.0-33.3); Mean Corpuscular Volume 94.6 fL (83.0-100.0); Mean Platelet Volume 10.4 fL (9.4-12.4); Monocytes # 1.1 K/mcL (0.0-1.3); Monocytes % 16.2 %; Red Blood Count 2.94 M/mcL (4.19-5.50); Red Cell Distribution Width 15.4 % (11.5-14.5); Segmented Neutrophils % 57.8 %; White Blood Count 6.7 K/mcL (4.3-11.1)
[2020-10-25 03:36] LABS: Calcium 8.9 mg/dL (8.6-10.3); Neutrophils # 3.9 K/mcL (1.6-8.9); Platelet Count 70 K/mcL (140-400); Potassium 3.6 mEq/L (3.5-5.1)
[2020-10-25] MEDS: Ipratropium/Albuterol Neb 3 ML IH SCH ×2 (03:39→10:12)
[2020-10-25] MEDS: *HR* Heparin 5,000 UNIT/ML VIAL SQ SCH (06:12)
[2020-10-25] MEDS: Lactobacillus 1 EACH CAP.SPRINK PO SCH (08:00)
[2020-10-25] MEDS: *HR* Acetylcysteine 20% 600 MG/3 ML ORAL SYRINGE PO SCH (08:00)
[2020-10-25] MEDS: Lactulose Oral Soln 20 GM/30 ML UDC PO SCH (08:00)
[2020-10-25] MEDS: Nystatin POWDER 30 GM BOTTLE TP SCH (08:01)
[2020-10-25] MEDS: Finasteride 5 MG TABLET PO SCH (08:02)
[2020-10-25] MEDS: Venlafaxine XR (24 HR) 37.5 MG CAP.ER.24H PO SCH (08:03)
[2020-10-25] MEDS: Amoxicillin 500 MG CAPSULE PO SCH (08:03)
[2020-10-25] MEDS: Insulin LISPRO 300 UNITS/3 ML VIAL SUBQ SCH (08:03)
[2020-10-25] MEDS: Budesonide/Formoterol 160/4.5 1 PUFF INH IH SCH (10:12)
[2020-10-25 11:26] VITALS: BP 147/76
== END 2020-10-25 12:57 | disposition hospice, inpatient (51) ==
LOC: 2ANU 10:32 → EMEROOARM 10:32 → SUATTDRO 14:22 → 2ANU 14:58
PROVIDERS: ADMIT General Practice; ATTEND Internal Medicine